=== PATIENT | female | born 1985 | race Two or more races ===

== ENCOUNTER 2022-06-19 20:05 | Inpatient (IN) | payer OTHER, SELFPAY ==
[2022-06-19 20:11] VITALS: BP 118/71; PULSE 71; RESP 18; TEMP 36.6; O2SAT 97; BMI 62.8
--- NOTE | 2022-06-19 22:33 | ED_ITS ---
HPI - Psych General Chief Complaint: Psychiatric Symptoms Stated Complaint: crisis Time Seen by Provider: 06/19/22 21:30 Source: patient Mode of arrival: ambulatory Limitations: no limitations History of Present Illness HPI Narrative: This is a 37-year-old female presenting to the emergency department with complaints of depression, anxiety for the past few days, patient tells me that this all started after she was diagnosed with a facial paralysis ([place] Palsy) on Sunday, 3 days ago at [facility]. She also reports many at home stressors such as her son being autistic, she reports that son is f requently with the grandmother. She reports that she is not eating, or sleeping. She reports that she stays up crying all day and night. She denies visual, auditory and tactile hallucinations. Denies SI and HI. Denies drugs, alcohol and tobacco. Denies any medical complaints at this time MD complaint: feels depressed and anxiety Onset (ago): day(s) (3) Duration: constant History of same: Yes Relieving factors: none Exacerbating factors: none Associated psychiatric symptoms: none Associated symptoms: denies other symptoms Treatments prior to arrival: none Related Data Home Medications Medication Instructions Recorded Confirmed amitriptyline 100 mg tablet 1 tab PO BEDTIME 06/19/22 06/19/22 gabapentin 600 mg tablet 1 tab PO TID 06/19/22 06/19/22 multivitamin 1 tab PO DAILY 06/19/22 06/19/22 oxcarbazepine 300 mg tablet 1 tab PO DAILY@1400 06/19/22 06/19/22 oxcarbazepine 600 mg tablet 1 tab PO BID 06/19/22 06/19/22 pantoprazole 40 mg tablet,delayed 1 tab PO DAILY 06/19/22 06/19/22 release peg [id number] 1 1 drp ophthalmic (eye) BID PRN dry 06/19/22 06/19/22 %-0.2 %-0.2 % eye drops eyes (Artificial Tears ([id number])) prednisone 20 mg tablet 2 tab PO DAILY 06/19/22 06/19/22 sertraline 100 mg tablet 2 tab PO DAILY 06/19/22 06/19/22 Allergies Allergy/AdvReac Type Severity Reaction Status Date / Time morphine Allergy Intermediate Unknown Verified 08/08/22 20:10 Review of Systems Review of Systems: Constitutional : No Weight loss, No Fever, No Chills, No Fatigue, No Malaise ENT/Mouth : No sore throat, No Rhinorrhea Eyes: No Eye Pain, No Swelling, No Redness Cardiovascular : No Chest Pain, No SOB, No Dyspnea on Exertion, No Orthopnea, No Edema, No Palpitations Respiratory : No Cough, No Sputum, No Wheezing Gastrointestinal : No Nausea, No Vomiting, No Diarrhea, No Constipation, No abdominal Pain, No Hematochezia, No Melena Genitourinary : No Dysuria, No Urinary Frequency, No Hematuria, Musculoskeletal : No joint pain, No Myalgias, No Joint Swelling Skin : No Skin Lesions, No rash Neuro : No Weakness, No Numbness, No Dizziness, No Headache Psych : + Anxiety/Panic, + Depression All other systems reviewed and are negative Yes all other systems are reviewed and are negative [facility] Past Medical History Attestation statement: The following information was validated with the patient. Source: old records reviewed and nursing notes reviewed Social History Social History Advance Directives: No Advance Directives Information Provided: No Physical Exam Vital Signs: Vital Signs: Last Vital Signs Temp 98.4 F 06/20/22 00:00 Pulse 57 06/20/22 00:00 Resp 16 06/20/22 00:00 BP 117/58 L 06/20/22 00:00 Pulse Ox 100 06/20/22 00:00 O2 Del Method 06/19/22 22:40 BMI result Body Mass Index 62.8 vss Appearance: Alert.? Oriented X3.? No acute distress.? Head: Normocephalic, atraumatic, no step-offs or deformities + left sided bells palsy Eyes: Pupils equal, round and reactive to light.? ENT: Pharynx normal.? Neck: Normal inspection.? Neck supple.? CVS: Normal heart rate and rhythm.? Pulses normal.? Respiratory: No respiratory distress.? Breath sounds normal.? Abdomen: Soft and nontender.? Skin: Skin warm and dry.? Normal skin color.? Normal skin turgor.? Extremities: No lower extremity edema.? No calf ttp. 5/5 strength to bilateral upper and lower extremities Back: No midline tenderness, no C-spine tenderness, full range of motion, no CVA tenderness bilaterally Neuro: Oriented X 3.? No motor deficit.? No sensory deficit. CN 2-12 intact Course Reevaluation(s) Reevaluation #1: CBC within normal limits. Chemistry with no acute electrolyte abnormalities requiring intervention. Urine clean, no infection. Urine toxicology positive for marijuana. Ethanol negative. COVID negative. At this time patient will be placed into physician observation to allow more time to be evaluated by the behavioral health team. At time observation was started patient common cooperative no acute distress. Will continue to monitor Time: 01:13 MDM - Psych MDM Narrative Medical decision making narrative: 2130 37 year old female presents with anxiety, depression after being diagnosed with a facial paralysis. Physical examination with left-sided Castanon's palsy. I did review [facility] records, patient was seen there for Castanon's palsy, this is not a new finding. She is currently being followed by outpatient providers for this. Plan at this time is medical clearance and evaluation by the behavioral health team. Medical Records Attestation: I reviewed the patient's medical records. Lab Data Attestation: I reviewed the patient's lab results. Result diagrams: 06/19/22 23:51 06/19/22 23:51 Labs: Lab Results 06/19/22 06/19/22 06/19/22 Range/Units 23:11 23:51 23:51 WBC 10.3 (4.8-10.8) X10*3/uL RBC 4.81 (4.20-5.50) X10*6/uL Hgb 13.5 (12.0-16.0) g/dl Hct 42.3 (37.0-47.0) % MCV 87.9 (80.0-98.0) fL MCH 28.1 (27.0-33.0) pg MCHC 31.9 (31.0-35.0) g/dl RDW 13.7 (11.0-16.0) % Plt Count 259 (160-400) X10*3/uL MPV 9.4 (9.4-12.3) fL Immature Gran % (Auto) 0.3 (0.0-0.4) % Neut % (Auto) 82.2 H (45-73) % Lymph % (Auto) 14.5 L (20-40) % Sanders % (Auto) 2.8 (2-11) % Eos % (Auto) 0.0 (0-4) % Baso % (Auto) 0.2 (0-2) % Lymph # (Auto) 1.5 (1.2-4.9) X10*3/uL [place] # (Auto) 0.3 (0.1-1.2) X10*3/uL Eos # (Auto) 0.0 (0.0-0.4) X10*3/uL Baso # (Auto) 0.0 (0.0-0.2) X10*3/uL Abs Immat Gran (auto) 0.03 (0.00-0.03) X10*3/uL Absolute Neuts (auto) 8.4 H (2.0-8.3) x10*3/uL Absolute Nucleated RBC 0.000 (0.0-0.012) X10*3/uL Nucleated RBC % (auto) 0.0 (0.0-0.2) /100WBC Sodium 137 (135-145) mmol/L Potassium 4.6 (3.3-5.1) mmol/L Chloride 100 (96-108) mmol/L Carbon Dioxide 27 (22-29) mmol/L Anion Gap 15 (12-20) BUN 22 H (9-16) mg/dL Creatinine 0.77 (0.5-1.4) mg/dL Estim Creat Clear Calc 172.6 Estimated GFR > 60 Random Glucose 95 (60-115) mg/dL Calcium 9.1 (8.4-10.2) mg/dL Magnesium 2.0 (1.6-2.6) mg/dL Total Bilirubin 0.4 (0.0-1.0) mg/dL AST 16 (5-31) U/L ALT 12 (0-31) U/L Alkaline Phosphatase 53 (39-117) U/L Total Protein 7.7 (6.5-8.0) g/dL Albumin 4.2 (3.5-5.0) g/dL Urine Color Urine Appearance Urine pH (5.0-8.0) Ur Specific [place] (1.005-1.025) Urine Protein (NEG-TRACE) MG/DL Urine Glucose (UA) (NEG) MG/DL Urine Ketones (NEG) MG/DL Urine Blood (NEG) Urine Nitrite (NEG) Ur Leukocyte Esterase (NEG) Urine RBC (0) /HPF Urine WBC (0-4) /HPF Ur Squamous Epith Cells /LPF Urine Bacteria /LPF Urine Mucus /LPF Urine Opiates Screen (Not Detect) Urine Fentanyl Screen (Not Detect) Ur Barbiturates Screen (Not Detect) Ur Phencyclidine Scrn (Not Detect) Ur Amphetamines Screen (Not Detect) U Benzodiazepines Scrn (Not Detect) Urine Cocaine Screen (Not Detect) U Marijuana (THC) Screen (Not Detect) Ethyl Alcohol < 10 mg/dL COVID-19 (ARPIT) Negative (Negative) COVID-19 Clin Com See Note 06/20/22 06/20/22 Range/Units 00:08 00:08 WBC (4.8-10.8) X10*3/uL RBC (4.20-5.50) X10*6/uL Hgb (12.0-16.0) g/dl Hct (37.0-47.0) % MCV (80.0-98.0) fL MCH (27.0-33.0) pg MCHC (31.0-35.0) g/dl RDW (11.0-16.0) % Plt Count (160-400) X10*3/uL MPV (9.4-12.3) fL Immature Gran % (Auto) (0.0-0.4) % Neut % (Auto) (45-73) % Lymph % (Auto) (20-40) % Sanders % (Auto) (2-11) % Eos % (Auto) (0-4) % Baso % (Auto) (0-2) % Lymph # (Auto) (1.2-4.9) X10*3/uL Sanders # (Auto) (0.1-1.2) X10*3/uL Eos # (Auto) (0.0-0.4) X10*3/uL Baso # (Auto) (0.0-0.2) X10*3/uL Abs Immat Gran (auto) (0.00-0.03) X10*3/uL Absolute Neuts (auto) (2.0-8.3) x10*3/uL Absolute Nucleated RBC (0.0-0.012) X10*3/uL Nucleated RBC % (auto) (0.0-0.2) /100WBC Sodium (135-145) mmol/L Potassium (3.3-5.1) mmol/L Chloride (96-108) mmol/L Carbon Dioxide (22-29) mmol/L Anion Gap (12-20) BUN (9-16) mg/dL Creatinine (0.5-1.4) mg/dL Estim Creat Clear Calc Estimated GFR Random Glucose (60-115) mg/dL Calcium (8.4-10.2) mg/dL Magnesium (1.6-2.6) mg/dL Total Bilirubin (0.0-1.0) mg/dL AST (5-31) U/L ALT (0-31) U/L Alkaline Phosphatase (39-117) U/L Total Protein (6.5-8.0) g/dL Albumin (3.5-5.0) g/dL Urine Color YELLOW Urine Appearance CLEAR Urine pH 6.0 (5.0-8.0) Ur Specific [place] 1.020 (1.005-1.025) Urine Protein NEG (NEG-TRACE) MG/DL Urine Glucose (UA) NEG (NEG) MG/DL Urine Ketones NEG (NEG) MG/DL Urine Blood NEG (NEG) Urine Nitrite NEG (NEG) Ur Leukocyte Esterase TRACE H (NEG) Urine RBC 0 (0) /HPF Urine WBC 1-4 (0-4) /HPF Ur Squamous Epith Cells 2+ /LPF Urine Bacteria 2+ /LPF Urine Mucus 2+ /LPF Urine Opiates Screen Not Detected (Not Detect) Urine Fentanyl Screen Not Detected (Not Detect) Ur Barbiturates Screen Not Detected (Not Detect) Ur Phencyclidine Scrn Not Detected (Not Detect) Ur Amphetamines Screen Not Detected (Not Detect) U Benzodiazepines Scrn Not Detected (Not Detect) Urine Cocaine Screen Not Detected (Not Detect) U Marijuana (THC) Screen POSITIVE H (Not Detect) Ethyl Alcohol mg/dL COVID-19 (ARPIT) (Negative) COVID-19 Clin Com Critical Care Time Critical Care Time Critical Care Time: No Discharge Plan Discharge Clinical Impression: Depression, Acute anxiety Patient Disposition: Still a Patient Prescriptions: No Action multivitamin Tablet 1 tab PO DAILY gabapentin 600 mg tablet 1 tab PO TID prednisone 20 mg tablet 2 tab PO DAILY Rx Instructions: X 4 DAYS sertraline 100 mg tablet 2 tab PO DAILY oxcarbazepine 300 mg tablet 1 tab PO DAILY@1400 pantoprazole 40 mg tablet,delayed release (DR/EC) 1 tab PO DAILY oxcarbazepine 600 mg tablet 1 tab PO BID amitriptyline 100 mg tablet 1 tab PO BEDTIME Artificial Tears([id number]) 1-0.2-0.2 % drops 1 drp ophthalmic (eye) BID PRN (Reason: dry eyes)
--- NOTE | 2022-06-19 22:38 | PHA.MEDREC ---
Pharmacy Consult ? Medication Reconciliation Pharmacy has completed the medication reconciliation. PT HAD BOTTLES NEXT TO HER, MATCHED INS CLAIM HX
[2022-06-19 22:40] VITALS: BP 120/62; PULSE 74; RESP 16; TEMP 36.8; O2SAT 98
--- NOTE | 2022-06-19 22:49 | MHC.CARE ---
Pt was evaluated by Amy in the community prior to arrival and is an inpatient psych bedsearch.
[2022-06-19 23:35] LABS: COVID-19 Test Negative (Negative)
[2022-06-19 23:54] LABS: MANUAL DIFF FLAG NO
[2022-06-19 23:56] LABS: Basophils Percent Auto 0.2 % (0-2); Hematocrit 42.3 % (37.0-47.0); Hemoglobin 13.5 g/dl (12.0-16.0); Imm Gran Abs Auto 0.03 X10*3/uL (0.00-0.03); Imm Gran Pct Auto 0.3 % (0.0-0.4); Lymphocytes Absolute Auto 1.5 X10*3/uL (1.2-4.9); Lymphocytes Percent Auto 14.5 % (20-40); Mean Corpuscular HGB Conc 31.9 g/dl (31.0-35.0); Mean Corpuscular Hemoglobin 28.1 pg (27.0-33.0); Mean Corpuscular Volume 87.9 fL (80.0-98.0); Mean Platelet Volume 9.4 fL (9.4-12.3); Monocytes Absolute Auto 0.3 X10*3/uL (0.1-1.2); Monocytes Percent Auto 2.8 % (2-11); Neutrophils Absolute Auto 8.4 x10*3/uL (2.0-8.3); Neutrophils Percent Auto 82.2 % (45-73); Platelet Count 259 X10*3/uL (160-400); Red Blood Count 4.81 X10*6/uL (4.20-5.50); Red Cell Distribution Width 13.7 % (11.0-16.0); White Blood Count 10.3 X10*3/uL (4.8-10.8)
[2022-06-20] VITALS: BP 117/58; PULSE 57; RESP 16; TEMP 36.9; O2SAT 100
--- NOTE | 2022-06-20 | ECG_ITS ---
Test Reason : med clearance Blood Pressure : / mmHG Vent. Rate : 055 BPM Atrial Rate : 055 BPM P-R Int : 136 ms QRS Dur : 084 ms QT Int : 416 ms P-R-T Axes : 035 010 023 degrees QTc Int : 397 ms Sinus bradycardia Otherwise normal ECG No previous ECGs available Referred By: Estrella Ferro Electronically Signed By:YUMI HALL
[2022-06-20 00:19] LABS: Appearance Urine CLEAR; Color Urine YELLOW; Glucose Urine UA NEG (NEG); Leukocyte Esterase Urine TRACE (NEG); Nitrite Urine NEG (NEG); Urine Blood NEG (NEG); Urine Ketones NEG (NEG); Urine Protein NEG (NEG-TRACE)
[2022-06-20 00:22] LABS: Alanine Aminotransferase 12 U/L (0-31); Albumin Level 4.2 g/dL (3.5-5.0); Alkaline Phosphatase 53 U/L (39-117); Anion Gap 15 (12-20); Aspartate Amino Transferase 16 U/L (5-31); Bilirubin Total 0.4 mg/dL (0.0-1.0); Blood Urea Nitrogen 22 mg/dL (9-16); Calcium 9.1 mg/dL (8.4-10.2); Carbon Dioxide 27 mmol/L (22-29); Chloride 100 mmol/L (96-108); Creatinine Clr Calc Pharmacy 172.6; Estimated Glomerular Filt Rate > 60; Ethanol < 10 mg/dL; Glucose Random 95 mg/dL (60-115); Potassium 4.6 mmol/L (3.3-5.1); Sodium 137 mmol/L (135-145); Total Protein 7.7 g/dL (6.5-8.0)
[2022-06-20 00:23] LABS: Bacteria Urine 2+ /LPF; Mucus Urine 2+ /LPF; RBC Urine 0 /HPF (0); Squamous Epithelial Cell Urine 2+ /LPF
[2022-06-20 00:33] LABS: Amphetamine Screen Urine Not Detected (Not Detect); Barbiturates, Urine Not Detected (Not Detect); Benzodiazepines Screen Urine Not Detected (Not Detect); Cannabinoid Screen Urine POSITIVE (Not Detect); Cocaine Screen Urine Not Detected (Not Detect); Fentanyl, urine Not Detected (Not Detect); Opiate Screen Urine Not Detected (Not Detect); Phencyclidine Screen Urine Not Detected (Not Detect)
[2022-06-20 04:00] VITALS: BP 103/54; PULSE 55; RESP 16; TEMP 36.8; O2SAT 100
[2022-06-20 06:00] VITALS: BP 102/49; PULSE 51; RESP 16; TEMP 36.8; O2SAT 100
[2022-06-20] MEDS: Acetaminophen 325 MG TABLET 650 MG PO ×2 (09:14→20:47)
[2022-06-20] MEDS: OXcarbazepine 300 MG TABLET 600 MG PO ×2 (09:14→20:47)
[2022-06-20] MEDS: Omeprazole 20 MG CAPSULE.DR PO (09:15)
[2022-06-20] MEDS: Gabapentin 600 MG TABLET PO ×3 (09:15→20:47)
[2022-06-20] MEDS: Sertraline HCL 100 MG TABLET 200 MG PO (09:15)
[2022-06-20] MEDS: Multivitamin TABLET 1 TAB PO (09:15)
[2022-06-20] MEDS: predniSONE 20 MG TABLET 40 MG PO (09:15)
[2022-06-20] MEDS: OXcarbazepine 300 MG TABLET PO (14:09)
[2022-06-20] MEDS: Acetaminophen 325 MG TABLET 975 MG PO (14:11)
[2022-06-20 14:18] VITALS: BP 115/55; PULSE 68; RESP 14; O2SAT 98
[2022-06-20] MEDS: Amitriptyline HCl 50 MG TABLET 100 MG PO (20:47)
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
[2022-06-21] MEDS: OXcarbazepine 300 MG TABLET 600 MG PO ×2 (08:23→21:16)
[2022-06-21] MEDS: Omeprazole 20 MG CAPSULE.DR PO (08:23)
[2022-06-21] MEDS: Multivitamin TABLET 1 TAB PO (08:23)
[2022-06-21] MEDS: predniSONE 20 MG TABLET 40 MG PO (08:23)
[2022-06-21] MEDS: Gabapentin 600 MG TABLET PO ×3 (08:24→21:16)
[2022-06-21] MEDS: Sertraline HCL 100 MG TABLET 200 MG PO (08:24)
[2022-06-21 08:28] VITALS: BP 116/55; PULSE 61; RESP 20; TEMP 36.7; O2SAT 97
[2022-06-21 09:11] LABS: Estimated Average Glucose 97 mg/dL
[2022-06-21 09:35] LABS: Cholesterol 169 mg/dL; HDL Cholesterol 53 mg/dL; LDL Cholesterol Calculated 107 mg/dl; Magnesium 2.1 mg/dL (1.6-2.6); Triglycerides 48 mg/dL
[2022-06-21 09:46] LABS: Free T4 (Free Thyroxine) 0.94 ng/dL (0.71-1.85); Thyroid Stimulating Hormone 0.65 uIU/mL (0.32-4.0)
[2022-06-21 09:59] LABS: Folate 12.8 ng/mL (> or = 4.0); Vitamin B12 544 pg/mL (200-900)
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
[2022-06-21] MEDS: OXcarbazepine 300 MG TABLET PO (14:31)
[2022-06-21] MEDS: Artificial Tears 15 ML DROPS 2 DROP EYE-BOTH (15:05)
[2022-06-21] MEDS: clonazePAM 0.5 MG TABLET PO (15:05)
[2022-06-21 18:00] VITALS: BP 108/63; PULSE 63; RESP 18; TEMP 36.8; O2SAT 95
[2022-06-21] MEDS: traZODone HCL 50 MG TABLET PO (21:16)
[2022-06-21] MEDS: Amitriptyline HCl 50 MG TABLET 100 MG PO (21:17)
[2022-06-22 06:00] VITALS: BP 102/60; PULSE 71; RESP 15; TEMP 36.6; O2SAT 95
[2022-06-22 07:00] VITALS: BMI 62.1
[2022-06-22] MEDS: Omeprazole 20 MG CAPSULE.DR PO (09:39)
[2022-06-22] MEDS: Multivitamin TABLET 1 TAB PO (09:41)
[2022-06-22] MEDS: Gabapentin 600 MG TABLET PO ×3 (09:41→20:01)
[2022-06-22] MEDS: predniSONE 20 MG TABLET 40 MG PO (09:41)
[2022-06-22] MEDS: Sertraline HCL 100 MG TABLET 200 MG PO (09:41)
[2022-06-22] MEDS: OXcarbazepine 300 MG TABLET 600 MG PO ×2 (09:41→20:01)
[2022-06-22] MEDS: Artificial Tears 15 ML DROPS 2 DROP EYE-BOTH ×2 (09:44→20:39)
--- NOTE | 2022-06-22 10:30 | P.PNPSI_ITS ---
Subjective Subjective Date of Service: 06/22/22 Reason For Visit: Depression Interim History: Patient seen with punch press setter Patient reports she still feeling depressed and anxious; she says it has been difficult to process her feelings with such intense activity on the unit (high acuity by male peers). She is ambivalent about changing/adding medications; she feels that 80% of the time her medications are adequate, however she finds she can still get quite anxious and emotional and so upon further discussion agrees to add BuSpar to her medication regimen to see if it can help lower some of her chronic anxiety. She also was interested in increasing amitriptyline, however agrees to hold off for now and see how she does. Mental Status Exam Mental Status Exam Narrative: Pt is alert and oriented; behavior is cooperative, friendly and calm; patient is not in distress; dressed in casual attire with unkempt hair but adequate hygiene; mood is described as depressed and affect congruent; eye contact appropriate; Speech is normal rate, volume and prosody and not pressured; no psychomotor agitation/retardation present; thought process is organized and goal directed; Thought content is on tx; otherwise pertinent to relevant topics and without any delusional content, paranoid ideations or grandiosity; denies any SI/HI. There is no evidence of perceptual disturbance. Patients insight and judgment appear intact. Diagnostics Vital Signs (24Hr): Vital Signs - 24 hr 06/21/22 18:00 06/22/22 06:00 Temperature 98.3 F 97.8 F Pulse Rate 63 71 Respiratory Rate 18 15 Blood Pressure 108/63 102/60 Pulse Oximetry 95 95 Oxygen Delivery Method Room Air Room Air BMI result Body Mass Index 62.1 Labs Results: 06/19/22 23:51 06/19/22 23:51 Labs: Laboratory Results - last 48 hr 06/21/22 06/21/22 06/21/22 08:05 08:05 08:05 Estimat Average Glucose 97 Hemoglobin A1c % 5.0 Magnesium 2.1 Triglycerides 48 Cholesterol 169 LDL Cholesterol, Calc 107 HDL Cholesterol 53 Vitamin B12 544 Folate 12.8 TSH 0.65 Free T4 0.94 Medications Medications Current Medications Acetaminophen (Acetaminophen 325 Mg Tablet) 650 mg PO Q6H PRN PRN Reason: Headache/Pain Mild Scale (1-3) Last Admin: 06/20/22 20:47 Dose: 650 mg Al Hydroxide/Mg Hydroxide (Magnesium Hydrox/Alum Hydrox 30 Ml Oral.Susp) 30 ml PO Q6H PRN PRN Reason: Heartburn/Nausea Amitriptyline HCl (Amitriptyline Hcl 50 Mg Tablet) 100 mg PO BEDTIME [facility] Last Admin: 06/21/22 21:17 Dose: 100 mg Artificial Tears (Artificial Tears 15 Ml Drops) 2 drop EYE-BOTH BID PRN PRN Reason: dry eyes Last Admin: 06/22/22 09:44 Dose: 2 drop Gabapentin (Gabapentin 600 Mg Tablet) 600 mg PO TID [facility] Last Admin: 06/22/22 09:41 Dose: 600 mg Hydroxyzine HCl (Hydroxyzine Hcl 25 Mg Tablet) 25 mg PO Q6H PRN PRN Reason: Anxiety Magnesium Hydroxide (Milk Of Magnesia 30 Ml Oral.Susp) 30 ml PO DAILY PRN PRN Reason: Constipation Multivitamins/Vitamin C (Multivitamin Tablet) 1 tab PO DAILY [facility] Last Admin: 06/22/22 09:41 Dose: 1 tab Omeprazole (Omeprazole 20 Mg Capsule.Dr) 20 mg PO DAILY@0630 [facility] Last Admin: 06/22/22 09:39 Dose: 20 mg Oxcarbazepine (Oxcarbazepine 300 Mg Tablet) 300 mg PO DAILY@1400 [facility] Last Admin: 06/21/22 14:31 Dose: 300 mg Oxcarbazepine (Oxcarbazepine 300 Mg Tablet) 600 mg PO BID [facility] Last Admin: 06/22/22 09:41 Dose: 600 mg Pharmacy Consult (Consult Rx Perform Med Rec) 1 each MISCELLANE ONCE PRN PRN Reason: Consult order Prednisone (Prednisone 20 Mg Tablet) 40 mg PO DAILY [facility] Last Admin: 06/22/22 09:41 Dose: 40 mg Sertraline HCl (Sertraline Hcl 100 Mg Tablet) 200 mg PO DAILY [facility] Last Admin: 06/22/22 09:41 Dose: 200 mg Trazodone HCl (Trazodone Hcl 50 Mg Tablet) 50 mg PO BEDTIME PRN PRN Reason: Insomnia Last Admin: 06/21/22 21:16 Dose: 50 mg Allergies Allergies Allergy/AdvReac Type Severity Reaction Status Date / Time morphine Allergy Intermediate Unknown Verified 06/19/22 20:10 Assessment & Plan Assessment & Plan (1) Adjustment disorder with mixed anxiety and depressed mood: Status: Acute Code(s): F43.23 - Adjustment disorder with mixed anxiety and depressed mood (2) Castanon's palsy: Status: Acute Code(s): G51.0 - Castanon's palsy (3) MDD (major depressive disorder), recurrent episode, moderate: Status: Acute Code(s): F33.1 - Major depressive disorder, recurrent, moderate (4) Chronic post-traumatic stress disorder (PTSD): Status: Acute Code(s): F43.12 - Post-traumatic stress disorder, chronic Plan Patient seen with punch press setter Patient is a is 37 year old woman with history depression, anxiety, PTSD, currently with bills palsy affecting left side of face who presents for anxiety and depression, feeling overwhelmed by psychosocial stressors and recently acquiring Castanon's palsy. 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 Patient educated on: diagnosis and medication risk/benefits Informed Consent: understands Reason for contiued inpatient stay Substantial Risk for: stable for discharge
[2022-06-22] MEDS: Acetaminophen 325 MG TABLET 650 MG PO ×2 (10:42→19:43)
[2022-06-22] MEDS: OXcarbazepine 300 MG TABLET PO (13:23)
[2022-06-22] MEDS: Lidocaine 4 % Patch ADH..PATCH 1 PATCH TRANSDERMA (14:40)
[2022-06-22] MEDS: busPIRone HCl 5 MG TABLET PO ×2 (15:23→20:02)
[2022-06-22 16:21] VITALS: BP 122/57; PULSE 73; TEMP 36.7; O2SAT 98
[2022-06-22] MEDS: Amitriptyline HCl 50 MG TABLET 100 MG PO (20:01)
[2022-06-23 06:00] VITALS: BP 112/59; PULSE 69; RESP 18; TEMP 36.6; O2SAT 96
[2022-06-23] MEDS: Omeprazole 20 MG CAPSULE.DR PO (06:22)
[2022-06-23] MEDS: Gabapentin 600 MG TABLET PO ×3 (09:09→20:47)
[2022-06-23] MEDS: busPIRone HCl 5 MG TABLET PO (09:09)
[2022-06-23] MEDS: Sertraline HCL 100 MG TABLET 200 MG PO (09:10)
[2022-06-23] MEDS: Multivitamin TABLET 1 TAB PO (09:10)
[2022-06-23] MEDS: OXcarbazepine 300 MG TABLET 600 MG PO ×2 (09:10→20:49)
[2022-06-23] MEDS: Lidocaine 4 % Patch ADH..PATCH 1 PATCH TRANSDERMA (09:10)
[2022-06-23] MEDS: Acetaminophen 325 MG TABLET 650 MG PO ×2 (09:17→18:01)
--- NOTE | 2022-06-23 10:35 | P.PNPSI_ITS ---
Subjective Subjective Date of Service: 06/23/22 Reason For Visit: Depression Interim History: Patient seen with official court interpreter Patient reports she is feeling better. She says she felt calm most of the day yesterday, despite the fact that the acuity on the unit was quite high. She f eels that the addition of buspirone has been helpful and wants to continue it and agrees to increase dose. She still did not sleep well and asks if amitriptyline can be increased to which gag writer agrees. Patient was relieved to find out she had a neuro appointment for July 19 and that cardiology appointment is pending. She said that her daughter call today crying because of some bill at home and still Patient did not get dysregulated which is evidence to her that she is doing better. Mental Status Exam Mental Status Exam Narrative: Pt is alert and oriented; behavior is cooperative, friendly and calm; patient is not in distress; dressed in casual attire with unkempt hair but adequate hygiene; mood is described as better and affect congruent; eye contact appropriate; Speech is normal rate, volume and prosody and not pressured; no psychomotor agitation/retardation present; thought process is organized and goal directed; Thought content is on tx; otherwise pertinent to relevant topics and without any delusional content, paranoid ideations or grandiosity; denies any SI/HI. There is no evidence of perceptual disturbance. Patients insight and judgment appear intact. Diagnostics Vital Signs (24Hr): Vital Signs - 24 hr 06/22/22 16:21 06/23/22 06:00 Temperature 98.1 F 97.9 F Pulse Rate 73 69 Respiratory Rate 18 Blood Pressure 122/57 L 112/59 L Pulse Oximetry 98 96 BMI result Body Mass Index 62.1 Labs Results: 06/19/22 23:51 06/19/22 23:51 Medications Medications Current Medications Acetaminophen (Acetaminophen 325 Mg Tablet) 650 mg PO Q6H PRN PRN Reason: Headache/Pain Mild Scale (1-3) Last Admin: 06/23/22 09:17 Dose: 650 mg Al Hydroxide/Mg Hydroxide (Magnesium Hydrox/Alum Hydrox 30 Ml Oral.Susp) 30 ml PO Q6H PRN PRN Reason: Heartburn/Nausea Amitriptyline HCl (Amitriptyline Hcl 50 Mg Tablet) 100 mg PO BEDTIME [facility] Last Admin: 06/22/22 20:01 Dose: 100 mg Artificial Tears (Artificial Tears 15 Ml Drops) 2 drop EYE-BOTH BID PRN PRN Reason: dry eyes Last Admin: 06/22/22 20:39 Dose: 2 drop Gabapentin (Gabapentin 600 Mg Tablet) 600 mg PO TID [facility] Last Admin: 06/23/22 09:09 Dose: 600 mg Hydroxyzine HCl (Hydroxyzine Hcl 25 Mg Tablet) 25 mg PO Q6H PRN PRN Reason: Anxiety Lidocaine (Lidocaine 4 % Patch Adh..Patch) 1 patch TRANSDERMA DAILY [facility]; Protocol Last Admin: 06/23/22 09:10 Dose: 1 patch Magnesium Hydroxide (Milk Of Magnesia 30 Ml Oral.Susp) 30 ml PO DAILY PRN PRN Reason: Constipation Multivitamins/Vitamin C (Multivitamin Tablet) 1 tab PO DAILY [facility] Last Admin: 06/23/22 09:10 Dose: 1 tab Omeprazole (Omeprazole 20 Mg Capsule.Dr) 20 mg PO DAILY@0630 [facility] Last Admin: 06/23/22 06:22 Dose: 20 mg Oxcarbazepine (Oxcarbazepine 300 Mg Tablet) 300 mg PO DAILY@1400 [facility] Last Admin: 06/22/22 13:23 Dose: 300 mg Oxcarbazepine (Oxcarbazepine 300 Mg Tablet) 600 mg PO BID [facility] Last Admin: 06/23/22 09:10 Dose: 600 mg Pharmacy Consult (Consult Rx Perform Med Rec) 1 each MISCELLANE ONCE PRN PRN Reason: Consult order Sertraline HCl (Sertraline Hcl 100 Mg Tablet) 200 mg PO DAILY [facility] Last Admin: 06/23/22 09:10 Dose: 200 mg Trazodone HCl (Trazodone Hcl 50 Mg Tablet) 50 mg PO BEDTIME PRN PRN Reason: Insomnia Last Admin: 06/21/22 21:16 Dose: 50 mg Allergies Allergies Allergy/AdvReac Type Severity Reaction Status Date / Time morphine Allergy Intermediate Unknown Verified 06/19/22 20:10 Assessment & Plan Assessment & Plan (1) Adjustment disorder with mixed anxiety and depressed mood: Status: Acute Code(s): F43.23 - Adjustment disorder with mixed anxiety and depressed mood (2) Castanon's palsy: Status: Acute Code(s): G51.0 - Castanon's palsy (3) MDD (major depressive disorder), recurrent episode, moderate: Status: Acute Code(s): F33.1 - Major depressive disorder, recurrent, moderate (4) Chronic post-traumatic stress disorder (PTSD): Status: Acute Code(s): F43.12 - Post-traumatic stress disorder, chronic Plan Patient seen with official court interpreter Patient is a is 37 year old woman with history depression, anxiety, PTSD, currently with bills palsy affecting left side of face who presents for anxiety and depression, feeling overwhelmed by psychosocial stressors and recently acquiring Castanon's palsy. -seems possibly adjustment disorder and that medication regimen is currently adequate; gave patient 1 time dose of clonazepam, otherwise will give patient some time to settle down before making medication changes 06/22 still depressed, no SI; agrees to buspirone 06/23 Patient feeling better, more calm, feels medication change helping Plan: CV Q 15 minute checks Increased to Buspirone 10 mg BID;Will also make A 10 mg tab available for p.r.n. anxiety Increased to amitriptyline 125 q.h.s. 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 Patient educated on: diagnosis and medication risk/benefits Informed Consent: understands Reason for contiued inpatient stay Substantial Risk for: stable for discharge
[2022-06-23] MEDS: OXcarbazepine 300 MG TABLET PO (14:28)
[2022-06-23] MEDS: Artificial Tears 15 ML DROPS 2 DROP EYE-BOTH (15:07)
[2022-06-23 16:03] VITALS: BP 118/65; PULSE 96; TEMP 37.2; O2SAT 96
[2022-06-23] MEDS: Magnesium Hydrox/Alum Hydrox 30 ML ORAL.SUSP PO (18:01)
[2022-06-23] MEDS: Amitriptyline HCl 50 MG TABLET 125 MG PO (20:47)
[2022-06-23] MEDS: busPIRone HCl 10 MG TABLET PO (20:49)
[2022-06-24 06:37] VITALS: BP 105/60; PULSE 70; TEMP 37.1; O2SAT 95
[2022-06-24] MEDS: Multivitamin TABLET 1 TAB PO (09:06)
[2022-06-24] MEDS: Sertraline HCL 100 MG TABLET 200 MG PO (09:06)
[2022-06-24] MEDS: Gabapentin 600 MG TABLET PO ×3 (09:06→19:59)
[2022-06-24] MEDS: busPIRone HCl 10 MG TABLET PO ×2 (09:06→19:59)
[2022-06-24] MEDS: OXcarbazepine 300 MG TABLET 600 MG PO ×2 (09:06→19:58)
[2022-06-24] MEDS: Omeprazole 20 MG CAPSULE.DR PO (09:07)
[2022-06-24] MEDS: Lidocaine 4 % Patch ADH..PATCH 1 PATCH TRANSDERMA (10:14)
[2022-06-24] MEDS: Milk of Magnesia 30 ML ORAL.SUSP PO (13:47)
[2022-06-24] MEDS: OXcarbazepine 300 MG TABLET PO (14:50)
--- NOTE | 2022-06-24 16:15 | P.PNPSI_ITS ---
Subjective Subjective Date of Service: 06/24/22 Reason For Visit: Depression Interim History: Remains feeling that anxiety is much less; also reports that she slept well, the 1st time since admission and wants to continue with increased amitriptyline dose. Patient feels mood has improved as well. Complains of constipation agrees to Mag citrate. Patient did complain of some tremors yesterday evening and wondered if it was from the new medication; the resolved on their own Mental Status Exam Mental Status Exam Narrative: Pt is alert and oriented; behavior is cooperative, friendly and calm; patient is not in distress; dressed in casual attire with unkempt hair but adequate hygiene; mood is described as better and affect congruent; eye contact appropriate; Speech is normal rate, volume and prosody and not pressured; no psychomotor agitation/retardation present; thought process is organized and goal directed; Thought content is on tx; otherwise pertinent to relevant topics and without any delusional content, paranoid ideations or grandiosity; denies any SI/HI. There is no evidence of perceptual disturbance. Patients insight and judgment appear intact. Diagnostics Vital Signs (24Hr): Vital Signs - 24 hr 06/24/22 06:37 Temperature 98.8 F Pulse Rate 70 Blood Pressure 105/60 Pulse Oximetry 95 BMI result Body Mass Index 62.1 Labs Results: 06/19/22 23:51 06/19/22 23:51 Medications Medications Current Medications Acetaminophen (Acetaminophen 325 Mg Tablet) 650 mg PO Q6H PRN PRN Reason: Headache/Pain Mild Scale (1-3) Last Admin: 06/23/22 18:01 Dose: 650 mg Al Hydroxide/Mg Hydroxide (Magnesium Hydrox/Alum Hydrox 30 Ml Oral.Susp) 30 ml PO Q6H PRN PRN Reason: Heartburn/Nausea Last Admin: 06/23/22 18:01 Dose: 30 ml Amitriptyline HCl (Amitriptyline Hcl 50 Mg Tablet) 125 mg PO BEDTIME [facility] Last Admin: 06/23/22 20:47 Dose: 125 mg Artificial Tears (Artificial Tears 15 Ml Drops) 2 drop EYE-BOTH BID PRN PRN Reason: dry eyes Last Admin: 06/23/22 15:07 Dose: 2 drop Buspirone HCl (Buspirone Hcl 10 Mg Tablet) 10 mg PO BID [facility] Last Admin: 06/24/22 09:06 Dose: 10 mg Buspirone HCl (Buspirone Hcl 10 Mg Tablet) 10 mg PO DAILY PRN PRN Reason: anxiety Gabapentin (Gabapentin 600 Mg Tablet) 600 mg PO TID [facility] Last Admin: 06/24/22 14:50 Dose: 600 mg Lidocaine (Lidocaine 4 % Patch Adh..Patch) 1 patch TRANSDERMA DAILY [facility]; Protocol Last Admin: 06/24/22 10:14 Dose: 1 patch Magnesium Hydroxide (Milk Of Magnesia 30 Ml Oral.Susp) 30 ml PO DAILY PRN PRN Reason: Constipation Last Admin: 06/24/22 13:47 Dose: 30 ml Multivitamins/Vitamin C (Multivitamin Tablet) 1 tab PO DAILY [facility] Last Admin: 06/24/22 09:06 Dose: 1 tab Omeprazole (Omeprazole 20 Mg Capsule.Dr) 20 mg PO DAILY@0630 [facility] Last Admin: 06/24/22 09:07 Dose: 20 mg Oxcarbazepine (Oxcarbazepine 300 Mg Tablet) 300 mg PO DAILY@1400 [facility] Last Admin: 06/24/22 14:50 Dose: 300 mg Oxcarbazepine (Oxcarbazepine 300 Mg Tablet) 600 mg PO BID [facility] Last Admin: 06/24/22 09:06 Dose: 600 mg Pharmacy Consult (Consult Rx Perform Med Rec) 1 each MISCELLANE ONCE PRN PRN Reason: Consult order Sertraline HCl (Sertraline Hcl 100 Mg Tablet) 200 mg PO DAILY [facility] Last Admin: 06/24/22 09:06 Dose: 200 mg Trazodone HCl (Trazodone Hcl 50 Mg Tablet) 50 mg PO BEDTIME PRN PRN Reason: Insomnia Last Admin: 06/21/22 21:16 Dose: 50 mg Allergies Allergies Allergy/AdvReac Type Severity Reaction Status Date / Time morphine Allergy Intermediate Unknown Verified 06/19/22 20:10 Assessment & Plan Assessment & Plan (1) Adjustment disorder with mixed anxiety and depressed mood: Status: Acute Code(s): F43.23 - Adjustment disorder with mixed anxiety and depressed mood (2) Castanon's palsy: Status: Acute Code(s): G51.0 - Castanon's palsy (3) MDD (major depressive disorder), recurrent episode, moderate: Status: Acute Code(s): F33.1 - Major depressive disorder, recurrent, moderate (4) Chronic post-traumatic stress disorder (PTSD): Status: Acute Code(s): F43.12 - Post-traumatic stress disorder, chronic Plan Patient seen with nuclear waste process operator Patient is a is 37 year old woman with history depression, anxiety, PTSD, currently with bills palsy affecting left side of face who presents for anxiety and depression, feeling overwhelmed by psychosocial stressors and recently acquiring Castanon's palsy. -seems possibly adjustment disorder and that medication regimen is currently adequate; gave patient 1 time dose of clonazepam, otherwise will give patient some time to settle down before making medication changes 06/22 still depressed, no SI; agrees to buspirone 06/23 Patient feeling better, more calm, feels medication change helping 06/24 patient continues to feel better, anxiety well treated feeling ready towards discharge; Patient did complain of some tremors yesterday evening and wondered if it was from the new medication; the resolved on their own. Will keep patient another day or so to make sure no more medication side effects otherwise will proceed with discharge plans Plan: CV Q 15 minute checks Continue Buspirone 10 mg BID;Will also make A 10 mg tab available for p.r.n. anxiety Continue amitriptyline 125 q.h.s. 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 Patient educated on: diagnosis and medication risk/benefits Informed Consent: understands Reason for contiued inpatient stay Substantial Risk for: stable for discharge
[2022-06-24] MEDS: Amitriptyline HCl 50 MG TABLET 125 MG PO (19:59)
[2022-06-24] MEDS: traZODone HCL 50 MG TABLET PO (19:59)
[2022-06-24] MEDS: polyethylene glycoL 3350 17 GM POWD.PACK PO (19:59)
[2022-06-24] MEDS: Sodium Phosphate,Mono-Dibasic 133 ML ENEMA PR (21:37)
--- NOTE | 2022-06-24 21:53 | PC.NURSE ---
pt given fleet enema at approximately 2148. effectiveness pending. aware. will monitor.
[2022-06-25 09:00] VITALS: BP 130/81; PULSE 89; TEMP 36.2
[2022-06-25] MEDS: busPIRone HCl 10 MG TABLET PO ×3 (09:18→20:10)
[2022-06-25] MEDS: Multivitamin TABLET 1 TAB PO (09:18)
[2022-06-25] MEDS: Omeprazole 20 MG CAPSULE.DR PO (09:18)
[2022-06-25] MEDS: Sertraline HCL 100 MG TABLET 200 MG PO (09:18)
[2022-06-25] MEDS: OXcarbazepine 300 MG TABLET 600 MG PO ×2 (09:18→20:10)
[2022-06-25] MEDS: Gabapentin 600 MG TABLET PO ×3 (09:18→20:10)
[2022-06-25] MEDS: polyethylene glycoL 3350 17 GM POWD.PACK PO ×2 (09:19→20:10)
[2022-06-25] MEDS: Lidocaine 4 % Patch ADH..PATCH 1 PATCH TRANSDERMA (09:19)
--- NOTE | 2022-06-25 13:38 | P.PNPSI_ITS ---
Subjective Subjective Date of Service: 06/25/22 Reason For Visit: Depression Interim History: She reports mood can still be up and down but overall better and she feels stable. Anxiety overall better. She still finds herself getting anxious and wanted help with medication and agreed to increase buspirone to 3 times a day. Will also try it as a p.r.n.. Discussed Thorazine but will hold off for now to see if BuSpar works instead. Patient is anxious to return home and deal with the various troubling situations in her life however she feels careful. Mental Status Exam Mental Status Exam Narrative: Pt is alert and oriented; behavior is cooperative, friendly and calm; patient is not in distress; dressed in casual attire with unkempt hair but adequate hygiene; mood is described as up and down and affect calm; eye contact appropriate; Speech is normal rate, volume and prosody and not pressured; no psychomotor agitation/retardation present; thought process is organized and goal directed; Thought content is on tx; otherwise pertinent to relevant topics and without any delusional content, paranoid ideations or grandiosity; denies any SI/HI. There is no evidence of perceptual disturbance. Patients insight and judgment appear intact. Diagnostics Vital Signs (24Hr): Vital Signs - 24 hr 06/25/22 09:00 Temperature 97.2 F Pulse Rate 89 Blood Pressure 130/81 BMI result Body Mass Index 62.1 Labs Results: 06/19/22 23:51 06/19/22 23:51 Medications Medications Current Medications Acetaminophen (Acetaminophen 325 Mg Tablet) 650 mg PO Q6H PRN PRN Reason: Headache/Pain Mild Scale (1-3) Last Admin: 06/23/22 18:01 Dose: 650 mg Al Hydroxide/Mg Hydroxide (Magnesium Hydrox/Alum Hydrox 30 Ml Oral.Susp) 30 ml PO Q6H PRN PRN Reason: Heartburn/Nausea Last Admin: 06/23/22 18:01 Dose: 30 ml Amitriptyline HCl (Amitriptyline Hcl 50 Mg Tablet) 125 mg PO BEDTIME [facility] Last Admin: 06/24/22 19:59 Dose: 125 mg Artificial Tears (Artificial Tears 15 Ml Drops) 2 drop EYE-BOTH BID PRN PRN Reason: dry eyes Last Admin: 06/23/22 15:07 Dose: 2 drop Buspirone HCl (Buspirone Hcl 10 Mg Tablet) 10 mg PO BID [facility] Last Admin: 06/25/22 09:18 Dose: 10 mg Buspirone HCl (Buspirone Hcl 10 Mg Tablet) 10 mg PO DAILY PRN PRN Reason: anxiety Gabapentin (Gabapentin 600 Mg Tablet) 600 mg PO TID [facility] Last Admin: 06/25/22 09:18 Dose: 600 mg Lidocaine (Lidocaine 4 % Patch Adh..Patch) 1 patch TRANSDERMA DAILY [facility]; Protocol Last Admin: 06/25/22 09:19 Dose: 1 patch Magnesium Hydroxide (Milk Of Magnesia 30 Ml Oral.Susp) 30 ml PO DAILY PRN PRN Reason: Constipation Last Admin: 06/24/22 13:47 Dose: 30 ml Multivitamins/Vitamin C (Multivitamin Tablet) 1 tab PO DAILY [facility] Last Admin: 06/25/22 09:18 Dose: 1 tab Omeprazole (Omeprazole 20 Mg Capsule.Dr) 20 mg PO DAILY@0630 [facility] Last Admin: 06/25/22 09:18 Dose: 20 mg Oxcarbazepine (Oxcarbazepine 300 Mg Tablet) 300 mg PO DAILY@1400 [facility] Last Admin: 06/24/22 14:50 Dose: 300 mg Oxcarbazepine (Oxcarbazepine 300 Mg Tablet) 600 mg PO BID [facility] Last Admin: 06/25/22 09:18 Dose: 600 mg Pharmacy Consult (Consult Rx Perform Med Rec) 1 each MISCELLANE ONCE PRN PRN Reason: Consult order Polyethylene Glycol (Polyethylene Glycol 3350 17 Gm Powd.Pack) 17 gm PO ONCE PRN PRN Reason: constipation Polyethylene Glycol (Polyethylene Glycol 3350 17 Gm Powd.Pack) 17 gm PO BID [facility] Last Admin: 06/25/22 09:19 Dose: 17 gm Sertraline HCl (Sertraline Hcl 100 Mg Tablet) 200 mg PO DAILY [facility] Last Admin: 06/25/22 09:18 Dose: 200 mg Sodium Biphosphate/Sodium Phosphate (Sodium Phosphate,[place]-Dibasic 133 Ml Enema) 133 ml VT ONCE PRN PRN Reason: Constipation Last Admin: 06/24/22 21:37 Dose: 133 ml Trazodone HCl (Trazodone Hcl 50 Mg Tablet) 50 mg PO BEDTIME PRN PRN Reason: Insomnia Last Admin: 06/24/22 19:59 Dose: 50 mg Allergies Allergies Allergy/AdvReac Type Severity Reaction Status Date / Time morphine Allergy Intermediate Unknown Verified 06/19/22 20:10 Assessment & Plan Assessment & Plan (1) Adjustment disorder with mixed anxiety and depressed mood: Status: Acute Code(s): F43.23 - Adjustment disorder with mixed anxiety and depressed mood (2) Castanon's palsy: Status: Acute Code(s): G51.0 - Castanon's palsy (3) MDD (major depressive disorder), recurrent episode, moderate: Status: Acute Code(s): F33.1 - Major depressive disorder, recurrent, moderate (4) Chronic post-traumatic stress disorder (PTSD): Status: Acute Code(s): F43.12 - Post-traumatic stress disorder, chronic Plan Patient seen with zinc miner Patient is a is 37 year old woman with history depression, anxiety, PTSD, currently with bills palsy affecting left side of face who presents for anxiety and depression, feeling overwhelmed by psychosocial stressors and recently acquiring Castanon's palsy. -seems possibly adjustment disorder and that medication regimen is currently adequate; gave patient 1 time dose of clonazepam, otherwise will give patient some time to settle down before making medication changes 06/22 still depressed, no SI; agrees to buspirone 06/23 Patient feeling better, more calm, feels medication change helping 06/24 patient continues to feel better, anxiety well treated feeling ready towards discharge; Patient did complain of some tremors yesterday evening and wondered if it was from the new medication; the resolved on their own. Will keep patient another day or so to make sure no more medication side effects otherwise will proceed with discharge plans 06/25 patient tolerating medications; mood is still better and anxiety lessened. Plan: CV Q 15 minute checks Increase to Buspirone 10 mg TID;Will also make A 10 mg tab available for p.r.n. anxiety Continue amitriptyline 125 q.h.s. 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 Patient educated on: medication risk/benefits and therapeutic strategies Informed Consent: understands Reason for contiued inpatient stay Substantial Risk for: stable for discharge
[2022-06-25] MEDS: OXcarbazepine 300 MG TABLET PO (16:00)
[2022-06-25 17:11] VITALS: BP 135/85; PULSE 83; RESP 18; O2SAT 96
[2022-06-25] MEDS: Amitriptyline HCl 50 MG TABLET 125 MG PO (20:09)
[2022-06-25] MEDS: traZODone HCL 50 MG TABLET PO (20:10)
[2022-06-25] MEDS: Acetaminophen 325 MG TABLET 650 MG PO (22:19)
[2022-06-26 06:00] VITALS: BP 125/83; PULSE 107; RESP 18; TEMP 36.3; O2SAT 95
[2022-06-26] MEDS: busPIRone HCl 10 MG TABLET PO (08:53)
[2022-06-26] MEDS: Omeprazole 20 MG CAPSULE.DR PO (08:53)
[2022-06-26] MEDS: OXcarbazepine 300 MG TABLET 600 MG PO (08:53)
[2022-06-26] MEDS: Multivitamin TABLET 1 TAB PO (08:53)
[2022-06-26] MEDS: Sertraline HCL 100 MG TABLET 200 MG PO (08:53)
[2022-06-26] MEDS: Gabapentin 600 MG TABLET PO (08:53)
[2022-06-26] MEDS: Lidocaine 4 % Patch ADH..PATCH 1 PATCH TRANSDERMA (08:54)
--- NOTE | 2022-06-26 12:13 | PM.PSYDC ---
DS: Providers Provider Date of Service: 06/26/22 Date of admission: 06/20/22 17:09 Date of discharge: 06/26/22 Primary care physician: Unknown Physician Attending physician on admission: Christian Guerra Discharging clinician: Christian Guerra DS: Diagnosis Discharge Diagnosis (1) Adjustment disorder with mixed anxiety and depressed mood: Status: Acute (2) Castanon's palsy: Status: Acute (3) MDD (major depressive disorder), recurrent episode, moderate: Status: Acute (4) Chronic post-traumatic stress disorder (PTSD): Status: Acute DS: Medications Discharge Medications Home Medications: Home Medications Medication Instructions Recorded Confirmed multivitamin 1 tab PO DAILY 06/19/22 06/19/22 Previous Rx's Medication Instructions Recorded amitriptyline 100 mg tablet 100 mg PO BEDTIME 30 days #30 tabs 06/26/22 amitriptyline 25 mg tablet 25 mg PO BEDTIME 30 days #30 tabs 06/26/22 buspirone 10 mg tablet 10 mg PO TID 30 days #110 tabs 06/26/22 gabapentin 600 mg tablet 600 mg PO TID 30 days #90 tabs 06/26/22 lidocaine 4 % topical patch 1 patch transdermal DAILY #0 ea 06/26/22 (Lidocaine Pain Relief) oxcarbazepine 300 mg tablet 300 mg PO DAILY@1400 30 days #30 06/26/22 tabs oxcarbazepine 600 mg tablet 600 mg PO BID 30 days #60 tabs 06/26/22 pantoprazole 40 mg tablet,delayed 40 mg PO DAILY 30 days #30 tabs 06/26/22 release peg [id number] 1 1 drp ophthalmic (eye) BID PRN dry 06/26/22 %-0.2 %-0.2 % eye drops eyes 30 days #15 mL (Artificial Tears ([id number])) sertraline 100 mg tablet 200 mg PO DAILY 30 days #60 tabs 06/26/22 trazodone 50 mg tablet 50 mg PO BEDTIME PRN Insomnia 30 06/26/22 days #30 tabs Mental Status Exam Mental Status Exam Narrative: Pt is alert and oriented; behavior is cooperative, friendly and calm; patient is not in distress; dressed in casual attire with unkempt hair but adequate hygiene; mood is described as better...anxious though affect remains calm; eye contact appropriate; Speech is normal rate, volume and prosody and not pressured; no psychomotor agitation/retardation present; thought process is organized and goal directed; Thought content is on tx; otherwise pertinent to relevant topics and without any delusional content, paranoid ideations or grandiosity; denies any SI/HI. There is no evidence of perceptual disturbance. Patients insight and judgment appear intact. Data Data Completed and Pending Completed studies during hospitalization [Text1]: 06/19/22 06/19/22 06/19/22 23:11 23:51 23:51 WBC 10.3 RBC 4.81 Hgb 13.5 Hct 42.3 MCV 87.9 MCH 28.1 MCHC 31.9 RDW 13.7 Plt Count 259 MPV 9.4 Immature Gran % (Auto) 0.3 Neut % (Auto) 82.2 H Lymph % (Auto) 14.5 L [place] % (Auto) 2.8 Eos % (Auto) 0.0 Baso % (Auto) 0.2 Lymph # (Auto) 1.5 [place] # (Auto) 0.3 Eos # (Auto) 0.0 Baso # (Auto) 0.0 Abs Immat Gran (auto) 0.03 Absolute Neuts (auto) 8.4 H Absolute Nucleated RBC 0.000 Nucleated RBC % (auto) 0.0 Sodium 137 Potassium 4.6 Chloride 100 Carbon Dioxide 27 Anion Gap 15 BUN 22 H Creatinine 0.77 Estim Creat Clear Calc 172.6 Estimated GFR > 60 Random Glucose 95 Estimat Average Glucose Hemoglobin A1c % Calcium 9.1 Magnesium 2.0 Total Bilirubin 0.4 AST 16 ALT 12 Alkaline Phosphatase 53 Total Protein 7.7 Albumin 4.2 Triglycerides Cholesterol LDL Cholesterol, Calc HDL Cholesterol Vitamin B12 Folate TSH Free T4 Urine Color Urine Appearance Urine pH Ur Specific [place] Urine Protein Urine Glucose (UA) Urine Ketones Urine Blood Urine Nitrite Ur Leukocyte Esterase Urine RBC Urine WBC Ur Squamous Epith Cells Urine Bacteria Urine Mucus Urine Opiates Screen Urine Fentanyl Screen Ur Barbiturates Screen Ur Phencyclidine Scrn Ur Amphetamines Screen U Benzodiazepines Scrn Urine Cocaine Screen U Marijuana (THC) Screen Ethyl Alcohol < 10 COVID-19 (ARPIT) Negative COVID-19 Clin Com See Note 06/20/22 06/20/22 06/21/22 00:08 00:08 08:05 WBC RBC Hgb Hct MCV MCH MCHC RDW Plt Count MPV Immature Gran % (Auto) Neut % (Auto) Lymph % (Auto) [place] % (Auto) Eos % (Auto) Baso % (Auto) Lymph # (Auto) [place] # (Auto) Eos # (Auto) Baso # (Auto) Abs Immat Gran (auto) Absolute Neuts (auto) Absolute Nucleated RBC Nucleated RBC % (auto) Sodium Potassium Chloride Carbon Dioxide Anion Gap BUN Creatinine Estim Creat Clear Calc Estimated GFR Random Glucose Estimat Average Glucose 97 Hemoglobin A1c % 5.0 Calcium Magnesium Total Bilirubin AST ALT Alkaline Phosphatase Total Protein Albumin Triglycerides Cholesterol LDL Cholesterol, Calc HDL Cholesterol Vitamin B12 Folate TSH Free T4 Urine Color YELLOW Urine Appearance CLEAR Urine pH 6.0 Ur Specific [place] 1.020 Urine Protein NEG Urine Glucose (UA) NEG Urine Ketones NEG Urine Blood NEG Urine Nitrite NEG Ur Leukocyte Esterase TRACE H Urine RBC 0 Urine WBC 1-4 Ur Squamous Epith Cells 2+ Urine Bacteria 2+ Urine Mucus 2+ Urine Opiates Screen Not Detected Urine Fentanyl Screen Not Detected Ur Barbiturates Screen Not Detected Ur Phencyclidine Scrn Not Detected Ur Amphetamines Screen Not Detected U Benzodiazepines Scrn Not Detected Urine Cocaine Screen Not Detected U Marijuana (THC) Screen POSITIVE H Ethyl Alcohol COVID-19 (ARPIT) COVID-19 Clin Com 06/21/22 06/21/22 08:05 08:05 WBC RBC Hgb Hct MCV MCH MCHC RDW Plt Count MPV Immature Gran % (Auto) Neut % (Auto) Lymph % (Auto) [place] % (Auto) Eos % (Auto) Baso % (Auto) Lymph # (Auto) [place] # (Auto) Eos # (Auto) Baso # (Auto) Abs Immat Gran (auto) Absolute Neuts (auto) Absolute Nucleated RBC Nucleated RBC % (auto) Sodium Potassium Chloride Carbon Dioxide Anion Gap BUN Creatinine Estim Creat Clear Calc Estimated GFR Random Glucose Estimat Average Glucose Hemoglobin A1c % Calcium Magnesium 2.1 Total Bilirubin AST ALT Alkaline Phosphatase Total Protein Albumin Triglycerides 48 Cholesterol 169 LDL Cholesterol, Calc 107 HDL Cholesterol 53 Vitamin B12 544 Folate 12.8 TSH 0.65 Free T4 0.94 Urine Color Urine Appearance Urine pH Ur Specific [place] Urine Protein Urine Glucose (UA) Urine Ketones Urine Blood Urine Nitrite Ur Leukocyte Esterase Urine RBC Urine WBC Ur Squamous Epith Cells Urine Bacteria Urine Mucus Urine Opiates Screen Urine Fentanyl Screen Ur Barbiturates Screen Ur Phencyclidine Scrn Ur Amphetamines Screen U Benzodiazepines Scrn Urine Cocaine Screen U Marijuana (THC) Screen Ethyl Alcohol COVID-19 (ARPIT) COVID-19 Clin Com DS: Summary Hospital Course Hospital Course: Patient is a is 37 yo Czech speaking woman with history depression, anxiety, PTSD, currently with bills palsy affecting left side of face who presents for anxiety and depression, feeling overwhelmed by psychosocial stressors and recently acquiring Castanon's palsy and assisting her autistic son. Dx with adjustment disorder. On admission, patient was pleasant and cooperative but depressed. No SI. She reported that for the most part her medications have been helpful. She agrees however that some augmentation is needed and agrees to BuSpar her own which was titrated to good effect. Over subsequent days Patient reported feeling better, mood better and much less anxious; she even said that despite the loud while this on the unit, she was able to remain calm and and good emotional control. Patient was invested in treatment, going to groups, forthcoming in 1 on 1 sessions; she was appropriate with peers and staff. Patient had trouble sleeping and her amitriptyline was increased since this can also help with anxiety and mood. Patient was ready for discharge. She had some anxiety returning home as psychosocial problems remain, however she felt capable and confident she could continue treatment as an outpatient. Patient has good support from her mother with whom she lives and helps take care of the kids. 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 Patient was not in imminent risk for harm to self or others and appropriate to continue treatment in the community. Status at Discharge Functional status at discharge: independent ambulation Overall status at discharge: patient is back to baseline Time Spent with Patient Time attestation: Total time spent providing and/or coordinating discharge services: Time spent: Less than 30 minutes Discharge Plan Discharge Patient Disposition: Home, Self-Care Discharge Diagnosis: MDD, recurrent, moderate in full remission; adjustment disorder with disturbance of emotions, in full remission Referrals: Psiquiatr?a: Sara Isidro [Other] - 07/12/22 9:00 am (Esta es hima rossy de telesalud) CHAY GALLOWAY [Other] - 07/05/22 3:00 pm Scot Watkins MD [Physician] - 07/19/22 11:30 am Ryley Jensen MD [Physician] - 08/09/22 12:45 pm Physician,Unknown J [Primary Care Provider] - 1 Week Discharge Medications: New amitriptyline 25 mg tablet 25 mg PO BEDTIME 30 Days Qty: 30 0RF Rx Instructions: take with 100mg tab buspirone 10 mg Tablet 10 mg PO TID 30 Days Qty: 110 0RF Rx Instructions: may take 1 tab daily prn for anxiety trazodone 50 mg Tablet 50 mg PO BEDTIME PRN (Reason: Insomnia) 30 Days Qty: 30 0RF lidocaine [Lidocaine Pain Relief] 4 % Adhesive Patch,Medicated 1 patch transdermal DAILY Qty: 0 0RF Protocol: Apply to: Apply to: back Continued multivitamin Tablet 1 tab PO DAILY Artificial Tears([id number]) 1-0.2-0.2 % drops 1 drp ophthalmic (eye) BID PRN (Reason: dry eyes) 30 Days Qty: 15 0RF Changed gabapentin 600 mg tablet 600 mg PO TID 30 Days Qty: 90 0RF sertraline 100 mg tablet 200 mg PO DAILY 30 Days Qty: 60 0RF oxcarbazepine 300 mg tablet 300 mg PO DAILY@1400 30 Days Qty: 30 0RF pantoprazole 40 mg tablet,delayed release (DR/EC) 40 mg PO DAILY 30 Days Qty: 30 0RF oxcarbazepine 600 mg tablet 600 mg PO BID 30 Days Qty: 60 0RF amitriptyline 100 mg tablet 100 mg PO BEDTIME 30 Days Qty: 30 0RF Rx Instructions: take w/ 25mg tab Discontinued prednisone 20 mg tablet 2 tab PO DAILY Rx Instructions: X 4 DAYS Discharge Orders: Discharge Order (Routine); Ordered 06/26/22 Ordered By: Christian Guerra Diet: Regular diet Activity on Discharge: As tolerated Stand Alone Forms: Patient Portal Discharge page, Community Support Care Plan Goals: Maintain mood and safe behaviors Take medications as prescribed Continue to pursue sobriety Practice coping skills Continue with outpatient providers and reach out to them as needed Health Concerns: Mood stability and behaviors Castanon's Palsy Hx of reported hypotension/bradycardia Plan of Treatment: Follow up with your PCP, psychiatric provider and other outpatient providers regarding above concerns Take medications as prescribed Assessment: Risk assessment at time of discharge:? Patient was interviewed prior to discharge and found to be fully oriented and without any SI or HI. Patient has insight and demonstrates good judgment in terms of wanting to pursue treatment. Patient is not in imminent risk of harm to self or others and has a safety plan that includes presenting to the closest ER or calling 911 if feeling unsafe.? Patient has been observed closely by nursing and unit staff throughout admission; patient has not engaged in any behaviors that suggest dangerousness to self or others and has demonstrated appropriate behaviors and impulse control Discharge Date/Time: 06/26/22 14:16
== END 2022-06-26 14:16 | disposition home or self-care (01) | DRG 751 ==
LOC: HO.ED 06-20 16:22 → HO.PM5 06-20 17:21
PROVIDERS: Physician Assistant; Registered Nurse; Admitting Provider Psychiatry & Neurology Psychiatry; Emergency Provider Internal Medicine; Visit Provider Psychiatry & Neurology Psychiatry
DX: F33.1 Major depressive disorder, recurrent, moderate (principal); F43.12 Post-traumatic stress disorder, chronic; F43.23 Adjustment disorder with mixed anxiety and depressed mood; G51.0 Bell's palsy; Z20.822 Contact with and (suspected) exposure to COVID-19; Z88.5 Allergy status to narcotic agent; Z79.899 Other long term (current) drug therapy
CPT/HCPCS: 36415; 80053; 80061; 80307; 81001; 82077; 82607; 82746; 83036; 83735; 84439; 84443; 85025; 87635; 93005; 99285

== ENCOUNTER 2022-07-19 12:21 | Outpatient (REF) | payer OTHER, SELFPAY ==
[2022-07-20 17:21] LABS: Lyme Abs Screen <0.90 index
== END 2022-07-19 12:22 | disposition home or self-care (01) ==
LOC: HO.LAB 12:21
PROVIDERS: Visit Provider Psychiatry & Neurology Neurology
DX: G51.0 Bell's palsy (principal)
CPT/HCPCS: 36415; 86617; 86618

== ENCOUNTER → 2022-08-09 12:38 | Outpatient (BNVA) | payer OTHER, SELFPAY | PROVIDERS: Visit Provider Internal Medicine | DX: I95.9 Hypotension, unspecified (principal); R07.89 Other chest pain; E66.01 Morbid (severe) obesity due to excess calories | CPT/HCPCS: 93005; 99202 ==

== ENCOUNTER → 2022-08-11 13:37 | Outpatient (REF) | payer OTHER, SELFPAY ==
--- NOTE | 2022-08-11 13:42 | CA_ITS ---
Transthoracic Echocardiogram Patient (Last, First, Middle): Alex Shin, Gender: Female Date of : 1985 Age: 37 Procedure Date: 08/11/2022 Procedure Type: Transthoracic Echocardiogram Location: OP Height: 170.18 cm Weight: 180.08 kg BSA: 2.71 m2 Heart Rate: 55 bpm BP: 110 / 64 mmHg It Service Continuity Supervisor: SB Referring MD: Ryley Jensen MD Symptoms: I95.9 - Hypotension, unspecified Study Quality: Adequate w contrast ECG Rhythm: Bradycardia Conclusions: - Normal left ventricular size, thickness, systolic function, and wall motion. The visually estimated ejection fraction is between 55-60%. Diastolic function is normal for age. - Mildly elevated right atrial pressure. - Normal right ventricular cavity size and systolic function. Findings Procedure Information Contrast agent, definity, is being given per protocol without apparent complications. Left Ventricle Normal left ventricular size, thickness, systolic function, and wall motion. The visually estimated ejection fraction is between 55-60%. Diastolic function is normal for age. Right Ventricle Normal right ventricular cavity size and systolic function. Atria Both atria are normal in size. There is no evidence of interatrial shunt by color Doppler. Aortic Valve Normal aortic valve structure and function. There is no aortic valve stenosis. There is no aortic valve regurgitation. Mitral Valve Normal mitral valve structure and function. There is no mitral valve regurgitation. There is no mitral valve stenosis. Pulmonic Valve Normal pulmonic valve structure and function. There is no pulmonic valve regurgitation. Tricuspid Valve Normal tricuspid valve structure and function. There is trace tricuspid valve regurgitation. Tricuspid regurgitation envelope is inadequate for calculation of right ventricular systolic pressure. Mildly elevated right atrial pressure. Great Vessels All visible segments of the aorta are normal in size. The visualized portions of the pulmonary artery and branches are normal. Venous The inferior vena cava is dilated and collapses greater than 50% with inspiration. Pericardium/Pleural There is no evidence of pericardial effusion. Prior Study Comparison No prior study available for comparison. Measurements 2D Linear Measurements IVSd: 0.77 0.6-0.9/0.6-1.0 cm LVIDd: 5.22 3.9-5.3/4.2-5.9 cm LVIDd Index: 1.93 2.4-3.2/2.2-3.1 cm/m2 LVIDs: 3.32 2.0-3.6 cm LVPWd: 0.64 0.7-1.1 cm LA Diam: 3.60 2.7-3.8/3.0-4.0 cm LAIDs Index: 1.33 1.5-2.3 cm/m2 LV Mass: 154.89 67-162/88-224 g LV Mass Index: 57.16 43-95/49-115 g/m2 LVOT Diam: 2.10 3.0+(-)1.3 cm 2D Systolic Function EF 4C: 56.70 >55% EF 2C: 60.30 >55% EF BiP: 60.60 >55% Mitral Valve MV Pk E: 0.96 MV PK A: 0.48 MV Decel Time: 195.00 E/A: 2.00 E'Lateral: 15.00 E'Medial: 9.14 E/E' Med: 10.50 E/E' Lat: 6.40 PHT: 57.00 MVA PHT: 3.86 Decel [place]: 4.93 Aortic Valve AoV Pk Rc: 1.21 AoV Mn Rc: 0.78 AoV VTI: 0.26 AoV Pk Grad: 6.00 Aov Mn Grad: 3.00 PEGGY Cont.VTI: 3.05 LVOT LVOT Pk Rc: 1.04 LVOT Mn Rc: 0.67 LVOT VTI: 0.23 LVOT Pk Grad: 4.00 LVOT Mn Grad: 2.00 LVOT Diam: 2.10 LVOT Area: 3.46 Diastolic Function MV Pk E: 0.96 MV Pk A: 0.48 E/A: 2.00 E'Medial: 9.14 E/E' Med: 10.50 E' Laterial: 15.00 E/E' Lat: 6.40 Right Ventricle TAPSE (mm): 23.80 TVS' Rc: 12.90 Tricuspid Valve RA Press: 3.00 Great Vessels Aorta Sinus of Valsalva: 2.70 2.0-3.5 cm Ao Asc: 2.90 2.1-3.4 cm Pulmonary Veins Pulm Vein S/D 0.90 Pulmonary Valve PV Pk Rc: 0.88 Peak PV Grad: 3.00 Updated in Other Vendor System with Status of Final Jean Marie Do MD electronically signed on 08/13/2022 1:08:27 PM with status of Final
== END ==
LOC: HO.CARD 13:37
PROVIDERS: Visit Provider Internal Medicine
DX: I10 Essential (primary) hypertension (principal)
CPT/HCPCS: 93306; Q9957

== ENCOUNTER 2023-08-03 01:41 | Emergency (ER) | payer OTHER, SELFPAY ==
[2023-08-03 01:44] VITALS: BP 115/57; PULSE 66; RESP 16; TEMP 36.9; O2SAT 98; BMI 50.4
[2023-08-03 02:10] LABS: MANUAL DIFF FLAG NO
[2023-08-03 02:15] LABS: Basophils Percent Auto 0.2 % (0-2); Eosinophils Percent Auto 0.1 % (0-4); Hematocrit 38.2 % (37.0-47.0); Hemoglobin 12.6 g/dl (12.0-16.0); Imm Gran Abs Auto 0.04 X10*3/uL (0.00-0.03); Imm Gran Pct Auto 0.3 % (0.0-0.4); Lymphocytes Absolute Auto 2.3 X10*3/uL (1.2-4.9); Lymphocytes Percent Auto 19.2 % (20-40); Mean Corpuscular Hemoglobin 29.6 pg (27.0-33.0); Mean Corpuscular Volume 89.7 fL (80.0-98.0); Mean Platelet Volume 9.7 fL (9.4-12.3); Monocytes Absolute Auto 0.6 X10*3/uL (0.1-1.2); Monocytes Percent Auto 4.9 % (2-11); Neutrophils Absolute Auto 8.9 x10*3/uL (2.0-8.3); Neutrophils Percent Auto 75.3 % (45-73); Platelet Count 286 X10*3/uL (160-400); Red Blood Count 4.26 X10*6/uL (4.20-5.50); Red Cell Distribution Width 13.9 % (11.0-16.0); White Blood Count 11.8 X10*3/uL (4.8-10.8)
[2023-08-03 02:16] LABS: Appearance Urine Clear; Color Urine Yellow; Glucose Urine UA Negative (Negative); Leukocyte Esterase Urine Negative (Negative); Nitrite Urine Negative (Negative); PH 5.5 (5.0-9.0); Specific Gravity - Urine >= 1.030 (1.005-1.025); Urine Blood Negative (Negative); Urine Ketones Negative (Negative); Urine Protein Negative (Neg-Trace)
[2023-08-03 02:17] LABS: UPreg QC Valid YES; Urine Pregnancy NEGATIVE (NEGATIVE)
[2023-08-03 02:29] LABS: Anion Gap 10 (12-20); Blood Urea Nitrogen 16 mg/dL (9-16); Calcium 9.1 mg/dL (8.4-10.2); Carbon Dioxide 24 mmol/L (22-29); Chloride 111 mmol/L (96-108); Creatinine Clr Calc Pharmacy 163.3; Estimated Glomerular Filt Rate > 60; Glucose Random 119 mg/dL (60-115); Potassium 3.6 mmol/L (3.3-5.1); Sodium 141 mmol/L (135-145)
[2023-08-03 02:52] LABS: Influenza A PCR NEGATIVE (Negative); Influenza B PCR NEGATIVE (Negative); Resp Syncy Virus RNA Qual PCR NEGATIVE (Negative); SARS COV2 PCR INHOUSE NEGATIVE (Negative)
[2023-08-03 06:33] VITALS: BP 112/63; PULSE 55; TEMP 36.9; O2SAT 97
--- NOTE | 2023-08-03 07:13 | ED_ITS ---
HPI - General Adult General Chief complaint: General Medical Stated complaint: Flu Like Symptoms Time Seen by Provider: 08/03/23 07:13 Source: patient and RN notes reviewed Mode of arrival: ambulatory Limitations: no limitations History of Present Illness HPI narrative: This is a 38-year-old female, with a past medical history of depression, anxiety, fibromyalgia, presenting to the emergency department with complaints of nausea, vomiting, diarrhea. Patient states that on Sunday she developed nausea and vomiting. She states that yesterday she developed diarrhea. She states that on Sunday she ever stress and woke up the next day with her symptoms. She states that she has had some chills, and subjective fevers. Denies any chest pain, shortness of breath, nasal congestion, shortness of breath, bloody or black stool. Denies any other sick contacts. She has been taking Imodium for her symptoms which has provided her without any relief.No other complaints or concerns at this time. MD complaint: Diarrhea, nausea, vomiting Onset (ago): day(s) Radiation: non-radiation Severity: moderate Pain Consistency: constant Relieving factors: none Exacerbating factors: none Associated symptoms: denies other symptoms Treatments prior to arrival: none Related Data Home Medications Medication Instructions Recorded Confirmed multivitamin 1 tab PO DAILY 06/19/22 08/09/22 Previous Rx's Medication Instructions Recorded amitriptyline 100 mg tablet 100 mg PO BEDTIME 30 days #30 tabs 06/26/22 amitriptyline 25 mg tablet 25 mg PO BEDTIME 30 days #30 tabs 06/26/22 buspirone 10 mg tablet 10 mg PO TID 30 days #110 tabs 06/26/22 gabapentin 600 mg tablet 600 mg PO TID 30 days #90 tabs 06/26/22 lidocaine 4 % topical patch 1 patch transdermal DAILY #0 ea 06/26/22 (Lidocaine Pain Relief) oxcarbazepine 300 mg tablet 300 mg PO DAILY@1400 30 days #30 06/26/22 tabs oxcarbazepine 600 mg tablet 600 mg PO BID 30 days #60 tabs 06/26/22 pantoprazole 40 mg tablet,delayed 40 mg PO DAILY 30 days #30 tabs 06/26/22 release peg [id number] 1 1 drp ophthalmic (eye) BID PRN dry 06/26/22 %-0.2 %-0.2 % eye drops eyes 30 days #15 mL (Artificial Tears ([id number])) sertraline 100 mg tablet 200 mg (2 x 100 mg) PO DAILY 30 06/26/22 days #60 tabs trazodone 50 mg tablet 50 mg PO BEDTIME PRN Insomnia 30 06/26/22 days #30 tabs ondansetron 4 mg disintegrating 4 mg PO Q6-8H PRN nausea and 08/03/23 tablet vomiting #14 tabs Allergies Allergy/AdvReac Type Severity Reaction Status Date / Time morphine Allergy Intermediate Unknown Verified 08/09/22 12:46 Review of Systems 2 Review of Systems: Yes all other systems are reviewed and are negative Constitutional: Constitutional: Reports as per [facility] Past Medical History Medical History (Updated 08/04/23 @ 00:01 by Sylwia Kitchen) Chronic post-traumatic stress disorder (PTSD) MDD (major depressive disorder), recurrent episode, 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 Mother Pacemaker Hypertension Brother Hypertension Social History Social History Household Members: Children Housing: Apartment Do you presently have visiting nurse or other home services: No Patient Tobacco Use Status: Never used Tobacco e-Cigarette/Vaping Use: Never Used Substance Use Type: Marijuana Advance Directives: No Advance Directives Information Provided: No service: No Sexual orientation: Straight/Heterosexual Physical Exam ED Vital Signs: Vital Signs - 24 hr 08/03/23 01:44 08/03/23 06:33 Temperature 98.4 F 98.4 F Pulse Rate 66 55 Respiratory Rate 16 Blood Pressure 115/57 L 112/63 Pulse Oximetry 98 97 Oxygen Delivery Method Room Air Room Air BMI result Body Mass Index 50.4 Const General: cooperative, comfortable and no acute distress Orientation/consciousness: patient oriented x3 Limitations: no limitations HENMT Head: Yes normal to inspection, Yes normocephalic and Yes atraumatic Ears: hearing grossly normal bilaterally General nose exam: Normal external nose present Face and sinus: Yes normal facial exam Mouth: Normal oral and palatal mucosa present, oropharynx normal and moist mucous membranes Throat: Yes posterior oropharynx normal Eyes General: appearance normal, both eyes and all related structures Eyelids: Yes eyelids normal Conjunctivae: conjunctivae normal Sclerae: sclerae normal Pupils: Equal, round and reactive pupils present EOM: EOMs intact bilaterally Neck Neck: Yes normal visual inspection, Yes full ROM and Yes no lymphadenopathy Lymphatic: no lymphadenopathy noted Chest Chest palpation & inspection: normal inspection of the chest Resp Effort & Inspection: normal respiratory effort and able to speak in complete sentences Auscultation: clear to auscultation bilaterally, no crackles, no rales, no rhonchi and no wheezes Cardio Rate: regular rate Rhythm: regular rhythm Heart sounds: S1 normal heart sound present and S2 normal heart sound present GI Other: abdomen is soft, nontender, nondistended. normoactive bowel sounds present in all 4 quadrants. Inspection: Yes normal to inspection Skin General skin exam: no rashes or lesions noted Trauma: no lacerations or abrasions Wounds: no wounds Neuro General: patient oriented x3 and moves all extremities Cranial nerves: Yes Equal, round and reactive pupils present Extrem General: Yes normal to inspection Right upper extremity: normal to inspection Left upper extremity: normal to inspection Right lower extremity: normal to inspection Left lower extremity: normal to inspection Course Reevaluation(s) Reevaluation #1: patient just given IV fluids and Zofran. will re-evaluate Time: 10:22 Reevaluation #2: Pt feeling much better after IV fluids and zofran. Pt able to tolerate PO. Given return precautions. Pt stable for d/c. Medications Administered Discontinued Medications Generic Name Dose Route Start Last Admin Trade Name Freq PRN Reason Stop Dose Admin Sodium Chloride 1,000 mls @ 999 mls/hr 08/03/23 07:30 08/03/23 10:09 Ns IV 08/03/23 08:30 999 mls/hr .Q1H1M ONE Administration Ondansetron HCl 4 mg 08/03/23 07:30 08/03/23 10:13 Ondansetron Hcl 4 Mg/2 Ml Vial IVPUSH 08/03/23 07:31 4 mg ONCE ONE Administration Medical Decision Making Medical Decision Making MDM Narrative: This is a 38-year-old female presenting to the emergency department with complaints of subjective fevers, chills, nausea, vomiting, diarrhea x 6 days. On arrival, vital signs within normal limits. Labs were previously ordered, mild leukocytosis at 11.8k, chemistry within normal limits, mildly hyperglycemic at 119. Specific gravity greater than 1.030. patient tested negative for flu, RSV, COVID. Given patient's symptoms have been for 6 days, will medicate with 1 L of IV fluids and Zofran. Will p.o. challenge after medication. Differential Diagnosis Differential Diagnoses: The differential diagnosis associated with the presentation includes gastroenteritis, gastritis, infectious diarrhea, C diff-unlikely Admission/Observation Consideration of admission/observation: Escalation of care including admission/observation considered Lab Data [facility] Lab Attestation statement: I reviewed the patient's lab results. See [facility] 08/03/23 02:05 08/03/23 02:05 Labs: Lab Results 08/03/23 Range/Units 02:05 WBC 11.8 H (4.8-10.8) X10*3/uL RBC 4.26 (4.20-5.50) X10*6/uL Hgb 12.6 (12.0-16.0) g/dl Hct 38.2 (37.0-47.0) % MCV 89.7 (80.0-98.0) fL MCH 29.6 (27.0-33.0) pg MCHC 33.0 (31.0-35.0) g/dl RDW 13.9 (11.0-16.0) % Plt Count 286 (160-400) X10*3/uL MPV 9.7 (9.4-12.3) fL Immature Gran % (Auto) 0.3 (0.0-0.4) % Neut % (Auto) 75.3 H (45-73) % Lymph % (Auto) 19.2 L (20-40) % [place] % (Auto) 4.9 (2-11) % Eos % (Auto) 0.1 (0-4) % Baso % (Auto) 0.2 (0-2) % Lymph # (Auto) 2.3 (1.2-4.9) X10*3/uL [place] # (Auto) 0.6 (0.1-1.2) X10*3/uL Eos # (Auto) 0.0 (0.0-0.4) X10*3/uL Baso # (Auto) 0.0 (0.0-0.2) X10*3/uL Abs Immat Gran (auto) 0.04 H (0.00-0.03) X10*3/uL Absolute Neuts (auto) 8.9 H (2.0-8.3) x10*3/uL Absolute Nucleated RBC 0.000 (0.0-0.012) X10*3/uL Nucleated RBC % (auto) 0.0 (0.0-0.2) /100WBC Sodium 141 (135-145) mmol/L Potassium 3.6 D (3.3-5.1) mmol/L Chloride 111 H (96-108) mmol/L Carbon Dioxide 24 (22-29) mmol/L Anion Gap 10 L (12-20) BUN 16 (9-16) mg/dL Creatinine 0.71 (0.5-1.4) mg/dL Estim Creat Clear Calc 163.3 Estimated GFR > 60 Random Glucose 119 H (60-115) mg/dL Calcium 9.1 (8.4-10.2) mg/dL Urine Color Yellow Urine Appearance Clear Urine pH 5.5 (5.0-9.0) Ur Specific [place] >= 1.030 H (1.005-1.025) Urine Protein Negative (Neg-Trace) mg/dL Urine Glucose (UA) Negative (Negative) mg/dL Urine Ketones Negative (Negative) mg/dL Urine Blood Negative (Negative) Urine Nitrite Negative (Negative) Ur Leukocyte Esterase Negative (Negative) Urine Test NEGATIVE (NEGATIVE) Influenza Type A (PCR) NEGATIVE (Negative) Influenza Type B (PCR) NEGATIVE (Negative) RSV RNA Qual (PCR) NEGATIVE (Negative) SARS-CoV-2 RNA (RT-PCR) NEGATIVE (Negative) Discharge Plan Discharge Clinical Impression: Gastroenteritis Patient Disposition: Home, Self-Care Instructions: Gastroenteritis (ED), Acute Nausea and Vomiting (ED), Acute Diarrhea (ED) Additional Instructions: You likely have a virus that is causing you to have nausea and diarrhea. Stick to a bland diet, a diet with rice, bread, toes, bananas, you can help with your symptoms. Avoid dairy and spicy foods. Drink plenty of fluids get plenty of rest. Take prescribed Zofran as needed for nausea. If your symptoms continue, you may follow-up with the GI specialist. Call to make an appointment. If any new or worsening symptoms occur, please return for re-evaluation. Prescriptions: New ondansetron 4 mg tablet,disintegrating 4 mg PO Q6-8H PRN (Reason: nausea and vomiting) Qty: 14 0RF No Action multivitamin Tablet 1 tab PO DAILY amitriptyline 25 mg tablet 25 mg PO BEDTIME 30 Days Qty: 30 0RF Rx Instructions: take with 100mg tab buspirone 10 mg Tablet 10 mg PO TID 30 Days Qty: 110 0RF Rx Instructions: may take 1 tab daily prn for anxiety trazodone 50 mg Tablet 50 mg PO BEDTIME PRN (Reason: Insomnia) 30 Days Qty: 30 0RF lidocaine [Lidocaine Pain Relief] 4 % Adhesive Patch,Medicated 1 patch transdermal DAILY Qty: 0 0RF Protocol: Apply to: Apply to: back gabapentin 600 mg tablet 600 mg PO TID 30 Days Qty: 90 0RF sertraline 100 mg tablet 200 mg PO DAILY 30 Days Qty: 60 0RF oxcarbazepine 300 mg tablet 300 mg PO DAILY@1400 30 Days Qty: 30 0RF pantoprazole 40 mg tablet,delayed release (DR/EC) 40 mg PO DAILY 30 Days Qty: 30 0RF oxcarbazepine 600 mg tablet 600 mg PO BID 30 Days Qty: 60 0RF amitriptyline 100 mg tablet 100 mg PO BEDTIME 30 Days Qty: 30 0RF Rx Instructions: take w/ 25mg tab Artificial Tears([id number]) 1-0.2-0.2 % drops 1 drp ophthalmic (eye) BID PRN (Reason: dry eyes) 30 Days Qty: 15 0RF Referrals: [facility] [place] Gastroenterology Services [Provider Group] Interventions: ED Discharge Assessment Last Done: 08/03/23 12:14 Discharge Date/Time: 08/03/23 12:16
[2023-08-03] MEDS: 0.9 % Sodium Chloride 1,000 ML 999 ML IV (10:09)
[2023-08-03] MEDS: ondansetron HCL 4 MG/2 ML VIAL IVPUSH (10:13)
== END 2023-08-03 12:16 | disposition home or self-care (01) ==
PROVIDERS: Physician Assistant Medical; Emergency Provider Emergency Medicine Emergency Medical Services
DX: K52.9 Noninfective gastroenteritis and colitis, unspecified (principal); R11.2 Nausea with vomiting, unspecified; Z20.822 Contact with and (suspected) exposure to COVID-19; Z20.828 Contact with and (suspected) exposure to other viral communicable diseases; Z79.899 Other long term (current) drug therapy
CPT/HCPCS: 0241U; 36415; 80048; 81003; 81025; 85025; 87177; 87209; 96372; 99283; 99284; J2405

== ENCOUNTER 2024-01-17 16:31 | Emergency (ER) | payer OTHER, SELFPAY ==
--- NOTE | 2024-01-17 16:54 | ED.GENADULT ---
HPI - General Adult General Chief complaint: Nausea/Vomiting/Diarrhea Stated complaint: vomiting,body aches Time Seen by Provider: 01/17/24 21:55 Source: patient Mode of arrival: ambulatory Limitations: no limitations History of Present Illness HPI narrative: 38-year-old female came in for evaluation of nausea, vomiting, and diarrhea with abdominal pain for 4 days, started with severe vomiting and diarrhea patient was not able to keep any food or fluids down, today patient started to feel better able to tolerate fluid intake with just mild nausea but no vomiting today, nonbloody watery diarrhea still persists, with improvement of abdominal pain. Patient had bariatric surgery in 2019. Patient was seen at [facility] last week for insomnia. Related Data Home Medications Medication Instructions Recorded Confirmed multivitamin 1 tab PO DAILY 06/19/22 08/09/22 Previous Rx's Medication Instructions Recorded amitriptyline 100 mg tablet 100 mg PO BEDTIME 30 days #30 tabs 06/26/22 amitriptyline 25 mg tablet 25 mg PO BEDTIME 30 days #30 tabs 06/26/22 buspirone 10 mg tablet 10 mg PO TID 30 days #110 tabs 06/26/22 gabapentin 600 mg tablet 600 mg PO TID 30 days #90 tabs 06/26/22 lidocaine 4 % topical patch 1 patch transdermal DAILY #0 ea 06/26/22 (Lidocaine Pain Relief) oxcarbazepine 300 mg tablet 300 mg PO DAILY@1400 30 days #30 06/26/22 tabs oxcarbazepine 600 mg tablet 600 mg PO BID 30 days #60 tabs 06/26/22 pantoprazole 40 mg tablet,delayed 40 mg PO DAILY 30 days #30 tabs 06/26/22 release peg [id number] 1 1 drp ophthalmic (eye) BID PRN dry 06/26/22 %-0.2 %-0.2 % eye drops eyes 30 days #15 mL (Artificial Tears ([id number])) sertraline 100 mg tablet 200 mg (2 x 100 mg) PO DAILY 30 06/26/22 days #60 tabs trazodone 50 mg tablet 50 mg PO BEDTIME PRN Insomnia 30 06/26/22 days #30 tabs ondansetron 4 mg disintegrating 4 mg PO Q6-8H PRN nausea and 08/03/23 tablet vomiting #14 tabs Allergies Allergy/AdvReac Type Severity Reaction Status Date / Time morphine Allergy Intermediate Unknown Verified 08/09/22 12:46 Review of Systems Review of Systems: All other systems are reviewed and are negative Constitutional: Reports as per HPI and Reports no additional constitutional complaints Eyes: Reports as per HPI and Reports no additional eye complaints Reports system reviewed and no additional complaints, except as documented Cardiovascular: Reports as per HPI and Reports no additional cardiovascular complaints Respiratory: Reports as per HPI and Reports no additional respiratory complaints Gastrointestinal: Reports as per HPI and Reports no additional gastrointestinal complaints Genitourinary: Reports no additional female genitourinary complaints Musculoskeletal: Reports no additional musculoskeletal complaints Skin/Breast: Reports system reviewed and no additional complaints, except as docu Psychiatric: Reports no additional psychiatric complaints Endocrine: Reports no additional endocrine complaints Hematologic/Lymphatic: Reports no additional hematologic/lymphatic complaints Allergic/Immunologic: Reports no additional allergic/immunologic complaints Reports system reviewed and no additional complaints, except as documented and Reports Abnormal speech present [facility] Past Medical History Medical History Chronic post-traumatic stress disorder (PTSD) MDD (major depressive disorder), recurrent episode, moderate Castanon's palsy Adjustment disorder with mixed anxiety and depressed mood Surgical History History of foot surgery History of bariatric surgery Family History Family History Father No problems noted. Mother Pacemaker Hypertension Brother Hypertension Social History Social History Household Members: Children Housing: Apartment Do you presently have visiting nurse or other home services: No Patient Tobacco Use Status: Never used Tobacco Smoked in Last 30 Days: No e-Cigarette/Vaping Use: Never Used Use of substances other than those prescribed or required for medical reasons: No Substance Use Type: Marijuana Advance Directives: No Advance Directives Information Provided: No Patient : No service: No Sexual orientation: Straight/Heterosexual Physical Exam ED Vital Signs: Vital Signs - 24 hr 01/17/24 17:03 01/17/24 21:16 01/17/24 22:10 Temperature 97.5 F 98.5 F Pulse Rate 50 60 50 Respiratory Rate 18 18 14 Blood Pressure 131/66 131/59 L 114/61 Pulse Oximetry 100 100 100 Oxygen Delivery Method Room Air Room Air Room Air BMI result Body Mass Index 44.9 Vital signs have been reviewed and appear to be correct. Blood pressure elevated. Heart rate normal. Respiratory rate normal. Temperature normal. Oxygen saturation normal. Appearance: Alert. Oriented X3. No acute distress. Head: Normal external exam. Normocephalic. Atraumatic. No Mckinnon signs noted. No raccoon eyes noted Eyes: PERRLA. EOMI. Conjunctiva and sclera normal. Eyelids normal. ENT: TM's Normal. Pharynx normal. Uvula midline. Moist mucous membranes. No trismus noted. No drooling noted. No muffled voice noted. Neck: Normal inspection. Neck supple. FROM. No adenopathy. Thyroid Normal. No meningeal signs. No neck mass noted. CVS: Normal heart rate and rhythm. Heart sound normal. No murmurs noted. Pulses normal throughout. Respiratory: No respiratory distress. Painless inspiration. Breath sounds normal. No wheezes/rales/rhonchi noted. Chest nontender. No accessory muscle usage noted or decreased air movement noted. Abdomen: Obese, Soft, nontender, no guarding, no rebound tenderness. Bowel sounds normal in all 4 quadrants. No distention noted. No organomegaly noted. No visible injury noted. Back: No CVA tenderness. Full range of motion noted. Skin: Skin warm and dry. Normal skin color. Normal skin turgor. No rashes/lesions/lacerations noted. Extremities: No lower extremity edema. Extremities exhibit normal range of motion. Extremities nontender. Neuro: Oriented X 3. Cranial nerve exam: II-XII are grossly intact No motor deficit. No sensory deficit. Reflexes normal. Course Course Course Narrative: This is a rapid medical exam: Additional HPI, ROS, PE not included below will be deferred to primary provider. Patient is a 38-year-old female with history of bariatric surgery, PTSD, MDD presenting to the ED with complaint of vomiting, diarrhea body aches since Sunday. States Sunday she felt chills, then symptoms worsened on Sunday. Yesterday had palpitations. Plan: viral swabs, EKG, labs Reevaluation(s) Reevaluation #1: Gastroenteritis, mild dehydration patient received IV hydration in the ED feels better, no nausea, no vomiting. Unremarkable labs, will discharge to follow-up with PCP. Time: 23:10 Medications Administered Discontinued Medications Generic Name Dose Route Start Last Admin Trade Name Fred PRN Reason Stop Dose Admin Famotidine 20 mg 01/17/24 22:02 01/17/24 22:30 Famotidine/Pf 20 Mg/2 Ml Vial IVPUSH 01/17/24 22:03 20 mg ONCE ONE Administration Sodium Chloride 1,000 mls @ 999 mls/hr 01/17/24 22:02 01/17/24 22:30 Ns IV 01/17/24 23:02 999 mls/hr .Q1H1M ONE Administration Ondansetron HCl 4 mg 01/17/24 22:02 01/17/24 22:31 Ondansetron Hcl 4 Mg/2 Ml Vial IVPUSH 01/17/24 22:03 4 mg ONCE ONE Administration Medical Decision Making Differential Diagnosis Differential Diagnoses: The differential diagnosis associated with the presentation includes (Food poisoning, gastroenteritis, dehydration electrolyte derangement anemia, acute cholecystitis transaminitis, pancreatitis, .) Admission/Observation Consideration of admission/observation: Escalation of care including admission/observation considered Lab Data MDM Lab Attestation statement: I reviewed the patient's lab results. 01/17/24 18:02 01/17/24 18:02 Labs: Lab Results 01/17/24 Range/Units 18:02 WBC 9.4 (4.8-10.8) X10*3/uL RBC 4.33 (4.20-5.50) X10*6/uL Hgb 12.8 (12.0-16.0) g/dl Hct 38.4 (37.0-47.0) % MCV 88.7 (80.0-98.0) fL MCH 29.6 (27.0-33.0) pg MCHC 33.3 (31.0-35.0) g/dl RDW 13.1 (11.0-16.0) % Plt Count 265 (160-400) X10*3/uL MPV 9.8 (9.4-12.3) fL Immature Gran % (Auto) 0.1 (0.0-0.4) % Neut % (Auto) 70.0 (45-73) % Lymph % (Auto) 23.8 (20-40) % [place] % (Auto) 5.7 (2-11) % Eos % (Auto) 0.1 (0-4) % Baso % (Auto) 0.3 (0-2) % Lymph # (Auto) 2.2 (1.2-4.9) X10*3/uL [place] # (Auto) 0.5 (0.1-1.2) X10*3/uL Eos # (Auto) 0.0 (0.0-0.4) X10*3/uL Baso # (Auto) 0.0 (0.0-0.2) X10*3/uL Abs Immat Gran (auto) 0.01 (0.00-0.03) X10*3/uL Absolute Neuts (auto) 6.6 (2.0-8.3) x10*3/uL Absolute Nucleated RBC 0.000 (0.0-0.012) X10*3/uL Nucleated RBC % (auto) 0.0 (0.0-0.2) /100WBC Sodium 140 (135-145) mmol/L Potassium 3.8 (3.3-5.1) mmol/L Chloride 107 (96-108) mmol/L Carbon Dioxide 27 (22-29) mmol/L Anion Gap 10 L (12-20) BUN 15 (9-16) mg/dL Creatinine 0.67 (0.5-1.4) mg/dL Estim Creat Clear Calc 161.5 Estimated GFR > 60 Random Glucose 93 (60-115) mg/dL Calcium 9.1 (8.4-10.2) mg/dL Magnesium 2.1 (1.6-2.6) mg/dL Total Bilirubin 0.2 (0.0-1.0) mg/dL AST 15 (5-31) U/L ALT 20 (0-31) U/L Alkaline Phosphatase 74 (39-117) U/L Total Protein 7.1 (6.5-8.0) g/dL Albumin 3.8 (3.5-5.0) g/dL Beta HCG, Quant < 2 mIU/mL Influenza Type A (PCR) NEGATIVE (Negative) Influenza Type B (PCR) NEGATIVE (Negative) RSV RNA Qual (PCR) NEGATIVE (Negative) SARS-CoV-2 RNA (RT-PCR) NEGATIVE (Negative) Discharge Plan Discharge Clinical Impression: Gastroenteritis, Dehydration Patient Disposition: Home, Self-Care Instructions: Dehydration (ED) Prescriptions: No Action multivitamin Tablet 1 tab PO DAILY amitriptyline 25 mg tablet 25 mg PO BEDTIME 30 Days Qty: 30 0RF Rx Instructions: take with 100mg tab buspirone 10 mg Tablet 10 mg PO TID 30 Days Qty: 110 0RF Rx Instructions: may take 1 tab daily prn for anxiety trazodone 50 mg Tablet 50 mg PO BEDTIME PRN (Reason: Insomnia) 30 Days Qty: 30 0RF lidocaine [Lidocaine Pain Relief] 4 % Adhesive Patch,Medicated 1 patch transdermal DAILY Qty: 0 0RF Protocol: Apply to: Apply to: back gabapentin 600 mg tablet 600 mg PO TID 30 Days Qty: 90 0RF sertraline 100 mg tablet 200 mg PO DAILY 30 Days Qty: 60 0RF oxcarbazepine 300 mg tablet 300 mg PO DAILY@1400 30 Days Qty: 30 0RF pantoprazole 40 mg tablet,delayed release (DR/EC) 40 mg PO DAILY 30 Days Qty: 30 0RF oxcarbazepine 600 mg tablet 600 mg PO BID 30 Days Qty: 60 0RF amitriptyline 100 mg tablet 100 mg PO BEDTIME 30 Days Qty: 30 0RF Rx Instructions: take w/ 25mg tab Artificial Tears([id number]) 1-0.2-0.2 % drops 1 drp ophthalmic (eye) BID PRN (Reason: dry eyes) 30 Days Qty: 15 0RF ondansetron 4 mg tablet,disintegrating 4 mg PO Q6-8H PRN (Reason: nausea and vomiting) Qty: 14 0RF
[2024-01-17 17:03] VITALS: BP 131/66; PULSE 50; RESP 18; TEMP 36.4; O2SAT 100; BMI 44.9
--- NOTE | 2024-01-17 17:06 | ECG_ITS ---
Test Reason : N/V Blood Pressure : / mmHG Vent. Rate : 051 BPM Atrial Rate : 051 BPM P-R Int : 136 ms QRS Dur : 084 ms QT Int : 434 ms P-R-T Axes : 025 003 017 degrees QTc Int : 400 ms Sinus bradycardia Otherwise normal ECG When compared with ECG of 20-JUN-2022 16:31, No significant change was found Referred By: Albertina Jackson Electronically Signed By:Jean Marie Do
[2024-01-17 18:09] LABS: MANUAL DIFF FLAG NO
[2024-01-17 18:11] LABS: Basophils Percent Auto 0.3 % (0-2); Eosinophils Percent Auto 0.1 % (0-4); Hematocrit 38.4 % (37.0-47.0); Hemoglobin 12.8 g/dl (12.0-16.0); Imm Gran Abs Auto 0.01 X10*3/uL (0.00-0.03); Imm Gran Pct Auto 0.1 % (0.0-0.4); Lymphocytes Absolute Auto 2.2 X10*3/uL (1.2-4.9); Lymphocytes Percent Auto 23.8 % (20-40); Mean Corpuscular HGB Conc 33.3 g/dl (31.0-35.0); Mean Corpuscular Hemoglobin 29.6 pg (27.0-33.0); Mean Corpuscular Volume 88.7 fL (80.0-98.0); Mean Platelet Volume 9.8 fL (9.4-12.3); Monocytes Absolute Auto 0.5 X10*3/uL (0.1-1.2); Monocytes Percent Auto 5.7 % (2-11); Neutrophils Absolute Auto 6.6 x10*3/uL (2.0-8.3); Platelet Count 265 X10*3/uL (160-400); Red Blood Count 4.33 X10*6/uL (4.20-5.50); Red Cell Distribution Width 13.1 % (11.0-16.0); White Blood Count 9.4 X10*3/uL (4.8-10.8)
[2024-01-17 18:29] LABS: Alanine Aminotransferase 20 U/L (0-31); Albumin Level 3.8 g/dL (3.5-5.0); Alkaline Phosphatase 74 U/L (39-117); Anion Gap 10 (12-20); Aspartate Amino Transferase 15 U/L (5-31); Bilirubin Total 0.2 mg/dL (0.0-1.0); Blood Urea Nitrogen 15 mg/dL (9-16); Calcium 9.1 mg/dL (8.4-10.2); Carbon Dioxide 27 mmol/L (22-29); Chloride 107 mmol/L (96-108); Creatinine Clr Calc Pharmacy 161.5; Estimated Glomerular Filt Rate > 60; Glucose Random 93 mg/dL (60-115); Magnesium 2.1 mg/dL (1.6-2.6); Potassium 3.8 mmol/L (3.3-5.1); Sodium 140 mmol/L (135-145); Total Protein 7.1 g/dL (6.5-8.0)
[2024-01-17 18:45] LABS: HCG Quantitative < 2 mIU/mL
[2024-01-17 18:55] LABS: Influenza A PCR NEGATIVE (Negative); Influenza B PCR NEGATIVE (Negative); Resp Syncy Virus RNA Qual PCR NEGATIVE (Negative); SARS COV2 PCR INHOUSE NEGATIVE (Negative)
[2024-01-17 21:16] VITALS: BP 131/59; PULSE 60; RESP 18; TEMP 36.9; O2SAT 100
--- NOTE | 2024-01-17 21:19 | PC.NURSE ---
pt states she has a headache, and unable to hold food or water down.
--- NOTE | 2024-01-17 21:34 | PC.NURSE ---
pt not in waiting room at this time and is the 2nd call.
[2024-01-17 22:10] VITALS: BP 114/61; PULSE 50; RESP 14; O2SAT 100
[2024-01-17] MEDS: Famotidine/PF 20 MG/2 ML VIAL IVPUSH (22:30)
[2024-01-17] MEDS: 0.9 % Sodium Chloride 1,000 ML 999 ML IV (22:30)
[2024-01-17] MEDS: ondansetron HCL 4 MG/2 ML VIAL IVPUSH (22:31)
[2024-01-18 00:24] VITALS: BP 111/51; PULSE 47; RESP 16; TEMP 36.7; O2SAT 97
--- NOTE | 2024-01-18 00:31 | PC.NURSE ---
Took of care a 23:00, Pt had Po challenge, tolerated well, Iv removed, reviewed discharge instructions with pt. pt verbalized understanding, No sign of distress.
== END 2024-01-18 00:33 | disposition home or self-care (01) ==
PROVIDERS: Registered Nurse Emergency; Emergency Provider Emergency Medicine
DX: K52.9 Noninfective gastroenteritis and colitis, unspecified (principal); E86.0 Dehydration; R00.1 Bradycardia, unspecified; R11.2 Nausea with vomiting, unspecified; R10.9 Unspecified abdominal pain; G47.00 Insomnia, unspecified; Z11.52 Encounter for screening for COVID-19; Z20.822 Contact with and (suspected) exposure to COVID-19; Z79.899 Other long term (current) drug therapy
CPT/HCPCS: 0241U; 36415; 80053; 83735; 84702; 85025; 93005; 96361; 96374; 96375; 99284; 99285; J2405

== ENCOUNTER → 2024-01-17 17:06 | Outpatient (BNV) | payer OTHER, SELFPAY | PROVIDERS: Emergency Provider Emergency Medicine; Visit Provider Internal Medicine Cardiovascular Disease | DX: R11.2 Nausea with vomiting, unspecified (principal) | CPT/HCPCS: 93010 ==

== ENCOUNTER 2024-04-09 15:08 | Emergency (ER) | payer OTHER, SELFPAY ==
--- NOTE | ~2024-04-09 | CT_ITS ---
EXAMINATION: CT HEAD WITHOUT CONTRAST CLINICAL INFORMATION: Weakness. Headache. COMPARISON: None available. TECHNIQUE: Contiguous axial imaging was performed from the skull base to vertex without intravenous administration of contrast. This CT examination was performed using dose optimization techniques as appropriate, variously including the following: *Automated exposure control *Adjustment of mA and/or kV according to patient size (this includes techniques or standardized protocols for targeted exams where dose is matched to indication/reason for exam; i.e. extremities or head) *Use of iterative reconstruction technique DLP: 608 mGy-cm FINDINGS: There is no evidence for an extra-axial collection. There is no evidence for intra-or extra-axial hemorrhage. The ventricles and extra-axial CSF spaces are appropriate. Kendall-white matter differentiation is normal. No mass, mass effect or infarct is seen. Review of bone windows is normal. No skull fracture. Sinuses and mastoid air cells and middle ears are clear. CT/CT head/brain wo IV con IMPRESSION: Normal nonenhanced head CT
[2024-04-09 15:11] VITALS: BP 122/52; PULSE 72; RESP 16; TEMP 37; O2SAT 99; BMI 43.0
--- NOTE | 2024-04-09 15:11 | ED.GENADULT ---
HPI - General Adult General Chief complaint: Headache Stated complaint: headahce, numbness in hands, face weakness Time Seen by Provider: 04/09/24 16:18 Source: patient Mode of arrival: ambulatory Limitations: language barrier (Cuban speaking only, valve setter used) History of Present Illness ED Provider: Dr. Pramod Ahuja HPI narrative: 38-year-old female with a history of PTSD, major depressive disorder, fibromyalgia, recurrent Castanon's palsy, adjustment disorder with anxiety and depression who presents emergency department for evaluation of headache x1 week, intermittent numbness of her right upper and lower extremity and facial droop that started yesterday. Patient states she does have a history of migraine headaches and took her usual migraine medications which did not relieve her headache. She complains of a constant, pressure-like sensation in the back and front of her head which is 10/10 at its worst. She denied nausea or vomiting. She states she gets intermittent numbness of her right hand and right legs. She states she had sweats and felt cold. She denied myalgias, arthralgias or rash. She has not had any recent tick bites . She states that yesterday she developed numbness to the left side of her face with a facial droop. She states this is at least her 3rd episode of Castanon's palsy. In reviewing her ED notes notes she was here on 06/19/2022 for severe anxiety at that time she had Castanon's palsy. She states she has been very anxious and under stress recently and she believes that this is the cause of her Castanon's palsy. Related Data Home Medications ?Medication ?Instructions ?Recorded ?Confirmed multivitamin 1 tab PO DAILY 06/19/22 08/09/22 Previous Rx's ?Medication ?Instructions ?Recorded amitriptyline 100 mg tablet 100 mg PO BEDTIME 30 days #30 tabs 06/26/22 amitriptyline 25 mg tablet 25 mg PO BEDTIME 30 days #30 tabs 06/26/22 buspirone 10 mg tablet 10 mg PO TID 30 days #110 tabs 06/26/22 gabapentin 600 mg tablet 600 mg PO TID 30 days #90 tabs 06/26/22 lidocaine 4 % topical patch 1 patch transdermal DAILY #0 ea 06/26/22 (Lidocaine Pain Relief) oxcarbazepine 300 mg tablet 300 mg PO DAILY@1400 30 days #30 06/26/22 tabs oxcarbazepine 600 mg tablet 600 mg PO BID 30 days #60 tabs 06/26/22 pantoprazole 40 mg tablet,delayed 40 mg PO DAILY 30 days #30 tabs 06/26/22 release peg [id number] 1 1 drp ophthalmic (eye) BID PRN dry 06/26/22 %-0.2 %-0.2 % eye drops eyes 30 days #15 mL (Artificial Tears ([id number])) sertraline 100 mg tablet 200 mg (2 x 100 mg) PO DAILY 30 06/26/22 days #60 tabs trazodone 50 mg tablet 50 mg PO BEDTIME PRN Insomnia 30 06/26/22 days #30 tabs ondansetron 4 mg disintegrating 4 mg PO Q6-8H PRN nausea and 08/03/23 tablet vomiting #14 tabs prednisone 20 mg tablet 60 mg (3 x 20 mg) PO DAILY 7 days 04/09/24 #21 tabs valacyclovir 1 gram tablet 1,000 mg PO Q8H 7 days #21 tabs 04/09/24 Allergies Allergy/AdvReac Type Severity Reaction Status Date / Time morphine Allergy Intermediate Unknown Verified 04/09/24 15:12 Review of Systems Review of Systems: Yes all other systems are reviewed and are negative [facility] Past Medical History [facility] Narrative: Social history: She denies tobacco use. She occasionally drinks alcohol. She denies drug use. 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 Mother Pacemaker Hypertension Brother Hypertension Social History Social History Household Members: Children Housing: Apartment Do you presently have visiting nurse or other home services: No Patient Tobacco Use Status: Never used Tobacco Smoked in Last 30 Days: No e-Cigarette/Vaping Use: Never Used Use of substances other than those prescribed or required for medical reasons: No Substance Use Type: Marijuana Advance Directives: No Advance Directives Information Provided: No Patient : No service: No Sexual orientation: Straight/Heterosexual Physical Exam ED Vital Signs: Vital Signs - 24 hr 04/09/24 15:11 04/09/24 17:32 04/09/24 20:16 Temperature 98.6 F 97.8 F 97.8 F Pulse Rate 72 51 55 Respiratory Rate 16 16 16 Blood Pressure 122/52 L 132/51 L 101/47 L Pulse Oximetry 99 100 97 Oxygen Delivery Method Room Air Room Air BMI result Body Mass Index 43.0 Patient's vital signs were normal Exam: General: Awake, alert in no distress, elevated BMI Head: Normocephalic, atraumatic, no tenderness with palpation over the temporal regions of her scalp EENT: PERRL, Lids normal, sclera normal, conjunctiva normal, nose normal , ears normal, throat without erythema or exudates Neck: Supple, no adenopathy Lung: breath sounds symmetric, no wheezing, rales or rhonchi Chest: symmetric movement, nontender Heart: regular rate and rhythm, normal S1, S2 no murmurs or rubs Abdomen: soft, non-tender, nondistended, normal bowel sounds Back: no vertebral tenderness, no CVAT Extremities: no deformities, moves all extremities symmetrically Neuro: Awake, alert, oriented, normal speech, cranial nerves intact except revealed a left peripheral 7 palsy, moves all extremities symmetrically Psych: Pleasant, cooperative Course Course Course Narrative: This is an RME done by [facility]: Additional HPI, ROS, PE not included below will be deferred to primary provider. 38 year old female with a pmh of PTSD, MDD, Castanon's palsy, morbid obesity presents with a week of constant headache, nausea, vomiting. Has a history of migraines and has been taking her medications, but they have not been helping. The pain is located in the back of her head. She also complains of right hand numbness intermittently. On Sunday, she reports she could not feel her right leg. Patient also reports right sided facial drooping which began yesterday, hover states she could not come in. Appearance: Alert.? Oriented X3.? No acute cardiopulmonary distress distress.?Right sided drooping of the face with speaking. Head: Normocephalic, atraumatic, no step-offs or deformities ENT: Pharynx normal.??External ears normal, TMs normal bilaterally and EAC's normal. No pain with manipulation of external ears bilaterally. No mastoid tenderness. Neck: Normal inspection.? Neck supple.? CVS: Pulses normal.? Respiratory: No respiratory distress.? Abdomen: Soft and nontender.? Skin: ? Normal skin color. Extremities: 5/5 strength to bilateral upper and lower extremities Back: No midline tenderness, no C-spine tenderness, full range of motion, No CVA tenderness bilaterally Neuro: Oriented X 3.? No motor deficit.? No sensory deficit. Medications Administered Discontinued Medications Generic Name Dose Route Start Last Admin Trade Name Freq PRN Reason Stop Dose Admin Diphenhydramine HCl 50 mg 04/09/24 16:58 04/09/24 17:27 Diphenhydramine Hcl 50 Mg/Ml Vial IVPUSH 04/09/24 16:59 50 mg ONCE STA Administration Hydromorphone HCl 0.5 mg 04/09/24 18:25 04/09/24 19:00 Hydromorphone Hcl 0.5 Mg/0.5 Ml Syringe IVPUSH 04/09/24 18:26 0.5 mg ONCE ONE Administration Protocol Sodium Chloride 1,000 mls @ 999 mls/hr 04/09/24 16:58 04/09/24 18:50 Ns IV 04/09/24 17:58 Infused .Q1H1M STA Infusion Ketorolac Tromethamine 15 mg 04/09/24 16:58 04/09/24 17:27 Ketorolac Tromethamine 15 Mg/Ml Vial IVPUSH 04/09/24 16:59 15 mg ONCE STA Administration Metoclopramide HCl 10 mg 04/09/24 16:58 04/09/24 17:26 Metoclopramide Hcl 10 Mg/2 Ml Vial IVPUSH 04/09/24 16:59 10 mg ONCE STA Administration Prednisone 60 mg 04/09/24 16:58 04/09/24 17:21 Prednisone 20 Mg Tablet PO 04/09/24 16:59 60 mg ONCE ONE Administration Valacyclovir HCl 1,000 mg 04/09/24 16:58 04/09/24 17:21 Valacyclovir Hcl 1,000 Mg Tablet PO 04/09/24 16:59 1,000 mg ONCE ONE Administration Medical Decision Making Medical Decision Making [facility] Narrative: 38-year-old female with a history of PTSD, major depressive disorder, fibromyalgia, recurrent Castanon's palsy, adjustment disorder with anxiety and depression who presents emergency department for evaluation of frontal and occipital pressure, constant pressure-like headache x1 week with intermittent numbness of her right upper and lower extremity and left peripheral 7th facial droop that started yesterday. Patient did have sweats with subjective chills but no recent tick bite, rash, myalgias or arthralgias. Vital signs were normal. Exam did reveal left peripheral cranial nerve 7 facial droop. Neurologic exam was otherwise nonfocal. Differential diagnosis: ?Includes but is not limited to migraine headache, nonspecific headache, viral syndrome, Lyme disease, Castanon's palsy Following evaluation was ordered:CBC, CMP, CRP, ESR, tick-borne illness panel, CT scan of the head Patient was initially treated with the following: Reglan 10 mg IV, Benadryl 50 mg IV, Toradol 15 mg IV , normal saline x1 L, prednisone 60 mg orally and valacyclovir 1000 mg orally Course: 18:25 CT scan of the brain revealed no acute findings. Patient's laboratory evaluation also was unremarkable with non elevated ESR or CRP. Patient got some relief with the above treatment but she states that her headache was not resolved completely she requested more pain medications. Patient was given Dilaudid 0.5 mg IV. I did discuss treatment of Castanon's palsy with the patient and the patient will be started on prednisone 60 mg once a day for 7 days and valacyclovir 1000 mg 3 times a day for 7 days 20:40 Patient states her headache is almost completely resolved in she does feel well enough to be discharged She was given printed and verbal instructions and discharged home. Admission/Observation Consideration of admission/observation: Escalation of care including admission/observation considered Lab Data MDM Lab Attestation statement: I reviewed the patient's lab results. 04/09/24 16:42 04/09/24 16:42 Labs: Lab Results 04/09/24 Range/Units 16:42 WBC 7.8 (4.8-10.8) X10*3/uL RBC 4.42 (4.20-5.50) X10*6/uL Hgb 13.5 (12.0-16.0) g/dl Hct 40.2 (37.0-47.0) % MCV 91.0 (80.0-98.0) fL MCH 30.5 (27.0-33.0) pg MCHC 33.6 (31.0-35.0) g/dl RDW 13.2 (11.0-16.0) % Plt Count 252 (160-400) X10*3/uL MPV 10.2 (9.4-12.3) fL Immature Gran % (Auto) 0.3 (0.0-0.4) % Neut % (Auto) 63.8 (45-73) % Lymph % (Auto) 28.5 (20-40) % Dixon % (Auto) 6.5 (2-11) % Eos % (Auto) 0.5 (0-4) % Baso % (Auto) 0.4 (0-2) % Lymph # (Auto) 2.2 (1.2-4.9) X10*3/uL Dixon # (Auto) 0.5 (0.1-1.2) X10*3/uL Eos # (Auto) 0.0 (0.0-0.4) X10*3/uL Baso # (Auto) 0.0 (0.0-0.2) X10*3/uL Abs Immat Gran (auto) 0.02 (0.00-0.03) X10*3/uL Absolute Neuts (auto) 5.0 (2.0-8.3) x10*3/uL Absolute Nucleated RBC 0.000 (0.0-0.012) X10*3/uL Nucleated RBC % (auto) 0.0 (0.0-0.2) /100WBC Smear Tech's Comments VERIFIED ESR 14 (0-20) MM/HR Sodium 140 (135-145) mmol/L Potassium 4.1 (3.3-5.1) mmol/L Chloride 112 H (96-108) mmol/L Carbon Dioxide 24 (22-29) mmol/L Anion Gap 8 L (12-20) BUN 19 H (9-16) mg/dL Creatinine 0.63 (0.5-1.4) mg/dL Estim Creat Clear Calc 167.5 Estimated GFR > 60 Random Glucose 75 (60-115) mg/dL Calcium 8.6 (8.4-10.2) mg/dL Total Bilirubin 0.3 (0.0-1.0) mg/dL AST 16 (5-31) U/L ALT 19 (0-31) U/L Alkaline Phosphatase 81 (39-117) U/L C-Reactive Protein 0.25 (< or = 0.50) mg/dL Total Protein 6.8 (6.5-8.0) g/dL Albumin 3.9 (3.5-5.0) g/dL Radiology Impression Discussion of test interpretation with radiology: I have reviewed the radiologist's reading. Radiologist Impression: CT head/brain wo IV con IMPRESSION: Normal nonenhanced head CT Dictated By: Estrella Whitehead MD Prescription Management I considered prescription management with: Antiviral and Other (Anti-inflammatory steroids) Critical Care Time Critical Care Time Critical Care Time: Yes Total Critical Care Time: 35 Attestation: Critical Care: The patient was critically ill with a high probability of imminent or life threatening deterioration. I spent greater than 30 minutes of discontinuous time evaluating the patient,delivering critical care at the bedside, discussing and evaluating pertinent data with consultants. Critical care time does not include time spent performing separately billable procedures or teaching. Total time spent performing critical care was 35 minutes. Discharge Plan Discharge Clinical Impression: Migraine headache, Left-sided Castanon's palsy Patient Disposition: Home, Self-Care Instructions: Castanon Palsy (ED) Additional Instructions: The CT scan of your brain was unremarkable. Your blood work was normal. Your headache is consistent with an atypical migraine. Continue taking your migraine medications as prescribed by your provider. You do have a left facial droop again which is consistent with Castanon's palsy. I do not know why this continues to recur but we did test you for tick-borne illnesses, these results will not come back today but the ER will contact you if these results are positive in you need treatment. Take prednisone 20 mg pills, 3 pills once a day for 7 days. While you ?are taking prednisone, do not take any NSAIDs (Motrin, Advil, ibuprofen, Aleve, naproxen). Take valacyclovir 1000 mg 3 times a day for 7 days Continue other medications as prescribed by your providers. Follow-up with your doctor in 2 days. Please return to the emergency department if your symptoms get worse or if you develop any symptoms that are concerning to you. Prescriptions: New prednisone 20 mg tablet 60 mg PO DAILY 7 Days Qty: 21 0RF valacyclovir 1 gram tablet 1,000 mg PO Q8H 7 Days Qty: 21 0RF No Action multivitamin Tablet 1 tab PO DAILY amitriptyline 25 mg tablet 25 mg PO BEDTIME 30 Days Qty: 30 0RF Rx Instructions: take with 100mg tab buspirone 10 mg Tablet 10 mg PO TID 30 Days Qty: 110 0RF Rx Instructions: may take 1 tab daily prn for anxiety trazodone 50 mg Tablet 50 mg PO BEDTIME PRN (Reason: Insomnia) 30 Days Qty: 30 0RF lidocaine [Lidocaine Pain Relief] 4 % Adhesive Patch,Medicated 1 patch transdermal DAILY Qty: 0 0RF Protocol: Apply to: Apply to: back gabapentin 600 mg tablet 600 mg PO TID 30 Days Qty: 90 0RF sertraline 100 mg tablet 200 mg PO DAILY 30 Days Qty: 60 0RF oxcarbazepine 300 mg tablet 300 mg PO DAILY@1400 30 Days Qty: 30 0RF pantoprazole 40 mg tablet,delayed release (DR/EC) 40 mg PO DAILY 30 Days Qty: 30 0RF oxcarbazepine 600 mg tablet 600 mg PO BID 30 Days Qty: 60 0RF amitriptyline 100 mg tablet 100 mg PO BEDTIME 30 Days Qty: 30 0RF Rx Instructions: take w/ 25mg tab Artificial Tears([id number]) 1-0.2-0.2 % drops 1 drp ophthalmic (eye) BID PRN (Reason: dry eyes) 30 Days Qty: 15 0RF ondansetron 4 mg tablet,disintegrating 4 mg PO Q6-8H PRN (Reason: nausea and vomiting) Qty: 14 0RF Print Language: Cuban
[2024-04-09 16:49] LABS: Basophils Percent Auto 0.4 % (0-2); Imm Gran Abs Auto 0.02 X10*3/uL (0.00-0.03); Imm Gran Pct Auto 0.3 % (0.0-0.4); MANUAL DIFF FLAG SCAN; Mean Platelet Volume 10.2 fL (9.4-12.3); Neutrophils Percent Auto 63.8 % (45-73); PLT CLUMP 1; SCAN SMEAR FLAG 1
[2024-04-09 16:51] LABS: Eosinophils Percent Auto 0.5 % (0-4); Hematocrit 40.2 % (37.0-47.0); Hemoglobin 13.5 g/dl (12.0-16.0); Lymphocytes Absolute Auto 2.2 X10*3/uL (1.2-4.9); Lymphocytes Percent Auto 28.5 % (20-40); Mean Corpuscular HGB Conc 33.6 g/dl (31.0-35.0); Mean Corpuscular Hemoglobin 30.5 pg (27.0-33.0); Monocytes Absolute Auto 0.5 X10*3/uL (0.1-1.2); Monocytes Percent Auto 6.5 % (2-11); Red Blood Count 4.42 X10*6/uL (4.20-5.50); Red Cell Distribution Width 13.2 % (11.0-16.0)
[2024-04-09 17:00] LABS: White Blood Count 7.8 X10*3/uL (4.8-10.8)
[2024-04-09 17:15] LABS: Alanine Aminotransferase 19 U/L (0-31); Albumin Level 3.9 g/dL (3.5-5.0); Alkaline Phosphatase 81 U/L (39-117); Anion Gap 8 (12-20); Aspartate Amino Transferase 16 U/L (5-31); Bilirubin Total 0.3 mg/dL (0.0-1.0); Blood Urea Nitrogen 19 mg/dL (9-16); C Reactive Protein 0.25 mg/dL (< or = 0.50); Calcium 8.6 mg/dL (8.4-10.2); Carbon Dioxide 24 mmol/L (22-29); Chloride 112 mmol/L (96-108); Creatinine Clr Calc Pharmacy 167.5; Estimated Glomerular Filt Rate > 60; Glucose Random 75 mg/dL (60-115); Potassium 4.1 mmol/L (3.3-5.1); Sodium 140 mmol/L (135-145); Total Protein 6.8 g/dL (6.5-8.0)
[2024-04-09] MEDS: valACYclovir HCL 1,000 MG TABLET 1000 MG PO (17:21)
[2024-04-09] MEDS: predniSONE 20 MG TABLET 60 MG PO (17:21)
[2024-04-09] MEDS: Metoclopramide HCl 10 MG/2 ML VIAL IVPUSH (17:26)
[2024-04-09] MEDS: 0.9 % Sodium Chloride 1,000 ML 999 ML IV (17:26)
[2024-04-09] MEDS: diphenhydrAMINE HCL 50 MG/ML VIAL IVPUSH (17:27)
[2024-04-09] MEDS: Ketorolac Tromethamine 15 MG/ML VIAL IVPUSH (17:27)
[2024-04-09 17:32] VITALS: BP 132/51; PULSE 51; RESP 16; TEMP 36.6; O2SAT 100
[2024-04-09 18:01] LABS: Erythrocyte Sedimentation Rate 14 MM/HR (0-20)
[2024-04-09 18:08] LABS: Platelet Count 252 X10*3/uL (160-400)
[2024-04-09 18:09] LABS: SLIDE REVIEW VERIFIED
[2024-04-09] MEDS: HYDROmorphone HCl 0.5 MG/0.5 ML SYRINGE IVPUSH (19:00)
[2024-04-09 20:16] VITALS: BP 101/47; PULSE 55; RESP 16; TEMP 36.6; O2SAT 97
[2024-04-09 20:52] VITALS: BP 101/47; PULSE 55; RESP 16; TEMP 36.6; O2SAT 97
[2024-04-11 06:19] LABS: Lyme Abs Screen <0.90 index
[2024-04-11 17:53] LABS: A. Phagocytphilium DNA,RT-PCR NOT DETECTED (NOT DETECTED); Babesia Microti DNA, RT-PCR NOT DETECTED (NOT DETECTED); Borrelia Miyamotoi,DNA RT-PCR NOT DETECTED (NOT DETECTED); E.Chaffeensis DNA RT-PCR NOT DETECTED (NOT DETECTED); Lyme(Borrelia ssp)DNA RT-PCR NOT DETECTED (NOT DETECTED)
== END 2024-04-09 20:52 | disposition home or self-care (01) ==
PROVIDERS: Physician Assistant; Emergency Provider Emergency Medicine Emergency Medical Services
DX: G43.909 Migraine, unspecified, not intractable, without status migrainosus (principal); G51.0 Bell's palsy; F41.9 Anxiety disorder, unspecified; I95.9 Hypotension, unspecified; F43.12 Post-traumatic stress disorder, chronic; F33.1 Major depressive disorder, recurrent, moderate; E66.01 Morbid (severe) obesity due to excess calories; Z68.41 Body mass index [BMI] 40.0-44.9, adult; Z79.899 Other long term (current) drug therapy
CPT/HCPCS: 36415; 70450; 80053; 85025; 85652; 86140; 86617; 86618; 87468; 87469; 87478; 87484; 87798; 96361; 96374; 96375; 99284; 99285; J1170; J1200; J1885; J2765

== ENCOUNTER 2024-04-14 14:08 | Emergency (ER) | payer OTHER, SELFPAY ==
--- NOTE | ~2024-04-14 | XR_ITS ---
EXAMINATION: XR CHEST CLINICAL INFORMATION: Chest pain. COMPARISON: None available. TECHNIQUE: 2 views of the chest were obtained. FINDINGS: The lungs are well expanded. Eventration of the right hemidiaphragm. No focal consolidation. No pleural effusion. Cardiac silhouette is within normal limits. XR/XR chest 2V IMPRESSION: No acute abnormality.
[2024-04-14 14:50] VITALS: BP 96/48; PULSE 68; RESP 18; TEMP 36.6; O2SAT 98; BMI 43.1
--- NOTE | 2024-04-14 14:50 | ED_ITS ---
HPI - General Adult General Chief complaint: General Medical Stated complaint: headache dizzy vomiting multiple issues Time Seen by Provider: 04/15/24 06:30 Source: patient, RN notes reviewed and old records reviewed Mode of arrival: ambulatory History of Present Illness ED Provider: Carli Buchanan PA-C HPI narrative: 38-year-old female with a history of PTSD, major depressive disorder, fibromyalgia, recurrent Castanon's palsy, adjustment disorder with anxiety and depression presenting to the ED complaining of headache x2 weeks with associated nausea, fatigue, exertional dyspnea, and bradycardia, states heart rate has been in the 40s. Also reports nausea and vomiting. Patient was evaluated in our ED on 04/09 for similar symptoms, diagnosed with Castanon's palsy at that time, reports compliance with prescribed Valtrex and prednisone. Reports history of migraine headaches, has been taking migraine medication at home with brief relief. Denies vision change/loss, chest pain, SOB at present, pedal edema/calf tenderness, weakness. Related Data Home Medications ?Medication ?Instructions ?Recorded ?Confirmed multivitamin 1 tab PO DAILY 06/19/22 08/09/22 Previous Rx's ?Medication ?Instructions ?Recorded amitriptyline 100 mg tablet 100 mg PO BEDTIME 30 days #30 tabs 06/26/22 amitriptyline 25 mg tablet 25 mg PO BEDTIME 30 days #30 tabs 06/26/22 buspirone 10 mg tablet 10 mg PO TID 30 days #110 tabs 06/26/22 gabapentin 600 mg tablet 600 mg PO TID 30 days #90 tabs 06/26/22 lidocaine 4 % topical patch 1 patch transdermal DAILY #0 ea 06/26/22 (Lidocaine Pain Relief) oxcarbazepine 300 mg tablet 300 mg PO DAILY@1400 30 days #30 06/26/22 tabs oxcarbazepine 600 mg tablet 600 mg PO BID 30 days #60 tabs 06/26/22 pantoprazole 40 mg tablet,delayed 40 mg PO DAILY 30 days #30 tabs 06/26/22 release peg [id number] 1 1 drp ophthalmic (eye) BID PRN dry 06/26/22 %-0.2 %-0.2 % eye drops eyes 30 days #15 mL (Artificial Tears ([id number])) sertraline 100 mg tablet 200 mg (2 x 100 mg) PO DAILY 30 06/26/22 days #60 tabs trazodone 50 mg tablet 50 mg PO BEDTIME PRN Insomnia 30 06/26/22 days #30 tabs ondansetron 4 mg disintegrating 4 mg PO Q6-8H PRN nausea and 08/03/23 tablet vomiting #14 tabs prednisone 20 mg tablet 60 mg (3 x 20 mg) PO DAILY 7 days 04/09/24 #21 tabs valacyclovir 1 gram tablet 1,000 mg PO Q8H 7 days #21 tabs 04/09/24 Allergies Allergy/AdvReac Type Severity Reaction Status Date / Time morphine Allergy Intermediate Unknown Verified 04/14/24 14:54 Review of Systems 2 Review of Systems: Constitutional: No Fever, No Chills, +fatigue ENT/Mouth: No Ear Pain, No Nasal Congestion, No sore throat, No Rhinorrhea, No Swallowing Difficulty Cardiovascular: No Chest Pain, + SOB on exertion Respiratory: No Cough, No Sputum, No Wheezing Gastrointestinal: +Nausea, + Vomiting, No Diarrhea, No Constipation, No Abdominal pain Genitourinary: No Dysuria, No Urinary Frequency, No Hematuria,No Flank Pain Musculoskeletal: No joint pain, No Myalgias, No Joint Swelling Skin: No Skin Lesions, No rash Neuro: No Weakness, No Numbness, No Paresthesias, +TEJADA, + facial paralysis Yes all other systems are reviewed and are negative Constitutional: Constitutional: Reports as per HPI Neurologic: Denies Abnormal speech present [facility] Past Medical History Attestation statement: The following information was validated with the patient. Source: old records reviewed Medical History Chronic post-traumatic stress disorder (PTSD) MDD (major depressive disorder), recurrent episode, moderate Castanon's palsy Adjustment disorder with mixed anxiety and depressed mood Surgical History History of foot surgery History of bariatric surgery Family History Family History Father No problems noted. Mother Pacemaker Hypertension Brother Hypertension Social History Social History Household Members: Children Housing: Apartment Do you presently have visiting nurse or other home services: No Patient Tobacco Use Status: Never used Tobacco e-Cigarette/Vaping Use: Never Used Substance Use Type: Marijuana Advance Directives: No Advance Directives Information Provided: No Do you have a plan to hurt others: No Plan service: No Sexual orientation: Straight/Heterosexual Physical Exam ED Vital Signs: Vital Signs - 24 hr 04/14/24 14:50 04/14/24 19:59 04/15/24 01:33 Temperature 97.9 F 98.2 F 98.3 F Pulse Rate 68 52 76 Respiratory Rate 18 18 17 Blood Pressure 96/48 L 119/77 126/79 Pulse Oximetry 98 98 96 Oxygen Delivery Method Room Air Room Air Room Air 04/15/24 06:50 04/15/24 08:49 Temperature 97.3 F Pulse Rate 56 47 L Respiratory Rate 18 18 Blood Pressure 98/52 L 101/44 L Pulse Oximetry 100 100 Oxygen Delivery Method Room Air Room Air BMI result Body Mass Index 43.1 Const General: cooperative, healthy appearing and no acute distress Orientation/consciousness: patient oriented x3 Limitations: no limitations HENMT Other: +left sided facial paralysis Head: Yes normal to inspection and Yes atraumatic Ears: hearing grossly normal bilaterally General nose exam: Normal external nose present Throat: Yes posterior oropharynx normal Eyes General: appearance normal, both eyes and all related structures EOM: EOMs intact bilaterally Neck Neck: Yes normal visual inspection and Yes no meningeal signs Resp Effort & Inspection: normal respiratory effort and no respiratory distress Auscultation: clear to auscultation bilaterally, no crackles and no wheezes Cardio Rate: regular rate Heart sounds: S1 normal heart sound present and S2 normal heart sound present GI Inspection: Yes normal to inspection Palpation (GI): Soft to palpation, nontender, no guarding and not rigid Skin Rashes: no rashes Wounds: no wounds Neuro General: patient oriented x3, tone normal, moves all extremities, no meningeal signs and no focal motor deficits Cognition (Neuro): normal cognition Speech: No Abnormal speech present Gait exam (Neuro): Normal gait present Motor exam (neuro): 5/5 motor strength present throughout, Pronator motor function not present and no tremor noted Coordination: [id number] test normal Extrem General: Yes normal to inspection and Yes no pedal edema Course Course Course Narrative: RME- 38 year old female presents for evaluation of multiple complaints including nausea, vomiting, headache. She reports shortness of breath with exertion. She also states that her heart rate has been low in the 40's. Plan for EKG, labs. The patient was seen here last week for Castanon's palsy and is currently taking prednisone and valacyclovir. -0819--labs reassuring/unremarkable. Viral studies negative -CXR unremarkable -1004--troponin and BNP WNL. On re-evaluation patient is sleeping comfortably, awoken reports symptomatic improvement. Feels safe for discharge home at this time. Results discussed with patient including worrisome signs and symptoms and strict return precautions, and when to return to the emergency department. They verbalized understanding and feel safe for discharge at this time. Medications Administered Discontinued Medications Generic Name Dose Route Start Last Admin Trade Name Fred PRN Reason Stop Dose Admin Acetaminophen 975 mg 04/14/24 19:58 04/14/24 20:01 Acetaminophen 325 Mg Tablet PO 04/14/24 19:59 975 mg ONCE ONE Administration Diphenhydramine HCl 25 mg 04/15/24 07:05 04/15/24 07:51 Diphenhydramine Hcl 50 Mg/Ml Vial IVPUSH 04/15/24 07:06 25 mg ONCE ONE Administration Ketorolac Tromethamine 15 mg 04/15/24 07:05 04/15/24 07:51 Ketorolac Tromethamine 15 Mg/Ml Vial IVPUSH 04/15/24 07:06 15 mg ONCE ONE Administration Metoclopramide HCl 10 mg 04/15/24 07:05 04/15/24 07:51 Metoclopramide Hcl 10 Mg/2 Ml Vial IVPUSH 04/15/24 07:06 10 mg ONCE ONE Administration Medical Decision Making Medical Decision Making [facility] Narrative: 38-year-old female with a history of PTSD, major depressive disorder, fibromyalgia, recurrent Castanon's palsy, adjustment disorder with anxiety and depression presenting to the ED complaining of headache x2 weeks with associated nausea, fatigue, exertional dyspnea, and bradycardia, states heart rate has been in the 40s. On exam BP soft, patient was sleeping comfortably, in no apparent distress, left-sided Castanon's palsy appreciated, no other focal neuro deficits. Lungs CTA. Concern for migraine headache vs anxiety vs continued Castanon's palsy vs viral syndrome. Low suspicion for CVA/TIA, tick-borne illness or SAH. Unlikely ACS/CHF Labs and imaging reviewed from 04/09 Plan: EKG, labs, symptomatic treatment, re-evaluate Patient admits she has appointment with neurology and cardiology scheduled Please refer to course for remaining clinical decision making, interpretation of labs/imaging results, and discussions with consultants and/or family members. Differential Diagnosis Differential Diagnoses: The differential diagnosis associated with the presentation includes As above Admission/Observation Consideration of admission/observation: Escalation of care including admission/observation considered Lab Data MDM Lab Attestation statement: I reviewed the patient's lab results. 04/14/24 15:24 04/14/24 15:24 Labs: Lab Results 04/14/24 04/14/24 04/15/24 Range/Units 15:24 20:03 07:03 WBC 9.2 (4.8-10.8) X10*3/uL RBC 4.50 (4.20-5.50) X10*6/uL Hgb 13.7 (12.0-16.0) g/dl Hct 40.4 (37.0-47.0) % MCV 89.8 (80.0-98.0) fL MCH 30.4 (27.0-33.0) pg MCHC 33.9 (31.0-35.0) g/dl RDW 13.2 (11.0-16.0) % Plt Count 245 (160-400) X10*3/uL MPV 9.9 (9.4-12.3) fL Immature Gran % (Auto) 0.2 (0.0-0.4) % Neut % (Auto) 88.3 H (45-73) % Lymph % (Auto) 9.5 L (20-40) % [place] % (Auto) 1.9 L (2-11) % Eos % (Auto) 0.0 (0-4) % Baso % (Auto) 0.1 (0-2) % Lymph # (Auto) 0.9 L (1.2-4.9) X10*3/uL [place] # (Auto) 0.2 (0.1-1.2) X10*3/uL Eos # (Auto) 0.0 (0.0-0.4) X10*3/uL Baso # (Auto) 0.0 (0.0-0.2) X10*3/uL Abs Immat Gran (auto) 0.02 (0.00-0.03) X10*3/uL Absolute Neuts (auto) 8.1 (2.0-8.3) x10*3/uL Absolute Nucleated RBC 0.000 (0.0-0.012) X10*3/uL Nucleated RBC % (auto) 0.0 (0.0-0.2) /100WBC PT 11.2 (11.1-13.3) SEC INR 0.9 (0.9-1.1) Sodium 141 (135-145) mmol/L Potassium 4.0 (3.3-5.1) mmol/L Chloride 108 (96-108) mmol/L Carbon Dioxide 27 (22-29) mmol/L Anion Gap 10 L (12-20) BUN 20 H (9-16) mg/dL Creatinine 0.68 (0.5-1.4) mg/dL Estim Creat Clear Calc 155.3 Estimated GFR > 60 Random Glucose 101 (60-115) mg/dL Calcium 8.9 (8.4-10.2) mg/dL Magnesium 2.2 (1.6-2.6) mg/dL Total Bilirubin 0.4 (0.0-1.0) mg/dL AST 17 (5-31) U/L ALT 34 H (0-31) U/L Alkaline Phosphatase 74 (39-117) U/L Troponin I High Sens < 2.7 (<3.5-17.0) ng/L B-Natriuretic Peptide 32 (<100) pg/mL Total Protein 7.0 (6.5-8.0) g/dL Albumin 4.0 (3.5-5.0) g/dL Lipase 22 (8-78) U/L TSH 0.42 (0.32-4.0) uIU/mL Beta HCG, Quant < 2 mIU/mL Influenza Type A (PCR) NEGATIVE (Negative) Influenza Type B (PCR) NEGATIVE (Negative) RSV RNA Qual (PCR) NEGATIVE (Negative) SARS-CoV-2 RNA (RT-PCR) NEGATIVE (Negative) Independent Interpretation I performed an independent interpretation of an: EKG (My interpretation EKG normal sinus rhythm rate of 66. IN interval 130. QTC 415. No significant change when compared to prior. No STEMI) Radiology Impression Discussion of test interpretation with radiology: I have reviewed the radiologist's reading. External Record Review External record reviewed: Inpatient record, Office record, Outpatient record, Prior outpatient labs, Prior outpatient radiology, Primary care record and Outside ED record Tests considered The following testing was considered but not selected: As above Prescription Management I considered prescription management with: Pain Medication, Antiviral and Antibiotic Chronic Conditions Patient?s care impacted by: Other Discharge Plan Discharge Clinical Impression: Headache, Exertional dyspnea Patient Disposition: Home, Self-Care Instructions: Acute Headache (DC), Dyspnea (ED) Additional Instructions: Please continue taking previously prescribed medications until completion Please follow-up with cardiology and neurology as previously discussed Continue home medications including her migraine medications If symptoms persist or worsen you constant worsening headache, nausea/vomiting, weakness return to the ED Prescriptions: No Action multivitamin Tablet 1 tab PO DAILY amitriptyline 25 mg tablet 25 mg PO BEDTIME 30 Days Qty: 30 0RF Rx Instructions: take with 100mg tab buspirone 10 mg Tablet 10 mg PO TID 30 Days Qty: 110 0RF Rx Instructions: may take 1 tab daily prn for anxiety trazodone 50 mg Tablet 50 mg PO BEDTIME PRN (Reason: Insomnia) 30 Days Qty: 30 0RF lidocaine [Lidocaine Pain Relief] 4 % Adhesive Patch,Medicated 1 patch transdermal DAILY Qty: 0 0RF Protocol: Apply to: Apply to: back gabapentin 600 mg tablet 600 mg PO TID 30 Days Qty: 90 0RF sertraline 100 mg tablet 200 mg PO DAILY 30 Days Qty: 60 0RF oxcarbazepine 300 mg tablet 300 mg PO DAILY@1400 30 Days Qty: 30 0RF pantoprazole 40 mg tablet,delayed release (DR/EC) 40 mg PO DAILY 30 Days Qty: 30 0RF oxcarbazepine 600 mg tablet 600 mg PO BID 30 Days Qty: 60 0RF amitriptyline 100 mg tablet 100 mg PO BEDTIME 30 Days Qty: 30 0RF Rx Instructions: take w/ 25mg tab Artificial Tears([id number]) 1-0.2-0.2 % drops 1 drp ophthalmic (eye) BID PRN (Reason: dry eyes) 30 Days Qty: 15 0RF ondansetron 4 mg tablet,disintegrating 4 mg PO Q6-8H PRN (Reason: nausea and vomiting) Qty: 14 0RF prednisone 20 mg tablet 60 mg PO DAILY 7 Days Qty: 21 0RF valacyclovir 1 gram tablet 1,000 mg PO Q8H 7 Days Qty: 21 0RF Referrals: [facility] [Provider Group] [facility] [place] [facility] [Provider Group] Print Language: Vincentian
--- NOTE | 2024-04-14 14:52 | ECG_ITS ---
Test Reason : DIZZINESS Blood Pressure : / mmHG Vent. Rate : 066 BPM Atrial Rate : 066 BPM P-R Int : 130 ms QRS Dur : 092 ms QT Int : 396 ms P-R-T Axes : 016 -05 017 degrees QTc Int : 415 ms Normal sinus rhythm Minimal voltage criteria for LVH, may be normal variant ( R in aVL ) Borderline ECG When compared with ECG of 17-JAN-2024 17:28, No significant change was found Referred By: Sha Poole Electronically Signed By:PATRIZIA HERNANDEZ MD
[2024-04-14 15:29] LABS: MANUAL DIFF FLAG NO
[2024-04-14 15:30] LABS: Basophils Percent Auto 0.1 % (0-2); Hematocrit 40.4 % (37.0-47.0); Hemoglobin 13.7 g/dl (12.0-16.0); Imm Gran Abs Auto 0.02 X10*3/uL (0.00-0.03); Imm Gran Pct Auto 0.2 % (0.0-0.4); Lymphocytes Absolute Auto 0.9 X10*3/uL (1.2-4.9); Lymphocytes Percent Auto 9.5 % (20-40); Mean Corpuscular HGB Conc 33.9 g/dl (31.0-35.0); Mean Corpuscular Hemoglobin 30.4 pg (27.0-33.0); Mean Corpuscular Volume 89.8 fL (80.0-98.0); Mean Platelet Volume 9.9 fL (9.4-12.3); Monocytes Absolute Auto 0.2 X10*3/uL (0.1-1.2); Monocytes Percent Auto 1.9 % (2-11); Neutrophils Absolute Auto 8.1 x10*3/uL (2.0-8.3); Neutrophils Percent Auto 88.3 % (45-73); Platelet Count 245 X10*3/uL (160-400); Red Cell Distribution Width 13.2 % (11.0-16.0); White Blood Count 9.2 X10*3/uL (4.8-10.8)
[2024-04-14 15:39] LABS: INTERNATIONAL NORM RATIO 0.9 (0.9-1.1); Prothrombin Time 11.2 SEC (11.1-13.3)
[2024-04-14 15:52] LABS: Alanine Aminotransferase 34 U/L (0-31); Alkaline Phosphatase 74 U/L (39-117); Anion Gap 10 (12-20); Aspartate Amino Transferase 17 U/L (5-31); Bilirubin Total 0.4 mg/dL (0.0-1.0); Blood Urea Nitrogen 20 mg/dL (9-16); Calcium 8.9 mg/dL (8.4-10.2); Carbon Dioxide 27 mmol/L (22-29); Chloride 108 mmol/L (96-108); Creatinine Clr Calc Pharmacy 155.3; Estimated Glomerular Filt Rate > 60; Glucose Random 101 mg/dL (60-115); Lipase 22 U/L (8-78); Magnesium 2.2 mg/dL (1.6-2.6); Sodium 141 mmol/L (135-145)
[2024-04-14 16:01] LABS: HCG Quantitative < 2 mIU/mL
[2024-04-14 16:13] LABS: TSH reflex Free T4 0.42 uIU/mL (0.32-4.0)
[2024-04-14 19:59] VITALS: BP 119/77; PULSE 52; RESP 18; TEMP 36.8; O2SAT 98
[2024-04-14] MEDS: Acetaminophen 325 MG TABLET 975 MG PO (20:01)
[2024-04-14 20:48] LABS: Influenza A PCR NEGATIVE (Negative); Influenza B PCR NEGATIVE (Negative); Resp Syncy Virus RNA Qual PCR NEGATIVE (Negative); SARS COV2 PCR INHOUSE NEGATIVE (Negative)
[2024-04-15 01:33] VITALS: BP 126/79; PULSE 76; RESP 17; TEMP 36.8; O2SAT 96
--- NOTE | 2024-04-15 04:04 | PC.NURSE ---
pt resting with eyes closed, breathing even and unlabored, no apparent distress noted
[2024-04-15 06:50] VITALS: BP 98/52; PULSE 56; RESP 18; O2SAT 100
[2024-04-15 07:35] LABS: B Type Natriuretic Peptide 32 pg/mL (<100)
[2024-04-15 07:39] LABS: Troponin-I High Sensitivity < 2.7 ng/L (<3.5-17.0)
[2024-04-15] MEDS: Metoclopramide HCl 10 MG/2 ML VIAL IVPUSH (07:51)
[2024-04-15] MEDS: Ketorolac Tromethamine 15 MG/ML VIAL IVPUSH (07:51)
[2024-04-15] MEDS: diphenhydrAMINE HCL 50 MG/ML VIAL 25 MG IVPUSH (07:51)
[2024-04-15 08:49] VITALS: BP 101/44; PULSE 47; RESP 18; TEMP 36.3; O2SAT 100
[2024-04-15 11:11] VITALS: BP 103/44; PULSE 54; RESP 18; TEMP 36.7; O2SAT 100
== END 2024-04-15 11:28 | disposition home or self-care (01) ==
PROVIDERS: Physician Assistant; Emergency Provider Emergency Medicine
DX: R51.9 Headache, unspecified (principal); R06.02 Shortness of breath; R11.2 Nausea with vomiting, unspecified; F12.90 Cannabis use, unspecified, uncomplicated; Z03.818 Encounter for observation for suspected exposure to other biological agents ruled out
CPT/HCPCS: 0241U; 36415; 71046; 80053; 83690; 83735; 83880; 84443; 84484; 84702; 85025; 85610; 93005; 96374; 96375; 99284; J1200; J1885; J2765

== ENCOUNTER → 2024-04-14 14:52 | Outpatient (BNV) | payer OTHER, SELFPAY | PROVIDERS: Visit Provider Internal Medicine Cardiovascular Disease | DX: R42 Dizziness and giddiness (principal) | CPT/HCPCS: 93010 ==

== ENCOUNTER 2024-05-22 16:55 | Emergency (ER) | payer OTHER, SELFPAY ==
[2024-05-22 17:20] VITALS: BP 108/77; PULSE 67; RESP 18; TEMP 36.9; O2SAT 97; BMI 42.1
--- NOTE | 2024-05-22 17:21 | ED.ABDPAIN ---
HPI - Abdominal Pain General Chief Complaint: Abdominal Pain Stated Complaint: fever coughing headache abd pain Time Seen by Provider: 05/22/24 18:26 Source: patient Mode of arrival: ambulatory Limitations: no limitations History of Present Illness ED Provider: El Gifford PA-C HPI narrative: 39 yo female presenting to the ER for evaluation of 4 days of not feeling well. She reports subjective fevers at home, fever, left sided abdominal pains and diarrhea. She reports weakness, decreased appetite and generally not feeling well. No SOB or chest pain. Symptoms started after she spent the [facility]. No one else she was with is sick. she has not vomited and does not have blood in her stools. MD elicited complaint: abdominal pain and other (fever, cough, malaise) Onset (ago): day(s) Pain Consistency: constant Quality: aching Radiation: LUQ Migration to: no migration Exacerbating factors: nothing Relieving factors: nothing Associated symptoms: diarrhea, fever and chills Related Data Home Medications ?Medication ?Instructions ?Recorded ?Confirmed multivitamin 1 tab PO DAILY 06/19/22 08/09/22 Previous Rx's ?Medication ?Instructions ?Recorded amitriptyline 100 mg tablet 100 mg PO BEDTIME 30 days #30 tabs 06/26/22 amitriptyline 25 mg tablet 25 mg PO BEDTIME 30 days #30 tabs 06/26/22 buspirone 10 mg tablet 10 mg PO TID 30 days #110 tabs 06/26/22 gabapentin 600 mg tablet 600 mg PO TID 30 days #90 tabs 06/26/22 lidocaine 4 % topical patch 1 patch transdermal DAILY #0 ea 06/26/22 (Lidocaine Pain Relief) oxcarbazepine 300 mg tablet 300 mg PO DAILY@1400 30 days #30 06/26/22 tabs oxcarbazepine 600 mg tablet 600 mg PO BID 30 days #60 tabs 06/26/22 pantoprazole 40 mg tablet,delayed 40 mg PO DAILY 30 days #30 tabs 06/26/22 release peg [id number] 1 1 drp ophthalmic (eye) BID PRN dry 06/26/22 %-0.2 %-0.2 % eye drops eyes 30 days #15 mL (Artificial Tears ([id number])) sertraline 100 mg tablet 200 mg (2 x 100 mg) PO DAILY 30 06/26/22 days #60 tabs trazodone 50 mg tablet 50 mg PO BEDTIME PRN Insomnia 30 06/26/22 days #30 tabs ondansetron 4 mg disintegrating 4 mg PO Q6-8H PRN nausea and 08/03/23 tablet vomiting #14 tabs prednisone 20 mg tablet 60 mg (3 x 20 mg) PO DAILY 7 days 04/09/24 #21 tabs valacyclovir 1 gram tablet 1,000 mg PO Q8H 7 days #21 tabs 04/09/24 Allergies Allergy/AdvReac Type Severity Reaction Status Date / Time morphine Allergy Intermediate Unknown Verified 05/22/24 17:21 Review of Systems Review of Systems Yes all other systems are reviewed and are negative [facility] Past Medical History Medical History Chronic post-traumatic stress disorder (PTSD) MDD (major depressive disorder), recurrent episode, moderate Castanon's palsy Adjustment disorder with mixed anxiety and depressed mood Surgical History History of foot surgery History of bariatric surgery Family History Family History Father No problems noted. Mother Pacemaker Hypertension Brother Hypertension Social History Social History Household Members: Children Housing: Apartment Do you presently have visiting nurse or other home services: No Patient Tobacco Use Status: Never used Tobacco e-Cigarette/Vaping Use: Never Used Substance Use Type: Marijuana service: No Sexual orientation: Straight/Heterosexual Physical Exam ED Vital Signs: Vital Signs - 24 hr 05/22/24 17:20 Temperature 98.4 F Pulse Rate 67 Respiratory Rate 18 Blood Pressure 108/77 Pulse Oximetry 97 Oxygen Delivery Method Room Air BMI result Body Mass Index 42.1 Appearance: Alert. Oriented X3. No acute distress. Head: normocephalic, atraumatic. Eyes: Pupils equal, round and reactive to light. ENT: Pharynx normal. No tonsillar swelling or exudate. Neck: Normal inspection. Neck supple. CVS: Normal heart rate and rhythm. Pulses normal. Respiratory: No respiratory distress. Breath sounds normal. Abdomen: Obese, soft and nontender. +BS x4 Skin: Skin warm and dry. Normal skin color. Normal skin turgor. No rashes. Extremities: No lower extremity edema. No joint swelling. Neuro/psych: Oriented X 3. grossly normal nonfocal Course Course Course Narrative: This is a Rapid Medical Examination (RME) performed by El Gifford PA-C in triage. Full HPI, ROS, assessment and treatment plan per primary provider in the Main ED. 39 yo female with history of morbid obesity s/p gastric bypass in 2019 at [facility] who presents to the ER for evaluation of fever, cough, N/V/D, and abdominal pain for the last 4 days. Reports burning abdominal pain mostly on the left side. No known sick contacts. Low grade fevers at home. VSS in triage. Abd soft in triage, mild tenderness throughout the left side. Plan: lab workup, UA, covid swab Medical Decision Making Medical Decision Making MDM Narrative: 39 yo female presenting with 4 days of fever, chills, diarrhea, cough, abd pain. exam is benign. vs are stable. lab workup done and shows no leukocytosis. electrolytes are within normal limits. she tested positive for COVID which explains her symptoms. no signs of dehydration. patient is stable for discharge with supportive care. bellstaff used to discuss dx, tx, return precauations Differential Diagnosis Differential Diagnoses: The differential diagnosis associated with the presentation includes strep, covid, flu, rsv, other viral syndrome, bronchitis, pneumonia, gastroenteritis Admission/Observation Consideration of admission/observation: Escalation of care including admission/observation considered Lab Data [facility] Lab Attestation statement: I reviewed the patient's lab results. no leukocytosis 05/22/24 17:52 05/22/24 17:52 Labs: Lab Results 05/22/24 05/22/24 Range/Units 17:51 17:52 WBC 6.1 (4.8-10.8) X10*3/uL RBC 4.08 L (4.20-5.50) X10*6/uL Hgb 12.7 (12.0-16.0) g/dl Hct 37.4 (37.0-47.0) % MCV 91.7 (80.0-98.0) fL MCH 31.1 (27.0-33.0) pg MCHC 34.0 (31.0-35.0) g/dl RDW 13.4 (11.0-16.0) % Plt Count 189 (160-400) X10*3/uL MPV 9.9 (9.4-12.3) fL Immature Gran % (Auto) 0.2 (0.0-0.4) % Neut % (Auto) 68.4 (45-73) % Lymph % (Auto) 18.5 L (20-40) % Hardy % (Auto) 12.7 H (2-11) % Eos % (Auto) 0.0 (0-4) % Baso % (Auto) 0.2 (0-2) % Lymph # (Auto) 1.1 L (1.2-4.9) X10*3/uL Hardy # (Auto) 0.8 (0.1-1.2) X10*3/uL Eos # (Auto) 0.0 (0.0-0.4) X10*3/uL Baso # (Auto) 0.0 (0.0-0.2) X10*3/uL Abs Immat Gran (auto) 0.01 (0.00-0.03) X10*3/uL Absolute Neuts (auto) 4.2 (2.0-8.3) x10*3/uL Absolute Nucleated RBC 0.000 (0.0-0.012) X10*3/uL Nucleated RBC % (auto) 0.0 (0.0-0.2) /100WBC Sodium 139 (135-145) mmol/L Potassium 3.4 (3.3-5.1) mmol/L Chloride 107 (96-108) mmol/L Carbon Dioxide 24 (22-29) mmol/L Anion Gap 11 L (12-20) BUN 11 (9-16) mg/dL Creatinine 0.67 (0.5-1.4) mg/dL Estim Creat Clear Calc 154.0 Estimated GFR > 60 Random Glucose 88 (60-115) mg/dL Calcium 8.6 (8.4-10.2) mg/dL Magnesium 2.1 (1.6-2.6) mg/dL Total Bilirubin 0.4 (0.0-1.0) mg/dL Direct Bilirubin 0.2 (0.0-0.5) mg/dL AST 11 (5-31) U/L ALT 14 (0-31) U/L Alkaline Phosphatase 65 (39-117) U/L Total Protein 6.3 L (6.5-8.0) g/dL Albumin 3.5 (3.5-5.0) g/dL Lipase 15 (8-78) U/L COVID-19 (ARPIT) Positive A (Negative) COVID-19 Clin Com See Note S. pyogenes GrpA JD Negative (Negative) External Record Review External record reviewed: Outpatient record, Prior outpatient labs and Prior outpatient radiology Tests considered The following testing was considered but not selected: cxr considered - lungs clear, oxygenating well Prescription Management I considered prescription management with: Antiviral Chronic Conditions Patient?s care impacted by: Other (obesity) Critical Care Time Critical Care Time Critical Care Time: No Discharge Plan Discharge Clinical Impression: COVID-19 Patient Disposition: Home, Self-Care Instructions: COVID-19 (Coronavirus Disease 2019) (ED) Additional Instructions: You were found to be COVID-19 POSITIVE today. Your workup and oxygen levels were normal. Rest. Drink plenty of fluids. Do not go out in public while you are not feeling well Take over the counter cold/flu medications as needed for your symptoms. Take Tylenol and/or Motrin as needed for fevers and body aches. Follow up with your doctor this week. If you develop new or worsening symptoms call 911 or come back to the ER for further evaluation. Prescriptions: No Action multivitamin Tablet 1 tab PO DAILY amitriptyline 25 mg tablet 25 mg PO BEDTIME 30 Days Qty: 30 0RF Rx Instructions: take with 100mg tab buspirone 10 mg Tablet 10 mg PO TID 30 Days Qty: 110 0RF Rx Instructions: may take 1 tab daily prn for anxiety trazodone 50 mg Tablet 50 mg PO BEDTIME PRN (Reason: Insomnia) 30 Days Qty: 30 0RF lidocaine [Lidocaine Pain Relief] 4 % Adhesive Patch,Medicated 1 patch transdermal DAILY Qty: 0 0RF Protocol: Apply to: Apply to: back gabapentin 600 mg tablet 600 mg PO TID 30 Days Qty: 90 0RF sertraline 100 mg tablet 200 mg PO DAILY 30 Days Qty: 60 0RF oxcarbazepine 300 mg tablet 300 mg PO DAILY@1400 30 Days Qty: 30 0RF pantoprazole 40 mg tablet,delayed release (DR/EC) 40 mg PO DAILY 30 Days Qty: 30 0RF oxcarbazepine 600 mg tablet 600 mg PO BID 30 Days Qty: 60 0RF amitriptyline 100 mg tablet 100 mg PO BEDTIME 30 Days Qty: 30 0RF Rx Instructions: take w/ 25mg tab Artificial Tears(ev-ikto-ugbo) 1-0.2-0.2 % drops 1 drp ophthalmic (eye) BID PRN (Reason: dry eyes) 30 Days Qty: 15 0RF ondansetron 4 mg tablet,disintegrating 4 mg PO Q6-8H PRN (Reason: nausea and vomiting) Qty: 14 0RF prednisone 20 mg tablet 60 mg PO DAILY 7 Days Qty: 21 0RF valacyclovir 1 gram tablet 1,000 mg PO Q8H 7 Days Qty: 21 0RF Print Language: Burkinan
[2024-05-22 17:57] LABS: MANUAL DIFF FLAG NO
[2024-05-22 18:01] LABS: Basophils Percent Auto 0.2 % (0-2); Hematocrit 37.4 % (37.0-47.0); Hemoglobin 12.7 g/dl (12.0-16.0); Imm Gran Abs Auto 0.01 X10*3/uL (0.00-0.03); Imm Gran Pct Auto 0.2 % (0.0-0.4); Lymphocytes Absolute Auto 1.1 X10*3/uL (1.2-4.9); Lymphocytes Percent Auto 18.5 % (20-40); Mean Corpuscular Hemoglobin 31.1 pg (27.0-33.0); Mean Corpuscular Volume 91.7 fL (80.0-98.0); Mean Platelet Volume 9.9 fL (9.4-12.3); Monocytes Absolute Auto 0.8 X10*3/uL (0.1-1.2); Monocytes Percent Auto 12.7 % (2-11); Neutrophils Absolute Auto 4.2 x10*3/uL (2.0-8.3); Neutrophils Percent Auto 68.4 % (45-73); Platelet Count 189 X10*3/uL (160-400); Red Blood Count 4.08 X10*6/uL (4.20-5.50); Red Cell Distribution Width 13.4 % (11.0-16.0); White Blood Count 6.1 X10*3/uL (4.8-10.8)
[2024-05-22 18:10] LABS: IDNOW Serial# 08D9AD1C; Strep A Nucleic Acid Negative (Negative)
[2024-05-22 18:13] LABS: Alanine Aminotransferase 14 U/L (0-31); Albumin Level 3.5 g/dL (3.5-5.0); Alkaline Phosphatase 65 U/L (39-117); Anion Gap 11 (12-20); Aspartate Amino Transferase 11 U/L (5-31); Bilirubin Direct 0.2 mg/dL (0.0-0.5); Bilirubin Total 0.4 mg/dL (0.0-1.0); Blood Urea Nitrogen 11 mg/dL (9-16); Calcium 8.6 mg/dL (8.4-10.2); Carbon Dioxide 24 mmol/L (22-29); Chloride 107 mmol/L (96-108); Estimated Glomerular Filt Rate > 60; Glucose Random 88 mg/dL (60-115); Lipase 15 U/L (8-78); Magnesium 2.1 mg/dL (1.6-2.6); Potassium 3.4 mmol/L (3.3-5.1); Sodium 139 mmol/L (135-145); Total Protein 6.3 g/dL (6.5-8.0)
[2024-05-22 18:15] LABS: COVID-19 Test Positive (Negative); IDNOW Serial# 152EDE1D
--- NOTE | 2024-05-22 18:24 | PC.NURSE ---
PT WAS SEEN AND RESULTS REVIEWED BY TRIAGE PROVIDER FOR DISCHARGE
[2024-05-22 18:33] VITALS: BP 110/74; PULSE 71; RESP 18; TEMP 36.6; O2SAT 98
== END 2024-05-22 18:33 | disposition home or self-care (01) ==
PROVIDERS: Physician Assistant; Emergency Provider Emergency Medicine Emergency Medical Services
DX: U07.1 COVID-19 (principal); R50.9 Fever, unspecified
CPT/HCPCS: 80048; 80076; 83690; 83735; 85025; 87635; 87651; 99282; 99283

== ENCOUNTER → 2024-11-17 15:36 | Outpatient (BNV) | payer OTHER, SELFPAY | PROVIDERS: Visit Provider Radiology Diagnostic Radiology | DX: R05.9 Cough, unspecified (principal) | CPT/HCPCS: 71045 ==

== ENCOUNTER 2025-07-03 15:16 | Outpatient (AMB) | payer OTHER, SELFPAY ==
[2025-07-03 15:21] VITALS: BP 118/60; PULSE 60; BMI 41.8
--- NOTE | 2025-07-03 15:21 | MHC.OFFVIS ---
Vital Signs 07/03/25 15:21 Height 5 ft 7 in Weight 266 lb 12.149 oz BMI 41.8 BP 118/60 Blood Pressure Location Lt brachial Position Sitting Pulse 60 Pulse Source Monitor Intake Visit Reasons: low bp concerns dr richard pt Veneer Department Manager Required: Yes Veneer Department Manager Name: ANKUSH [phone] Allergies morphine Allergy (Intermediate, Verified 11/17/24 15:34) Unknown Medication List - Last Reconciled 07/03/25 by Ti Mcgowan NP buspirone 10 mg PO TID 30 days gabapentin 600 mg PO TID 30 days lidocaine 4% (Lidocaine Pain Relief) 1 patch See Protocol transdermal DAILY multivitamin 1 tab PO DAILY oxcarbazepine 600 mg PO BID 30 days pantoprazole 40 mg PO DAILY 30 days peg [id number] 1-0.2-0.2 % (Artificial Tears ([id number])) 1 drp ophthalmic (eye) BID PRN 30 days sertraline 200 mg (2 x 100 mg) PO DAILY 30 days trazodone 50 mg PO BEDTIME PRN 30 days HPI Comments Details: This is a 40-year-old female patient coming in for complaints of shortness of breath, palpitations, and low blood pressures. Patient was seen in the office about 3 years ago for similar concerns of low blood pressures and chest discomfort for which patient underwent an echocardiogram that was normal. 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 Patient also notes that she has been getting shortness of breath with exertion, palpitations and dizziness. Patient is denying any exertional chest pain, orthopnea, PND, leg edema, presyncope, or syncope. Patient states that she noted her blood pressures were lower after taking medications previously but now it does not seem to matter whether she takes her medications are not and there randomly low. [facility] Medical History Chronic post-traumatic stress disorder (PTSD) MDD (major depressive disorder), recurrent episode, moderate Castanon's palsy Adjustment disorder with mixed anxiety and depressed mood Surgical History History of foot surgery History of bariatric surgery Family History Father No problems noted. Mother Pacemaker Hypertension Brother Hypertension Social History Household Members: Children Housing: Apartment Do you presently have visiting nurse or other home services: No Patient Tobacco Use Status: Never used Tobacco e-Cigarette/Vaping Use: Never Used Substance Use Type: Marijuana service: No Sexual orientation: Straight/Heterosexual Review of Systems Const Reports fatigue and Denies weakness ENT Denies dizziness Card Denies chest pain, Denies chest pain with activity, Denies syncope, Denies rapid heart rate, Denies pedal edema, Denies edema, Denies leg edema, Denies lightheadedness, Denies palpitations, Denies dyspnea, Denies dyspnea on exertion and Denies orthopnea Resp Denies cough, Denies dyspnea and Denies dyspnea on exertion GI Denies hematochezia and Denies change in stool character Musc Denies abnormal gait, Denies muscle cramps, Denies muscle weakness, Denies numbness, Denies radiating pain into limb and Denies tingling Neuro Denies abnormal gait, Denies dizziness, Denies syncope, Denies numbness, Denies tingling and Denies weakness Endo Reports fatigue and Denies palpitations Physical Exam Vital Signs: Last Vital Signs Pulse 60 07/03/25 15:21 BP 118/60 07/03/25 15:21 BMI result Body Mass Index 41.8 Const General: cooperative, healthy appearing, comfortable and no acute distress Orientation/consciousness: patient oriented x3 HEENT Head: Yes normal to inspection Neck Neck: Yes normal visual inspection, Yes trachea midline and Yes supple Chest Chest palpation & inspection: normal inspection of the chest Resp Effort & Inspection: normal respiratory effort Auscultation: clear to auscultation bilaterally, no crackles, no rales, no rhonchi and no wheezes Cardio Jugular venous distension: no JVD Palpation: normal PMI Rate: regular rate Rhythm: regular rhythm Heart sounds: S1 normal heart sound present, S2 normal heart sound present, no click, no gallops, no murmurs and no rubs Peripheral pulses: Peripheral pulses 2+ throughout GI Inspection: Yes normal to inspection Palpation (GI): Soft to palpation Auscultation: normal bowel sounds Skin General skin exam: no rashes or lesions noted Neuro General: patient oriented x3 Extrem General: Yes normal to inspection, No no pedal edema and No calf tenderness Psych Appearance: grossly normal Mental Status: mental status grossly normal Speech and movement: Normal speech and movement present Office Procedures EKG Details: EKG today showed normal sinus rhythm, rate 60 beats per minute, [place], [place]. [id number], Complete Assessment & Plan Assessment & Plan (1) Arterial hypotension: Code(s): I95.9 - Hypotension, unspecified Category: Medical Plan: 08/11/2022-echo study showed a normal LV systolic function with an ejection fraction between 55-60% with mildly elevated right atrial pressure. Even though we have no records of low blood pressures, patient states that her blood pressures can be as low as 60/40. Blood pressure today is within normal limits. We will prescribe her a blood pressure machine to take home and monitor her blood pressures. Advised to maintain a log of it to bring to her next visit. Advised adequate hydration. We will proceed with an echo and a stress echo to look for ischemic changes as well structural abnormalities. And given her reports of palpitations, we will get a Holter study to look for potential arrhythmias. (2) SOB (shortness of breath) on exertion: Code(s): R06.02 - Shortness of breath Category: Medical Plan: As above. (3) Palpitations: Code(s): R00.2 - Palpitations Category: Medical Plan: As above. (4) Morbid obesity: Code(s): E66.01 - Morbid (severe) obesity due to excess calories Category: Medical Plan: As above. Advised heart healthy diet, regular exercise, losing weight, adequate hydration, and monitoring of her blood pressures. Follow up after completion of testings. In the interim, patient will call the office with any concerns or change in symptoms. This note was generated using voice recognition software. While every effort has been made to ensure accuracy and proper radio electronics officer, there may be occasional errors that could affect the content or meaning of the described symptoms. Orders: Orders ECG 3 day holter monitor Today R00.2 - Palpitations CA echo stress exercise Today R06.02 - Shortness of breath CA echo transthoracic complete Today R06.02 - Shortness of breath, R42 - Dizziness and giddiness AMB EKG-In Office Today R00.2 - Palpitations Medications: New blood pressure kit-extra large As directed 1 ea 0RF I95.9 - Hypotension, unspecified Coding Level of Care Code Est Pt Level 4 (47849) Complex EM visit Add On G2211 Diagnoses Arterial hypotension I95.9 SOB (shortness of breath) on exertion R06.02 Palpitations R00.2 Morbid obesity E66.01 CPT Codes EKG - CPT: [id number], Complete ([id number]) Time Spent (min) 34 Comment Time spent in reviewing the chart, test results, assessment, counseling and documentation.
== END 2025-07-03 16:04 | disposition home or self-care (01) ==
DX: I95.9 Hypotension, unspecified (principal); R06.02 Shortness of breath; R00.2 Palpitations; E66.01 Morbid (severe) obesity due to excess calories
CPT/HCPCS: 93010; 99214; G2211

== ENCOUNTER → 2025-07-03 15:16 | Outpatient (BNVA) | payer OTHER, SELFPAY | DX: R00.2 Palpitations (principal); R06.02 Shortness of breath; I95.9 Hypotension, unspecified; E66.01 Morbid (severe) obesity due to excess calories; R42 Dizziness and giddiness | CPT/HCPCS: 93005; 99212 ==

== ENCOUNTER 2025-07-21 22:54 | Emergency (ER) | payer OTHER, SELFPAY ==
--- NOTE | ~2025-07-21 | XR_ITS ---
CLINICAL HISTORY: cp 1 view chest x-ray Comparison: CR/SR - XR CHEST 1 VIEW - 11/17/24 16:28 EST Findings: Low lung volumes. No focal infiltrate. No effusion or pneumothorax. Heart size is normal. No acute fracture. IMPRESSION: 1. No acute findings. This document has been electronically signed by: Percy Murray MD on 07/22/2025 02:38:05
--- NOTE | 2025-07-21 22:58 | ECG_ITS ---
Test Reason : CHEST PAIN Blood Pressure : */* mmHG Vent. Rate : 53 BPM Atrial Rate : 53 BPM P-R Int : 144 ms QRS Dur : 74 ms QT Int : 432 ms P-R-T Axes : 30 5 19 degrees QTcB Int : 405 ms Sinus bradycardia Otherwise normal ECG When compared with ECG of 14-Apr-2024 15:14, No significant change was found Referred By: Generic ED Physician Electronically Signed By: PATRIZIA HERNANDEZ MD
[2025-07-21 23:22] LABS: MANUAL DIFF FLAG NO
[2025-07-21 23:23] VITALS: BP 105/52; PULSE 59; RESP 18; TEMP 36.5; O2SAT 100; BMI 41.7
[2025-07-21 23:23] LABS: Hematocrit 37.1 % (37.0-47.0); Hemoglobin 12.9 g/dl (12.0-16.0); Imm Gran Abs Auto 0.01 X10*3/uL (0.00-0.03); Imm Gran Pct Auto 0.1 % (0.0-0.4); Lymphocytes Absolute Auto 2.6 X10*3/uL (1.2-4.9); Mean Corpuscular HGB Conc 34.8 g/dl (31.0-35.0); Mean Corpuscular Hemoglobin 32.0 pg (27.0-33.0); Mean Corpuscular Volume 92.1 fL (80.0-98.0); NRBC Abs Auto 0.000 X10*3/uL (0.0-0.012); NRBC Pct Auto 0.0 /100WBC (0.0-0.2); Platelet Count 208 X10*3/uL (160-400); Red Blood Count 4.03 X10*6/uL (4.20-5.50); White Blood Count 6.9 X10*3/uL (4.8-10.8)
[2025-07-21 23:34] LABS: Anion Gap 11 (12-20); Blood Urea Nitrogen 21 mg/dL (9-16); Calcium 8.7 mg/dL (8.4-10.2); Carbon Dioxide 27 mmol/L (22-29); Chloride 109 mmol/L (96-108); Creatinine Clr Calc Pharmacy 161.4; Estimated Glomerular Filt Rate > 60; Potassium 4.6 mmol/L (3.3-5.1); Sodium 142 mmol/L (135-145)
[2025-07-21 23:42] LABS: Troponin-I High Sensitivity < 2.7 ng/L (<3.5-17.0)
[2025-07-22 00:04] VITALS: BP 108/49; PULSE 53; RESP 13; TEMP 36.6; O2SAT 98
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
--- OUTSIDE RECORDS SUMMARY | 2025-07-22 01:32 | XMS_ITS | Clinical Summary ---
Author Organization Patient Business Ser [facility] Address [address] [place] [address] Care Team Providers Care C++ Professor Name Role Phone Christian Villaseñor MD Primary Care Provider [phone] Allergies Active Allergy Reactions Criticality Noted Date Comments Morphine 07/01/2019 Medications ALBUTEROL SULFATE ORAL Take by mouth. Ac tive UNABLE TO FIND Inhale into the lungs. Active ETONOGESTREL SDRM Inject into the skin. Active GABAPENTIN, BULK, MISC Take by mouth. Acti ve fluticasone propionate (FLONASE) 50 mcg/actuation nasal spray Administer 1 spray into each nostril 2 (two) times a day. 06/18/20 22 Active ONDANSETRON ORAL Take 4 mg by mouth every 8 hours as needed (nausea). 09/01/20 22 Active OXCARBAZEPINE ORAL Take by mouth. Activ e WHEAT DEXTRIN ORAL Take 4 g by mouth daily. 09/01/20 22 Active acetaminophen (TYLENOL) 500 mg tablet Take 2 Tablets by mouth every 8 hours for 30 days. 09/01/20 22 Active amitriptyline (ELAVIL) 100 mg tablet TAKE 1 TABLET BY MOUTH EVERY NIGHT AT BEDTIME WITH 25 MG TABLET 07/12/20 22 Active amitriptyline (ELAVIL) 25 mg tablet TAKE 1 TABLET BY MOUTH EVERY DAY ALONG WITH 100MG 07/31/20 22 Active busPIRone (BUSPAR) 10 mg tablet TAKE 1 TABLET BY MOUTH THREE TIMES DAILY 07/19/20 22 Active cetirizine (ZyrTEC) 10 mg tablet Take 10 mg by mouth. 09/26/20 21 Active cholecalciferol (VITAMIN D-3) 1,250 mcg (50,000 unit) capsule TAKE 1 CAPSULE BY MOUTH 1 TIME A WEEK 01/02/20 Active ferrous sulfate 325 mg (65 mg iron) EC tablet Take 1 tablet (325 mg total) by mouth 1 (one) time each day. 01/02/20 Active HYDROmorphone (DILAUDID) 2 mg tablet Take 1 tablet every 4 hours as needed moderate pain. 09/05/20 Active lidocaine (LIDODERM) 5 % patch APPLY 1 PATCH TOPICALLY TO THE SKIN DAILY NEEDED FOR MILD PAIN REMOVE AFTER 12 HOURS 07/31/20 Active medroxyPROGESTE Cr (PROVERA) 10 mg tablet TAKE 1 TABLET BY MOUTH DAILY FOR FIRST 10 DAYS EACH MONTH 07/21/20 Active ondansetron (ZOFRAN) 4 mg tablet Take 1 tablet (4 mg total) by mouth every 8 (eight) hours if needed. 12/19/19 Active peg 400-hypromellos e-glycerin 1-0.2-0.2 % drops USE 1 DROP IN BOTH EYES TWICE DAILY NEEDED FOR DRY EYES 06/18/20 Active polyethylene glycol (MIRALAX) 17 gram packet Take 1 Packet by mouth daily as needed for Constipation for up to 14 days. 09/01/20 Active rivaroxaban (Xarelto) 10 mg tablet Take 10 mg by mouth daily. Take with food. 09/04/20 Active sertraline (ZOLOFT) 100 mg tablet Take 100 mg by mouth daily. Active simethicone (MYLICON) 80 mg chewable tablet Take 1 Tablet by mouth every 6 hours as needed for Flatulence for up to 30 days. 01/02/20 Active traZODone (DESYREL) 50 mg tablet Take 1 tablet (50 mg total) by mouth at bedtime as needed. 07/19/20 Active ursodioL (ACTIGALL) 300 mg capsule Take 2 Capsules by mouth daily for 180 days. 09/01/20 Active topiramate (Topamax) 50 mg tablet Take 1 tablet (50 mg total) by mouth at bedtime. 30 each 2 06/11/20 25 025 Active pantoprazole (PROTONIX) 40 mg EC tabletIndicatio ns:Gastroesopha geal reflux disease, unspecified whether esophagitis present Take 1 tablet (40 mg total) by mouth 1 (one) time each day. 30 each 2 06/11/20 25 025 Active tirzepatide, weight loss, (Zepbound) 2.5 mg/0.5 mL injectionIndica tions:Class 3 severe obesity due to excess calories with body mass index (BMI) of 40.0 to 44.9 in adult, unspecified whether serious comorbidity present ([facility] V24, [facility] V28) Inject 0.5 mL (2.5 mg total) under the skin every 7 (seven) days for 4 doses. 2 mL 07/04/20 25 025 Active phentermine 15 mg capsule Take 1 capsule (15 mg total) by mouth 1 (one) time each day before breakfast. Max Daily Amount: 15 mg 30 each 06/11/20 25 025 Discontin ued(Side effects) Active Problems Problem Noted Date Diagnosed Date Arthritis 09/30/2024 SARITA (obstructive sleep apnea) 09/30/2024 Class 3 severe obesity due t o excess calories with body mass index (BMI) of 50.0 to 59.9 in adult ([facility] V24, [facility] V28) 09/30/2024 Fibromyalgia 08/06/2020 Iron deficiency 07/12/2019 Vitamin D deficiency 07/12/2019 Encounters Date Type Department Care Team Description 07/14/2025 Telephone Bariatric Surgery [address] [phone] Alpa Curiel MD 07/01/2025 Telephone Bariatric Surgery [address] [phone] Alpa Curiel MD 06/12/2025 Telephone Bariatric Surgery [address] [phone] Corry Casas MA 06/11/2025 9:45 AM EDT Office Visit Bariatric Surgery [address] [address] Alpa Curiel MD Class 3 severe obesity due to excess calories with body mass index (BMI) of 40.0 to 44.9 in adult, unspecified whether serious comorbidity present ([facility] V24, [facility] V28) (Primary Dx); Nausea and vomiting, unspecified vomiting type; Postoperative intestinal malabsorption; Gastroesophageal reflux disease, unspecified whether esophagitis present from Last 3 Months Immunizations Name Administration Dates Next Due H1N1 Inj Preservative Free 08/21/2019 Tdap Tetanus diptheria acell ular pertussis (Boostrix; Adacel) 7yo and older 02/20/2018 Surgical History Surgery Date Site/Laterality Comments OTHER SURGICAL HISTORY PROCEDURE: DENIES PREVIOUS SURGERY Medical History Medical History Date Comments Anxiety DX:Anxiety Depression DX:Depression Insomnia DX:Insomnia Diabetes ([facility] V24, [facility] V28) DX:Diabetes ([facility]) Constipation DX:Constipation Asthma DX:Asthma SARITA (obstructive sleep apnea) DX :SARITA (obstructive sleep apnea) Arthritis DX:Arthritis Fibromyalgia 08/06/2020 DX:Fibromyalgia History of ankle fracture 08/06/2020 DX:His tory of ankle fracture; COMMENT: 04/30 left medial malleolus Family History Medical History Relation Name Comments Hypertension Father Hypertension Mother Relation Name Status Comments Father Mother Social History Tobacco Use Types Packs/Day Years Used Date Smoking Tobacco: Never Smokeless Tobacco: Never Alcohol Use Standard Drinks/Week Comments No 0 (1 standard drink = 0.6 oz pur e alcohol) Comments Unknown Sex and Gender Information Value Date Recorded Sex Assigned at Not on file Legal Sex Female 11:57 PM EDT Gender Identity Not on file Sexual Orientation Not on file Obstetrics History Last Filed Vital Signs Vital Sign Reading Time Taken Comments Blood Pressure 99/64 06/11/2025 9:47 AM EDT Pulse 71 06/11/2025 9:47 AM EDT Temperature 36.4 C (97.6 F) 06/11/2025 9:47 AM EDT Respiratory Rate - - Oxygen Saturation - - Inhaled Oxygen Concentration - - Weight 119 kg (262 lb) 06/11/2025 9:47 AM EDT Height 170.2 cm (5' 7 ) 06/11/2025 9:47 AM EDT Body Mass Index 41.04 06/11/2025 9:47 AM EDT Plan of Treatment Upcoming Encounters Date Type Department Care Team (Late st Contact Info) Description 09/29/2025 9:15 AM EST Office Visit Bariatric Surgery - [address] [place] [address] Alpa Curiel MD [address] [place] [address] Health Maintenance Due Date Last Done Comments Pneumococcal Vaccine: Pediatrics (0 to 5 Years) and At-Risk Patients (6 to 49 Years) (1 of 2 - PCV) 2005 Cervical Cancer Screening: Pap Smear 2007 HIV Screening 07/16/2020 Hepatitis C Screening 07/16/2020 Social Influencers of Health Screening 07/16/2020 Cholesterol Screening (Lipid Panel) 07/09/2024 07/09/2019 Depression Screening 11/12/2024 Hepatitis B Vaccines (2 of 2 - CpG 2-dose series) 06/08/2025 05/11/2025 COVID-19 Vaccine ( - season) 2025 09/06/2022, 09/26/2021, 03/01/2021, Additional history exists Influenza Vaccine (#1) 2025 2, 09/26/2021, 08/03/2020, Additional history exists DTaP,Tdap,and Td Vaccines (2 - Td or Tdap) 02/21/2028 02/20/2018 HIB Vaccines Aged Out No longer eligi ble based on patient's age to complete this topic HPV Vaccines Aged Out No longer eligi ble based on patient's age to complete this topic Hepatitis A Vaccines Aged Out No long er eligible based on patient's age to complete this topic IPV Vaccines Aged Out No longer eligi ble based on patient's age to complete this topic MMR Vaccines Aged Out No longer eligi ble based on patient's age to complete this topic Meningococcal ACWY Vaccine Aged Out N o longer eligible based on patient's age to complete this topic Meningococcal B Vaccine Aged Out No l onger eligible based on patient's age to complete this topic RSV Immunization Patients Under 20 months Aged Out No longer eligible based on patient's age to complete this topic Varicella Vaccines Aged Out No longer eligible based on patient's age to complete this topic Procedures Procedure Name Priority Date/Time Associated Diagnosis Comments LIPID PANEL Routine 07/09/2019 from Last 3 Months or Most Recently Relevant to Health Maintenance Results * Lipid panel (07/09/2019) LDL/HDL Ratio 3 0 - 4 Triglycerides 45 0 - 150 mg/dL Cholesterol 143 0 - 200 mg/dL HDL 43 >=40 mg/dL LDL Cholesterol 91 0 - 100 mg/dL Blood Venous blood specimen / Unknown Historical Provider LAB BLOOD ORDERABLES Claire l Result from Last 3 Months or Most Recently Relevant to Health Maintenance Insurance [employer] Care Teams C++ Professor Relationship Specialty Start Date End Date Christian Villaseñor MD [address] [place] [phone] PCP - General 01/26/18
[2025-07-22 01:33] LABS: Troponin-I High Sensitivity < 2.7 ng/L (<3.5-17.0)
[2025-07-22 02:06] VITALS: BP 139/66; PULSE 52; RESP 19; TEMP 36.7; O2SAT 99
[2025-07-22 02:20] VITALS: BP 139/66; PULSE 52; RESP 19; TEMP 36.7; O2SAT 99
== END 2025-07-22 02:21 | disposition home or self-care (01) ==
PROVIDERS: Emergency Provider Emergency Medicine Emergency Medical Services
DX: R07.89 Other chest pain (principal); R51.9 Headache, unspecified
CPT/HCPCS: 36415; 71045; 80048; 84484; 85025; 93005; 96361; 96374; 96375; 99284; 99285; J1200; J1885; J2765

== ENCOUNTER → 2025-07-21 22:58 | Outpatient (BNV) | payer OTHER, SELFPAY | PROVIDERS: Emergency Provider Emergency Medicine Emergency Medical Services; Visit Provider Internal Medicine Cardiovascular Disease | DX: R00.1 Bradycardia, unspecified (principal) | CPT/HCPCS: 93010 ==

== ENCOUNTER → 2025-07-22 01:01 | Outpatient (BNV) | payer OTHER, SELFPAY | PROVIDERS: Emergency Provider Emergency Medicine Emergency Medical Services; Visit Provider Radiology Diagnostic Radiology | DX: R07.89 Other chest pain (principal) | CPT/HCPCS: 71045 ==

== ENCOUNTER → 2025-08-07 10:10 | Outpatient (REF) | payer OTHER, SELFPAY ==
--- NOTE | 2025-08-07 10:13 | CA_ITS ---
Transthoracic Echocardiogram Patient (Last, First, Middle): Alex Shin, Gender: Female Date of : 1985 Age: 40 Procedure Date: 08/07/2025 Procedure Type: Transthoracic Echocardiogram Location: OP Height: 170.18 cm Weight: 117.94 kg BSA: 2.26 m2 Heart Rate: bpm BP: 100 / 60 mmHg Residential Air Sealing Technician: TO Referring MD: Ti Mcgowan CASHIER SUPERVISOR Symptoms: R06.02 - Shortness of breath Study Quality: Adequate with contrast Conclusions: - Normal left ventricular size, thickness, systolic function, and wall motion. The visually estimated ejection fraction is between 55-60%. Diastolic function is normal for age. - Normal right ventricular cavity size and systolic function. Findings Procedure Information Contrast agent, definity, is being given per protocol without apparent complications. Left Ventricle Normal left ventricular size, thickness, systolic function, and wall motion. The visually estimated ejection fraction is between 55-60%. Diastolic function is normal for age. Right Ventricle Normal right ventricular cavity size and systolic function. Atria Both atria are normal in size. Aortic Valve Normal aortic valve structure and function. There is no aortic valve stenosis. There is no aortic valve regurgitation. Mitral Valve Normal mitral valve structure and function. There is no mitral valve regurgitation. There is no mitral valve stenosis. Pulmonic Valve The pulmonic valve is likely normal. Tricuspid Valve Normal tricuspid valve structure. There is no tricuspid valve regurgitation. Normal right atrial pressure. There is no evidence of pulmonary hypertension. Great Vessels All visible segments of the aorta are normal in size. The visualized portions of the pulmonary artery and branches are normal. Venous The inferior vena cava is normal in size and collapses greater than 50% with inspiration. Pericardium/Pleural There is no evidence of pericardial effusion. Prior Study Comparison No significant change compared to prior study dated: 08/11/2022. Measurements 2D Linear Measurements IVSd: 0.76 0.6-0.9/0.6-1.0 cm LVIDd: 5.55 3.9-5.3/4.2-5.9 cm LVIDd Index: 2.46 2.4-3.2/2.2-3.1 cm/m2 LVIDs: 3.61 2.0-3.6 cm LVPWd: 0.83 0.7-1.1 cm LV Mass: 201.56 67-162/88-224 g LV Mass Index: 89.18 43-95/49-115 g/m2 LVOT Diam: 2.20 3.0+(-)1.3 cm 2D Systolic Function EF 4C: 54.80 >55% EF 2C: 53.40 >55% EF BiP: 53.80 >55% Mitral Valve MV Pk E: 0.71 MV PK A: 0.27 MV Decel Time: 321.00 E/A: 2.60 E'Lateral: 14.80 E'Medial: 8.38 E/E' Med: 8.50 E/E' Lat: 4.80 PHT: 94.00 MVA PHT: 2.34 Decel [place]: 2.21 Aortic Valve AoV Pk Rc: 1.36 AoV Mn Rc: 0.94 AoV VTI: 0.33 AoV Pk Grad: 7.00 Aov Mn Grad: 4.00 PEGGY Cont.VTI: 2.48 LVOT LVOT Pk Rc: 1.03 LVOT Mn Rc: 0.67 LVOT VTI: 0.21 LVOT Pk Grad: 4.00 LVOT Mn Grad: 2.00 LVOT Diam: 2.20 LVOT Area: 3.80 Diastolic Function MV Pk E: 0.71 MV Pk A: 0.27 E/A: 2.60 E'Medial: 8.38 E/E' Med: 8.50 E' Laterial: 14.80 E/E' Lat: 4.80 Right Ventricle TAPSE (mm): 21.90 TVS' Rc: 10.40 Tricuspid Valve RA Press: 3.00 Great Vessels Aorta Sinus of Valsalva: 3.17 2.0-3.5 cm Ao Asc: 2.90 2.1-3.4 cm Pulmonary Veins Pulm Vein S/D 0.80 Updated in Other Vendor System with Status of Final Jean Marie Do MD electronically signed on 08/09/2025 11:08:27 PM with status of Final
--- NOTE | 2025-08-07 10:13 | HM_ITS ---
Conclusion: 1. Patient was monitored for total period of 5 days and 9 hours 2. Baseline was normal sinus rhythm with average heart of 68 beats per minute 3. No significant arrhythmias or pauses noted 4. No patient reported events MTDD
--- OUTSIDE RECORDS SUMMARY | 2025-08-07 11:26 | XMS_ITS | Clinical Summary ---
Author Organization [facility] Address [address] [place] [address] Care Team Providers Care Supply Service Worker Name Role Phone Unavailable Primary Care Provider Unavailabl e Source Comments PLEASE NOTE, if this patient is a minor, it may be UNLAWFUL to discuss sensitive information that is contained in these records (such as FAMILY PLANNING, MENTAL HEALTH or SUBSTANCE ABUSE) with the minor patient's parent or other person without the patient's specific authorization.[facility] Allergies Active Allergy Reactions Criticality Noted Date Comments Morphine Rash 04/07/2022 Medications poly vi juan (MULTIVITAMINS WITH FLUORIDE) 0.5 mg per chewable tablet Place 1 Tablet into mouth, chew and swallow once daily Active sertraline HCl (ZOLOFT ORAL) Take by mouth Ac tive fluticasone propion-salmete roL (ADVAIR) 100-50 mcg/dose diskus inhaler Inhale 1 Puff into the lungs 2 (two) times daily Active albuterol sulfate (PROAIR DIGIHALER INHL) Inhale into the lungs Active amitriptyline (ELAVIL) 10 mg tablet Take 10 mg by mouth nightly at bedtime Active medroxyPROGESTE Cr (PROVERA) 10 mg tablet Take 10 mg by mouth once daily Active lidocaine 1.8 % ptmd Apply topically Active OXcarbazepine (TRILEPTAL) 300 mg tablet Take 300 mg by mouth 2 (two) times daily Active sertraline 200 mg cap Take by mouth Active amoxicillin (AMOXIL) 250 mg capsule Take 250 mg by mouth 1 to 2 (one to two) times daily Active Active Problems Problem Noted Date Diagnosed Date Fatigue 04/21/2022 Immunizations Immunization Administration Dates Next Due Moderna COVID-19 Vaccine, re d cap blue label, 12+ Primary Series 03/01/2021,01/31/2021 Social History Tobacco Use Types Packs/Day Years Used Date Smoking Tobacco: Never Passive Smoke Exposure: Never Smokeless Tobacco: Never Tobacco Cessation:Counseling Given: Not Answered Social Connections Answer Date Recorded Connectedness 0 07/25/2024 Financial Resource Strain Answer Date R ecorded Financial Resource Strain 0 2021 Stress Answer Date Recorded Stress 0 03/28/2022 Physical Activity Answer Date Recorded Physical Activity 0 03/28/2022 Food Insecurity Answer Date Recorded Food 0 08/07/2024 Transportation Needs Answer Date Record ed Transportation 0 03/28/2022 Housing Stability Answer Date Recorded Housing 0 03/28/2022 Safety and Environment Answer Date Mike rded Safety 0 03/28/2022 Utilities Answer Date Recorded Utilities 0 03/28/2022 Employment Answer Date Recorded Stress 0 07/25/2024 Comments Unknown Sex and Gender Information Value Date Recorded Sex Assigned at Not on file Legal Sex Female 12:46 PM PDT Gender Identity Not on file Sexual Orientation Not on file Last Filed Vital Signs Vital Sign Reading Time Taken Comments Blood Pressure 116/70 07/25/2024 10:25 AM EDT Pulse 72 07/25/2024 10:25 AM EDT Temperature - - Respiratory Rate - - Oxygen Saturation - - Inhaled Oxygen Concentration - - Weight - - Height - - Body Mass Index - - Plan of Treatment Health Maintenance Due Date Last Done Comments Anxiety Screening 1986 Diabetes Screening 1986 HPV Screening 1986 Hepatitis C Screening 1986 Pap + HPV 1986 Tobacco Screening 1986 HIV Screening 2001 Relationship Safety Screening/Counseling 2001 Imm-Hepatitis B (1 of 3 - 19 + 3-dose series) 2005 Cervical Cancer Screening 2007 Pap Smear 2007 Imm-HPV (1 - 3-dose SCDM series) 2013 Alcohol and Drug Screen 11/12/2024 Depression Annual Screen 11/12/2024 [id number] ( season) 2025 09/06/2022, 09/26/2021, 03/01/2021, Additional history exists Imm-Influenza (#1) 2025 10/16/2022, 1 11/26/2020, 08/03/2020, Additional history exists Dental BW 07/27/2025 07/25/2024, 04/19/2022 Dental Examination 07/27/2025 07/25/2024 Dental Perio Charting 07/27/2025 07/25/2024 Dental Prophy 07/27/2025 07/25/2024, 07/19/2022 Dental FMX/Pano 04/21/2027 04/19/2022 Hypertension Screening (#1) 07/25/2027 Imm-DTaP/Tdap/Td (2 - Td or Tdap) 02/21/2028 018 Cervical Ablation/Cold-Knife Conization Discontinued Cervical Cryotherapy Discontinued Colposcopy Discontinued Endometrial Biopsy Discontinued Excision/Leep Discontinued HPV Genotyping Discontinued Vaginal Pap Discontinued Vulvoscopy Discontinued Procedures Procedure Name Priority Date/Time Associated Diagnosis Comments COMP PERIODONTAL EVALUATION - NEW/EST PATIENT Routine 07/25/2024 10:20 AM EDT Caries of enamel (incipient) Caries BITEWINGS - FOUR RADIOGRAPHIC IMAGES Routine 07/25/2024 10:20 AM EDT Caries of enamel (incipient) Caries PROPHYLAXIS - ADULT Routine 07/25/2024 1 0:20 AM EDT Caries of enamel (incipient) Caries PERIODIC ORAL EVALUATION ESTABLISHED PATIENT Routine 07/25/2024 10:20 AM EDT Caries of enamel (incipient) Caries INTRAORAL - COMP SERIES OF RADIOGRAPHIC IMAGES Routine 04/19/2022 9:40 AM EDT Caries from Last 3 Months or Most Recently Relevant to Health Maintenance Insurance [facility] [place]ICA[place] DENTAL [facility] [place] [id number]
--- OUTSIDE RECORDS SUMMARY | 2025-08-07 11:26 | XMS_ITS | Data Portability ---
Author Organization [facility], [facility] Address [address] [place] [address] Care Team Providers Care Networking Administrator Name Role Phone [facility] Primary Care Provider Assessment Encounter Date Assessment Date Assessment LastModified by Organization Details LastModified Time 02/27/2024 02/27/2024 I am seeing the patient today under the supervision of Dr. Trinidad who was available but who did not see the patient. HPI: Patient presents today follow-up regarding their Bi-lateral knee. They have had difficulty up and down stairs sitting standing. Previous injection gave good relief until recent. Problems ambulating. Gcdq-qgk-rtnlbdg medications are helping somewhat but not significantly. Pain is constant aching sometimes sharp pain with giving out sensations. Past family, medical, social history and review of systems has been reviewed, updated and is located in the patient s chart. Examination: The patient is well appearing and in no apparent distress. Alert and oriented x3. Gait is symmetric. Examination of the Bi-lateral knee reveals no evidence of any edema, erythema, or warmth. No Deformity. Range of motion of the knee limited with mild discomfort at the end ranges. Mild effusion. Does have some tenderness to palpation about the medial hemijoint line. No tenderness to palpation about the lateral hemijoint line. Patellofemoral crepitus is noted. mild lateral ligamentous laxity. Negative Meron s . Calf is supple and nontender. Neurovascularly intact distally. Impression: Bi-lateral Knee osteoarthritis Plan: We discussed the role of conservative management including medications, physical therapy, injection and bracing. At this point the patient was to proceed with injection. Please see procedure note. They will follow up with us as scheduled. jada Not available 02/27/2024 13:34:21 11/21/2024 11/21/2024 I am seeing the patient today under the supervision of Dr Trinidad who was available but who did not see the patient. Not available 11/21/2024 13:06:53 03/27/2025 03/27/2025 I am seeing the patient today under the supervision of Dr Trinidad who was available but who did not see the patient. Not available 03/27/2025 09:32:55 Plan of Treatment Reminders Order Date Submit Date Provider Last Modified By Organization Details Last Modified Time Details Appointments None record ed. Lab None record ed. Referral None record ed. Procedures None record ed. Surgeries None record ed. Imaging None record ed. Medication Orders None record ed. Patient TargetsNo targets recorded. Patient InstructionsNo instructions recorded. Reason for Referral None Reported. Results Created Date Observation Date Name Description Value Unit Range Abnormal Flag Note LastModifiedBy Organization Detail LastModifiedTime 07/11/2003/07/2023 imagi ng/di agnos tic resul t No observ ation record ed. [email or web address] Not Available 06/14 04:01:12 07/11/20 24 02/15/2023 imagi ng/di agnos tic resul t No observ ation record ed. [email or web address] Not Available 06/14 04:01:17 07/11/20 24 05/16/2019 imagi ng/di agnos tic resul t No observ ation record ed. [email or web address] Not Available 06/14 04:02:44 07/11/20 24 05/10/2019 imagi ng/di agnos tic resul t No observ ation record ed. [email or web address] Not Available 06/14 04:02:45 07/11/2008/28/2019 imagi ng/di agnos tic resul t No observ ation record ed. [email or web address] Not Available 06/14 04:02:47 07/11/20 24 08/28/2019 imagi ng/di agnos tic resul t No observ ation record ed. [email or web address] Not Available 06/14 04:02:48 07/11/20 24 08/05/2021 imagi ng/di agnos tic resul t No observ ation record ed. [email or web address] Not Available 06/14 04:02:58 Result Notes None recorded. Problems Name Problem SNOMED Code Status Onset Date Resolution Date Notes Provider Name and Address Organization Details Recorded Time No complaint s [id number] Active Status: 'I'; Not Available [facility] 4 09:24:28 Idiopathi c osteoarth ritis 768322404 Active 2017 Problem Code: M17.12; Problem Code Type: ICD-10; Status: 'A'; Not Available [facility] 4 11:57:23 Sprain of left ankle [id number] 78318 Active 2018 Problem Code: S93.492D ; Problem Code Type: ICD-10; Status: 'A'; Not Available [facility] 4 11:57:22 Bilateral osteoarth ritis of knees [id number] 107 Active 2023 SIOMARA MEDELLIN [facility] 4 07:42:29 Problem Notes None recorded. Procedures Surgical History Date Name Laterality Status Provider Name and Address Organization Details Recorded Time 5 JZKNEE INJ Sergio completed Lloyd Suarez PA-C [address], [place], [address], [facility] 03/27/2025 09:32:47 5 JZKNEE INJ Sergio completed Lloyd Suarez PA-C [address], [place], [address], [facility] 11/21/2024 13:06:32 4 JZKNEE INJ Sergio completed SIOMARA MEDELLIN [facility] 02/21/2024 07:42:28 2 Bariatric Surgery completed Sergey Mast [facility] 03/27/2025 09:22:04 Knee Surgery completed Sergey Mast [facility] 03/27/2025 09:22:04 Ankle/Foot Surgery completed Sergey Mast [place] - [facility] 03/27/2025 09:22:04 Imaging Results None recorded. Procedure Notes None recorded. Medical Equipment None Reported. Allergies Allergen ID Allergen Name Allergen Category Reaction Reaction Severity Criticality Documentation Date Start Date Code Code System Note Provider Name and Address Organization Details Recorded Time 92353 morphine sulfate medicatio n Not available Not available Not available 01/14/20242017 32863 RxNorm Aller gyNam e: 'Morp norm Deriv ative s'; Aller gyRea ction : 'Skin React ion'; Not Available [facility] 12:19:13 Medications Name Sig Start Date Stop Date Status Note LastModified by Organization Details LastModified Time melatonin / lemon balm tablets TAKE 1 TABLET BY MOUTH EVERY NIGHT AT BEDTIME active Not Available Not Available No t Available chewable vitamin c 500 mg chew active Not Available Not Available Not Available daily-willie multivitami n tabs active Not Available Not Available Not Available medroxyprog esterone 10 mg tablet TAKE 1 TABLET BY MOUTH DAILY FOR 10 DAYS TAKE FOR FIRST 10 DAYS OF EACH MONTH active Not Available Not Available No t Available acetaminoph en 325 mg tablet TAKE 2 TABLETS OI EVERY 4 HOURS NEEDED FOR PAIN 03/23 completed Not Available Not Available Not Available gabapentin 600 mg tablet TAKE 1 TABLET BY MOUTH THREE TIMES DAILY active Not Available Not Available No t Available trazodone 50 mg tablet TAKE 1 TABLET BY MOUTH AT BEDTIME active Not Available Not Available No t Available cetirizine 10 mg tablet TAKE 1 TABLET BY MOUTH DAILY active Not Available Not Available No t Available ibuprofen 800 mg tablet TAKE 1 TABLET BY MOUTH EVERY 8 HOURS active Not Available Not Available No t Available valacyclovi r 1 gram tablet TAKE 1 TABLET BY MOUTH EVERY 8 HOURS FOR 7 DAYS active Not Available Not Available No t Available prazosin 1 mg capsule TAKE 1 CAPSULE BY MOUTH EVERY MORNING active Not Available Not Available No t Available meloxicam 15 mg tablet TAKE 1 TABLET BY MOUTH EVERY DAY ONCE DAILY NEEDED FOR PAIN active Not Available Not Available No t Available phenazopyri dine 200 mg tablet TAKE 1 TABLET BY MOUTH THREE TIMES DAILY FOR 3 DAYS active Not Available Not Available No t Available metronidazo le 0.75 % (37.5 mg/5 gram) vaginal gel INSERT 1 APPLICATO RFUL VAGINALLY DAILY AT BEDTIME FOR 5 DAYS 03/27 completed Not Available Not Available Not Available prednisone 20 mg tablet TAKE 3 TABLETS BY MOUTH DAILY FOR 7 DAYS active Not Available Not Available No t Available clonazepam 0.5 mg tablet TAKE 1 TABLET BY MOUTH TWICE DAILY NEEDED active Not Available Not Available No t Available sertraline 100 mg tablet TAKE 2 TABLETS BY MOUTH DAILY active Not Available Not Available No t Available sumatriptan 50 mg tablet TAKE 1 TABLET BY MOUTH AT LEAST 2 HOURS BETWEEN DOSES NEEDED ONCE active Not Available Not Available No t Available topiramate 25 mg tablet TAKE 1 TABLET BY MOUTH TWICE DAILY active Not Available Not Available No t Available metronidazo le 500 mg tablet TAKE 1 TABLET BY MOUTH EVERY 12 HOURS FOR 7 DAYS 03/27 completed Not Available Not Available Not Available oxcarbazepi ne 300 mg tablet TAKE 1 TABLET BY MOUTH TWICE DAILY active Not Available Not Available No t Available Vitamin C 500 mg chewable tablet CHEW 1 TABLET DAILY active Not Available Not Available No t Available folic acid 400 mcg tablet TAKE 1 TABLET BY MOUTH EVERY DAY active Not Available Not Available No t Available acetaminoph en 500 mg tablet TAKE 1 TABLET BY MOUTH EVERY 6 HOURS NEEDED FOR FEVER OR PAIN 03/23 completed Not Available Not Available Not Available amitriptyli ne 25 mg tablet TAKE 3 TABLETS BY MOUTH AT BEDTIME 03/23 completed Not Available Not Available Not Available pantoprazol e 40 mg tablet,franny yed release TAKE 1 TABLET BY MOUTH DAILY active Not Available Not Available No t Available buspirone 10 mg tablet TAKE 1 TABLET BY MOUTH THREE TIMES DAILY 03/23 completed Not Available Not Available Not Available lidocaine 5 % topical patch APPLY 1 PATCH TOPICALLY TO THE SKIN DAILY REMOVE PATCHES AFTER 12 HOURS active Not Available Not Available No t Available gabapentin 300 mg capsule TAKE 2 CAPSULES BY MOUTH THREE TIMES DAILY active Not Available Not Available No t Available oxcarbazepi ne 600 mg tablet TAKE 1 TABLET BY MOUTH TWICE DAILY active Not Available Not Available No t Available folic acid 1 mg tablet active Not Available Not Available Not Available zaleplon 10 mg capsule TAKE 1 CAPSULE BY MOUTH EVERY NIGHT AT BEDTIME active Not Available Not Available No t Available zaleplon 5 mg capsule TAKE 1 CAPSULE BY MOUTH EVERY NIGHT AT BEDTIME active Not Available Not Available No t Available ibuprofen 600 mg tablet TAKE 1 TABLET BY MOUTH EVERY 8 HOURS NEEDED FOR FEVER OR PAIN active Not Available Not Available No t Available ondansetron 4 mg disintegrat ing tablet DISSOLVE 1 TABLET ON THE TONGUE EVERY 6 TO 8 HOURS NEEDED FOR NAUSEA OR VOMITING 02/26 completed Not Available Not Available Not Available fluticasone propionate 50 mcg/actuati on nasal spray,suspe nsion SHAKE LIQUID AND USE 1 SPRAY IN EACH NOSTRIL TWICE DAILY active Not Available Not Available No t Available amitriptyli ne 100 mg tablet TAKE 1 TABLET BY MOUTH EVERY DAY 03/23 completed Not Available Not Available Not Available naproxen 500 mg tablet TAKE 1 TABLET BY MOUTH EVERY 12 HOURS FOR MODERATE PAIN active Not Available Not Available No t Available Ventolin HFA 90 mcg/actuati on aerosol inhaler INHALE 2 PUFFS BY MOUTH EVERY 4 HOURS NEEDED FOR WHEEZING OR COUGH OR SHORTNESS OF BREATH active Not Available Not Available No t Available simethicone 80 mg chewable tablet CHEW AND SWALLOW 1 TABLET BY MOUTH THREE TIMES DAILY AFTER MEALS AND AT BEDTIME active Not Available Not Available No t Available buspirone 15 mg tablet TAKE 1 TABLET BY MOUTH THREE TIMES DAILY active Not Available Not Available No t Available oxycodone 5 mg tablet 02/26 completed Not Available Not Available Not Available cyclobenzap rine 5 mg tablet active Not Available Not Available Not Available bupropion HCl XL 150 mg 24 hr tablet, extended release TAKE 1 TABLET BY MOUTH EVERY MORNING active Not Available Not Available No t Available topiramate 50 mg tablet TAKE 1 TABLET BY MOUTH TWICE DAILY active Not Available Not Available No t Available nitrofurant oin monohydrate /macrocryst als 100 mg capsule TAKE 1 CAPSULE BY MOUTH TWICE DAILY FOR 5 DAYS 02/26 completed Not Available Not Available Not Available duloxetine 20 mg capsule,del ayed release TAKE 1 CAPSULE BY MOUTH TWICE DAILY active Not Available Not Available No t Available melatonin 5 mg tablet active Not Available Not Available No t Available oxycodone HCl-oxycodo ne-ASA as directed 1-2 TABLETS EVERY 4-[address] WHILE TAKING THIS MEDICATIO N 02/26 completed Statu s: 'Curr ent'; Not Available Not Available Not Available tranexamic acid 650 mg tablet TAKE 2 TABLETS BY MOUTH THREE TIMES DAILY FOR A. MAXIMUM OF 5 DAYS DURING MONTHLY MENSTRUAT ION active Not Available Not Available No t Available melatonin 10 mg-lemon balm leaf extract 1 mg tablet TAKE 1 TABLET BY MOUTH EVERY NIGHT AT BEDTIME active Not Available Not Available No t Available Daily-Willie (with folic acid) 400 mcg tablet TAKE 1 TABLET BY MOUTH DAILY active Not Available Not Available No t Available Paxlovid 300 mg (150 mg x 2)-100 mg tablets in a dose pack TK 2 NIRMATREL VIR TS AND 1 RITONAVIR T TOGETHER PO TWICE DAILY FOR 5 DAYS 03/27 completed Not Available Not Available Not Available Vitals Date Recorded Body height Body mass index (BMI) Body weight Provider Name and Address Organization Details Last Updated DateTime 11/21/2024 172.72 cm 48.7 kg/m2 714657.56 g Sergey Mast [facility] 11/21/2024 12:59:51 Date Recorded Body height Body mass index (BMI) Body weight Provider Name and Address Organization Details Last Updated DateTime 02/27/2024 172.72 cm 48.7 kg/m2 214778.56 g SIOMARA MEDELLIN [facility] 02/27/2024 13:20:34 Date Recorded Body height Body mass index (BMI) Body weight Provider Name and Address Organization Details Last Updated DateTime 03/27/2025 172.72 cm 48.7 kg/m2 963260.56 g Sergey Mast [facility] 03/27/2025 09:22:11 Social History Question Answer Notes LastModified by Organizat ion Details LastModified Time Tobacco Smoking Status Never Smoker Sergey Mast [facility] 03/27/2025 09:22:04 What Is Your Relationship Status? Single [email or web address] Information not available 03/27/2025 How Many Years Have You Smoked Tobacco? 0 [email or web address] Information not available 03/27/2025 Sex: Unknown Functional Status Question Answer Note LastModified by Organizat ion Details LastModified Time How many times per week do you consume alcohol? Less than 1 time per week [email or web address] Information not available 03/27/2025 Do you use any illicit or recreational drugs? No Information not available 03/27/2025 Do you or have you ever used any other forms of tobacco or nicotine? No [email or web address] Information not available 03/27/2025 Do you or have you ever used e-cigarettes or vape? Never used electronic cigarettes [email or web address] Information not available 03/27/2025 Mental Status None recorded. Family History Nothing Reported. Medical History Condition Response Anxiety/Depression Y Arthritis Y Sleep Apnea Y Asthma Y Gynecological HistoryNo gynecological history recorded. Obstetrics History GPAL:G 0 P 0 0 0 0 Past Encounters Encounter ID Performer Location Encounter Start Date Encounter Closed Date Diagnosis/Indication Diagnosis SNOMED-CT Code Diagnosis ICD10 Code Diagnosis IMO Codes Diagnosis Note [id number] Lloyd Suarez PA-C [facility] [address] [place] [address] 02/27/2024 13:12:49 03/19/2024 11:05:58 Bilateral osteoarthritis of knees [id number] 66335 M17.0 [id number] Lloyd Suarez PA-C [facility] [address] [place] [address] 11/21/2024 12:53:09 12/03/2024 14:47:58 Bilateral osteoarthritis of knees [id number] 12813 M17.0 [id number] Lloyd Suarez PA-C [facility] [address] [place] [address] 03/27/2025 09:18:09 04/14/2025 10:47:22 Bilateral osteoarthritis of knees 9169773410 79055 M17.0 Health Concerns Section Related Observation LastModified by Organization Detai ls LastModified Time None Recorded Concern Status LastModified by Organization Details LastModified Time None Recorded Advance Directives Directive None Recorded Payers Insurance Date Sequence Insurance Name Policy Number Policy Pandya Covered Member ID Pandya Member ID Guarantor Name 04/14/2025 1 [facility] [employer] [facility] (MEDICAID HMO) [id number] Alex Powell [id number] Alex Powell [facility] Episode No OBEpisode recorded.
--- OUTSIDE RECORDS SUMMARY | 2025-08-07 11:26 | XMS_ITS | Clinical Summary ---
Author Organization Patient Business Ser [facility] Address [address] [place] [address] Care Team Providers Care Motorized Squad Commanding Officer Name Role Phone Christian Villaseñor MD Primary Care Provider [phone] Allergies Active Allergy Reactions Criticality Noted Date [...] mouth daily for 180 days. 09/01/20 Active pantoprazole (PROTONIX) 40 mg EC tabletIndicatio ns:Gastroesopha geal reflux disease, unspecified whether esophagitis present Take 1 tablet (40 mg total) by mouth 1 (one) time each day. 30 each 2 06/11/20 25 025 Active topiramate (Topamax) 50 mg tabletIndicatio ns:Class 3 severe obesity due to excess calories with body mass index (BMI) of 40.0 to 44.9 in adult, unspecified whether serious comorbidity present ([facility] V24, [facility] V28) Take 1 tablet (50 mg total) by mouth at bedtime. 30 each 2 07/29/20 25 025 Active phentermine 15 mg capsuleIndicati ons:Class 3 severe obesity due to excess calories with body mass index (BMI) of 40.0 to 44.9 in adult, unspecified whether serious comorbidity present ([facility] V24, [facility] V28) Take 1 capsule (15 mg total) by mouth 1 (one) time each day before breakfast. Max Daily Amount: 15 mg 30 each 07/29/20 25 025 Active topiramate (Topamax) 50 mg tablet Take 1 tablet (50 mg total) by mouth at bedtime. 30 each 2 06/11/20 25 025 Discontinu ed(Reorder ) tirzepatide, weight loss, (Zepbound) 2.5 mg/0.5 mL injectionIndica tions:Class 3 severe obesity due to excess calories with body mass index (BMI) of 40.0 to 44.9 in adult, unspecified whether serious comorbidity present ([facility] V24, [facility] V28) Inject 0.5 mL (2.5 mg total) under the skin every 7 (seven) days for 4 doses. 2 mL 07/04/20 25 025 Active Problems Problem Noted Date Diagnosed Date Arthritis 09/30/2024 SARITA (obstructive sleep apnea) 09/30/2024 Class 3 severe obesity due t o excess calories with body mass index (BMI) of 50.0 to 59.9 in adult ([facility] V24, [facility] V28) 09/30/2024 Fibromyalgia 08/06/2020 Iron deficiency 07/12/2019 Vitamin D deficiency 07/12/2019 Encounters Date Type Department Care Team Description 07/14/2025 Telephone Bariatric Surgery [address] [phone] Alpa Curiel MD 07/01/2025 Telephone Bariatric Surgery - [address] [phone] Alpa Curiel MD 06/12/2025 Telephone Bariatric Surgery - [address] [phone] [place] 06/11/2025 9:45 AM EDT Office Visit Bariatric Surgery - [address] [phone] Alpa Curiel MD Class 3 severe obesity due to excess calories with body mass index (BMI) of 40.0 to 44.9 in adult, unspecified whether serious comorbidity present ([facility] V24, [facility] V28) (Primary Dx); Nausea and vomiting, unspecified [...] Anxiety DX:Anxiety Depression DX:Depression Insomnia DX:Insomnia Diabetes ([facility] V24, [facility] V28) DX:Diabetes ([facility]) Constipation DX:Constipation Asthma DX:Asthma SARITA (obstructive sleep [...] AM EST Office Visit Bariatric Surgery - [address] [place] [address] Alpa Curiel MD [address] [place] [phone] Health Maintenance Due Date Last Done [...] 2-dose series) 06/08/2025 05/11/2025 COVID-19 Vaccine ( season) 2025 09/06/2022, 09/26/2021, 03/01/2021, Additional history exists Influenza Vaccine (#1) 2025 , 09/26/2021, 08/03/2020, Additional history exists DTaP,Tdap,and Td Vaccines (2 - Td or Tdap) 02/21/2028 02/20/2018 RSV Immunization Adult Patients (1 - 1-dose 75+ series) 2061 HIB Vaccines Aged Out No longer eligi [...] Most Recently Relevant to Health Maintenance Insurance [facility] [employer]ICA[facility] ADVANTAGE [address] [place] [address] Care Teams Motorized Squad Commanding Officer Relationship Specialty Start Date End Date Christian Villaseñor MD [address] [place] [phone] [facility] - General 01/26/18
== END ==
LOC: HO.CARD 10:10
DX: R00.2 Palpitations (principal); R06.02 Shortness of breath; R42 Dizziness and giddiness
CPT/HCPCS: 93242; 93306; Q9957

== ENCOUNTER → 2025-08-07 10:13 | Outpatient (BNV) | payer OTHER, SELFPAY | PROVIDERS: Visit Provider Internal Medicine Cardiovascular Disease | DX: R06.02 Shortness of breath (principal) | CPT/HCPCS: 93306 ==

== ENCOUNTER → 2025-08-10 11:12 | Outpatient (REF) | payer OTHER, SELFPAY ==
--- NOTE | 2025-08-10 11:13 | CA_ITS ---
Acquisition Time: 2025-08-10 11:28:07 Total Exercise Time: 00:02:07 Test Indications: Dyspnea,Palpitations Medications: SEE H&P Protocol: NIXON Max HR: 121 BPM 66% of Pred: 181 BPM Max BP: 120/80 mmHG Max Work Load: 4.6 METS Exercise stress test with exercise 2 min 7 sec of Nixon protocol, achieving 65% MPHR, with fatigue and moderate shortness of breath, unable to keep walking on treadmill, no chest discomfort, without arrythmia during exercise, with ventricular bigeminy for first 3 minutes of recovery, with normotensive response to exercise, with nondiagnostic EKG for ischemia. Echo images obtained at rest and immediately post peak exercise. Definity contrast used. Test reviewed with Dr Jensen. Referred By: Ti Mcgowan Electronically Signed By: TIKA MENEZES
--- OUTSIDE RECORDS SUMMARY | 2025-08-10 12:43 | XMS_ITS | Clinical Summary ---
Author Organization Patient Business Ser [facility] Address [address] [place] [address] Care Team Providers Care Physician Practice Coordinator Name Role Phone Christian Villaseñor MD Primary Care Provider [phone] Allergies Active Allergy Reactions Criticality Noted Date [...] in adult, unspecified whether serious comorbidity present ([facility] V24, [facility] V28) Take 1 tablet (50 mg total) by mouth at bedtime. 30 each 2 07/29/20 25 025 Active phentermine 15 mg capsuleIndicati ons:Class 3 severe obesity due to excess calories with body mass index (BMI) of 40.0 to 44.9 in adult, unspecified whether serious comorbidity present ([facility] V24, [facility] V28) Take 1 capsule (15 mg [...] in adult, unspecified whether serious comorbidity present ([facility] V24, [facility] V28) Inject 0.5 mL (2.5 mg total) under the skin every 7 (seven) days for 4 doses. 2 mL 07/04/20 25 025 Active Problems Problem Noted Date Diagnosed Date Arthritis 09/30/2024 SARTIA (obstructive sleep apnea) 09/30/2024 Class 3 severe obesity due t o excess calories with body mass index (BMI) of 50.0 to 59.9 in adult ([facility] V24[facility] V28) 09/30/2024 Fibromyalgia 08/06/2020 Iron deficiency 07/12/2019 Vitamin D deficiency 07/12/2019 Encounters Date Type Department Care Team Description 07/14/2025 Telephone Bariatric Surgery [address] [phone] Alpa Curiel MD 07/01/2025 Telephone Bariatric Surgery - [address] [phone] Alpa Curiel MD 06/12/2025 Telephone Bariatric Surgery - [address] [phone] [place] 06/11/2025 9:45 AM EDT Office Visit Bariatric Surgery - [address] [phone] Alpa Curiel MD Class 3 severe obesity due to excess calories with body mass index (BMI) of 40.0 to 44.9 in adult, unspecified whether serious comorbidity present ([facility] V24, [facility] V28) (Primary Dx); Nausea and vomiting, unspecified vomiting type; Postoperative intestinal malabsorption; Gastroesophageal reflux disease, unspecified whether esophagitis present from Last 3 Months Immunizations Immunization Administration Dates Next Due H1N1 Inj Preservative Free 08/21/2019 Tdap Tetanus diptheria acell ular pertussis (Boostrix; Adacel) 7yo and older 02/20/2018 Surgical History Surgery Date Site/Laterality Comments OTHER SURGICAL HISTORY PROCEDURE: DENIES PREVIOUS SURGERY Medical History Medical History Date Comments Anxiety DX:Anxiety Depression DX:Depression Insomnia DX:Insomnia Diabetes ([facility] V24, [facility] V28) DX:Diabetes ([facility]) Constipation DX:Constipation Asthma DX:Asthma SARITA (obstructive [...] AM EST Office Visit Bariatric Surgery - [address] [place] [address] Alpa Curiel MD [address] [place] [phone] Health Maintenance Due Date Last Done [...] Relevant to Health Maintenance Insurance [facility] MEDICAID ADVANTAGE [address] [place] [address] Care Teams Physician Practice Coordinator Relationship Specialty Start Date End Date Christian Villaseñor MD [address] [place] [phone] [facility] - General 01/26/18
== END ==
LOC: HO.CARD 11:12
DX: R06.02 Shortness of breath (principal)
CPT/HCPCS: 93350; Q9957

== ENCOUNTER → 2025-08-10 11:13 | Outpatient (BNV) | payer OTHER, SELFPAY | PROVIDERS: Visit Provider Nurse Practitioner Family | DX: R06.02 Shortness of breath (principal); R53.83 Other fatigue | CPT/HCPCS: 93016; 93018; 93350; 93352 ==

== ENCOUNTER 2025-08-13 08:36 | Outpatient (AMB) | payer OTHER, SELFPAY ==
[2025-08-13 08:39] VITALS: BP 110/60; PULSE 51; O2SAT 99; BMI 42.0
--- NOTE | 2025-08-13 08:39 | A.OFFVIS_ITS ---
Vital Signs 08/13/25 08:39 Height 5 ft 7 in Weight 268 lb BMI 42.0 BP 110/60 Blood Pressure Location Rt brachial Position Sitting Pulse 51 Pulse Source Pulse Oximeter Pulse Oximetry (%) 99 Oxygen Delivery Method Room Air Intake Visit Reasons: [id number] Email Production Specialist Required: No Accompanied by: Self / Same As Patient Allergies morphine Allergy (Intermediate, Verified 08/13/25 08:45) Unknown Medication List - Last Reconciled 08/13/25 by CHUYITA Lee acetaminophen PO blood pressure kit-extra large As directed buspirone 10 mg PO TID 30 days gabapentin 600 mg PO TID 30 days lidocaine 4% (Lidocaine Pain Relief) 1 patch See Protocol transdermal DAILY multivitamin 1 tab PO DAILY oxcarbazepine 600 mg PO BID 30 days oxcarbazepine (Trileptal) PO pantoprazole 40 mg PO DAILY 30 days peg [id number] 1-0.2-0.2 % (Artificial Tears ([id number])) 1 drp ophthalmic (eye) BID PRN 30 days sertraline 200 mg (2 x 100 mg) PO DAILY 30 days topiramate PO trazodone 50 mg PO BEDTIME PRN 30 days HPI Comments Details: Right-handed 40-yr-old female presents for a follow-up appointment to discuss her sleep apnea and headaches. Patient reports she was previously seen at Dr. Watkins's office approximately a year ago, but would like to transition to the [facility]. PMH: Abnormal Pap smear of cervix Abnormal uterine bleeding (AUB) Castanon's palsy Facet arthropathy, lumbosacral Fibromyalgia Gastric bypass status for obesity Hypotension Migraine Mild intermittent asthma Morbid obesity status post gastric sleeve Obstructive sleep apnea (SARITA) Osteoarthritis of both knees Osteoarthritis of left knee Recurrent major depression-severe Sacroiliac joint dysfunction of both sides Severe obesity Varicose veins of legs Pertinent denials include: Kidney stones, seizures, family history of headache disorder Lifestyle considerations * Typical nutrition intake: tries to eat a healthy diet * Typical fluid intake per day: not much fluid d/t h/o bariatric surgery * Caffeine use: 3 cups of coffee per day, morning and afternoon * Sleep routine: Usual bedtime: 9-10 pm and wake-up time: varies, sometimes 6am, but if not sleeping well may sleep until 12pm * Sleep difficulties: as below * Substance use: Vape- socially rarely * Exercise:?not at this time * Employment:?disability * Reproductive health status: Menses is regular. Sleep questionnaire * Pt reports she has a h/o sleep apnea, being diagnosed in 2018 at [facility]. She has a Resmed CPAP machine, but has not received CPAP in over an year. She does not recall who her respiratory supply company use, but states they are in [place]. * She reports she has lost 80 lbs since her last sleep study. * She reports she sleeps better with CPAP, however has not been able to use it due to not having supplies. * Without the CPAP, she has snoring and daytime sleepiness. * She endorses leg cramps at rest, bruxism. * Denies restless legs Headache questionnaire * Types of headache disorders: 1 * Age/time of onset: 21 was with left facial paralysis * Preceding causes: denies * Previous work-up: Head CT in 2023, was unremarkable. No evidence of MRI in the last 5 years. Typical headache characteristics * Prodrome symptoms: denies * Aura: denies * Pain intensity: severe * Location, quality, characteristics: bifroantal and bioccipital-neck, pressure and pain * Associated symptoms: photophobia, less phonophobia, osmophobia, allodynia, nausea, vomiting, sometimes tongue feels numb, fatigue, cognitive difficulties, activity intolerance, * Atypical associated symptoms: left facial paralysis a/w migraine, watery eyes, left eyelid droop/blinking, swelling, sleeping, activity intolerance, lasting up to 1 month, 1st episode was in 2007. 2nd episode was left sided but milder in 2013. The 3rd episode was milder right-sided. The last episode was last year. * Postdrome: maybe tired. * Aggravating factors during this headache: light * Triggers that provoke this headache: stress. The facial paralysis comes when she has had the migarine attack repeatedly for days. 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 Mother Pacemaker Hypertension Brother Hypertension Social History Household Members: Children Housing: Apartment Do you presently have visiting nurse or other home services: No Patient Tobacco Use Status: Never used Tobacco e-Cigarette/Vaping Use: Never Used Substance Use Type: Marijuana service: No Sexual orientation: Straight/Heterosexual Physical Exam Vital Signs: Last Vital Signs Pulse 51 08/13/25 08:39 BP 110/60 08/13/25 08:39 Pulse Ox 99 08/13/25 08:39 Oxygen Delivery Method Room Air 08/13/25 08:39 BMI result Body Mass Index 42.0 Const Orientation/consciousness: patient oriented x3 Resp Effort & Inspection: normal respiratory effort and able to speak in complete sentences Neuro Other: Right upper and lower facial weakness General: patient oriented x3 Cranial nerves: Yes Individual cranial nerve findings present II: normal, III: normal, IV: normal, V: normal, : normal, VII: abnormal, VIII: normal, IX: normal, X: normal, XI: normal and XII: normal Cognition (Neuro): normal cognition Gait exam (Neuro): Normal gait present Motor exam (neuro): 5/5 motor strength present throughout Deep tendon reflexes (DTR's): Right triceps reflex intensity grade: 2+, Left triceps reflex intensity grade: 2+, Rt Biceps (C5, C6): 2+, Left biceps reflex intensity grade: 2+, Right brachioradialis reflex intensity grade: 2+, Left brachioradialis reflex intensity grade: 2+, Right patellar reflex intensity grade: 2+ and Left patellar reflex intensity grade: 2+ Pupils: Normal pupillary reactivity/response: bilateral Psych Appearance: grossly normal Mental Status: mental status grossly normal Speech and movement: Normal speech and movement present Affect: normal affect Attitude: cooperative Thought process: Normal thought process present Assessment & Plan Assessment & Plan (1) Worsening headaches: Code(s): R51.9 - Headache, unspecified Category: Medical (2) Weakness on right side of face: Code(s): R29.810 - Facial weakness Category: Medical (3) Migraine without aura and without status migrainosus, not intractable: Comment: Question if episodes of increased facial weakness, steatosis, watery eye, and numb tongue sensation are a migraine aura, versus sequelae of a history of Castanon's palsy, or other process. Code(s): G43.009 - Migraine without aura, not intractable, without status migrainosus Category: Medical Plan You are advised to undergo the following: In-lab sleep study to assess status of sleep apnea Brain MRI with and without contrast L Headache Management Tips Combining good self-care with some helpful tools can make managing headaches much easier. Healthy Habits * Eat a balanced diet * Drink enough water throughout the day, typically at least 64 oz of fluid per day * Get regular, adequate sleep consisting of 7-9 hours of sleep per night * Stay active with routine physical activity, typically at least 30 minutes 5 days per week * Stay connected with friends and family, enjoy meaningful activities, and take care of your mood Tracking Your Headaches * Write down when headaches happen, what helps, and any side effects of new treatments * Tracking is most important after changes in your treatment plan * Options: - Apps such as [employer] - A simple paper calendar Non-Medication Strategies * Light sensitivity: special glasses may help (blue-light or FL-41 filters, green lenses) or green-light therapy * Avoid wearing dark sunglasses indoors * Sound sensitivity: noise-canceling earplugs can reduce bothersome noise * Neuromodulation devices: certain medical devices can be used alone or with medications to lower headache frequency and severity These strategies may not stop every attack, but over time, they can reduce headache frequency, intensity, and impact. For acute (as needed) headache treatment: It is important to take acute medications at the first sign of headache. However, please be aware that frequently using most acute medications may increase the frequency of your headache attacks, as well as make your other treatments less effective. * Discontinue sumatriptan 50 mg tab * Trial Sumatriptan 100mg tab, 1/2 - 1 tab (50-100mg) at onset of headache, may repeat in 2 hours. Max of 2 tabs (200mg) per 24 hours. * May take sumatriptan with OTC Tylenol 650-1,000mg every 4-6 hours, Ibuprofen (liquid gels) 600mg every 6 hours, or Naproxen (liquid gels) 440mg q 12 hrs prn. * Potential adverse effects of triptans, include but are not limited to nausea, fatigue, chest tightness/tingling (usually passes within a few minutes), medication overuse headaches. Previous acute migraine medication trials: None other Acute migraine medication contraindications: None at this time Future considerations: Sumatriptan nasal spray or injection, if patient tolerates increased oral sumatriptan dose For headache prevention medication: Preventative medications should be taken routinely as prescribed for best effect, it may take several weeks for full effect to take effect. * Start Riboflavin 400mg daily in the morning * This is generally well tolerated, however some people may experience mild abdominal discomfort from use. * This will cause your urine to become bright yellow or orange, which is expected and not of any concern. * Start Magnesium 400mg daily at bedtime * Magnesium comes in many subtypes, such as magnesium oxide, glycinate, citrate, and even try magnesium combinations. Additionally magnesium comes in many forms, including tablets, capsules, powders or even liquid formulations. There is not a specific magnesium subtype or form known to be significantly more effective than another. Rather, the magnesium subtype inform that you best tolerate, is the best version for you. * Possible side effects of magnesium include, but are not limited to, GI upset, abdominal cramping, loose stools, and diarrhea * Discontinue topiramate 50 mg daily at bedtime order * Start topiramate 50 mg twice a day Previous migraine prevention medication trials: Amitriptyline 125 mg nightly- ineffective for headache. Migraine prevention medication contraindications: Would avoid beta-blockers or antihypertensive treatments due to recurrent hypotension. If you have not yet, we encourage you to enroll in the [facility] patient portal. We will follow-up upon review of above and with a follow-up clinic visit in 3-6 months or sooner as needed. Orders: Orders RT PSG in-lab sleep study 08/13/25 E66.01 - Morbid (severe) obesity due to excess calories, G47.19 - Other hypersomnia, G47.33 - Obstructive sleep apnea (adult) (pediatric) MR head/brain wo/w con Today G51.0 - Castanon's palsy, R29.810 - Facial weakness, R51.9 - Headache, unspecified Medications: New topiramate (Topamax) 50 mg PO BID 60 tabs 6RF 30 days sumatriptan succinate 50 - 100 mg orally at onset of headache, may repeat in 2 hrs PRN; max 2 tabs per day or 4 tabs/week (may take with Tylenol) 12 tabs 6RF migraine headache 30 days riboflavin (vitamin B2) 400 mg PO DAILY 90 tabs 3RF 90 days magnesium oxide may hold for loose stools 400 mg PO BEDTIME 90 tabs 3RF 90 days Coding Level of Care Code Est Pt Level 4 (65900) Complex EM visit Add On G2211 Diagnoses Worsening headaches R51.9 Weakness on right side of face R29.810 Migraine without aura and without status migrainosus, not intractable G43.009 [place] Sleepiness Scale Questions Sitting and reading: high chance of dozing Watching TV: high chance of dozing Sitting inactive in a theater, movie etc.: slight chance of dozing As a passenger in a car for an hour without break: would never doze Lying down in the afternoon when circumstances permit: high chance of dozing Sitting and talking to someone: would never doze Sitting quietly after lunch without alcohol: high chance of dozing In a car, while stopped for a few minutes in the traffic: would never doze ESS < 10: normal, ESS > 12: pathologic: 13
--- OUTSIDE RECORDS SUMMARY | 2025-08-13 08:56 | XMS_ITS | Clinical Summary ---
Author Organization Patient Business Ser [facility] Address [address] [place] [address] Care Team Providers Care Medical Professionals Name Role Phone Christian Villaseñor MD Primary Care Provider [phone] Allergies Active Allergy Reactions Criticality Noted Date [...] in adult, unspecified whether serious comorbidity present ([facility] V24, [facility] V28) Take 1 tablet (50 mg total) by mouth at bedtime. 30 each 2 07/29/20 25 025 Active phentermine 15 mg capsuleIndicati ons:Class 3 severe obesity due to excess calories with body mass index (BMI) of 40.0 to 44.9 in adult, unspecified whether serious comorbidity present ([facility] V24, [facility] V28) Take 1 capsule (15 mg total) [...] in adult, unspecified whether serious comorbidity present ([facility] V24, [facility] V28) Inject 0.5 mL (2.5 mg total) under the skin every 7 (seven) days for 4 doses. 2 mL 07/04/20 25 025 Active Problems Problem Noted Date Diagnosed Date Arthritis 09/30/2024 SARITA (obstructive sleep apnea) 09/30/2024 Class 3 severe obesity due t o excess calories with body mass index (BMI) of 50.0 to 59.9 in adult ([facility] V24, [facility] V28) 09/30/2024 Fibromyalgia 08/06/2020 Iron deficiency 07/12/2019 Vitamin D deficiency 07/12/2019 Encounters Date Type Department Care Team Description 07/14/2025 Telephone Bariatric Surgery [address] [phone] Alpa Curiel MD 07/01/2025 Telephone Bariatric Surgery - [address] [address] Alpa Curiel MD 06/12/2025 Telephone Bariatric Surgery - [address] [address] Corry CasasCRESSKILL, [place] 06/11/2025 9:45 AM EDT Office Visit Bariatric Surgery - [address] [address] Alpa Curiel MD Class 3 severe obesity due to excess calories with body mass index (BMI) of 40.0 to 44.9 in adult, unspecified whether serious comorbidity present ([facility] V24, [facility] V28) (Primary Dx); Nausea and vomiting, unspecified [...] Anxiety DX:Anxiety Depression DX:Depression Insomnia DX:Insomnia Diabetes ([facility] V24, [facility] V28) DX:Diabetes ([facility]) Constipation DX:Constipation Asthma DX:Asthma SARITA (obstructive sleep [...] AM EST Office Visit Bariatric Surgery - [address] [place] [address] Alpa Curiel MD [address] [place] [phone] Health Maintenance Due Date Last Done Comments Pneumococcal Vaccine: Pediatrics (0 to 5 Years) and At-Risk Patients (6 to 49 Years) (1 of 2 - PCV) 2005 Cervical Cancer Screening: Pap Smear 2007 HPV Vaccines (1 - 3-dose SCDM series) 2013 HIV Screening 07/16/2020 Hepatitis C Screening 07/16/2020 [...] Relevant to Health Maintenance Insurance [facility] MEDICAID ADVANTAGE Care Teams Medical Professionals Relationship Specialty Start Date End Date Christian Villaseñor MD [address] [place] [phone] [facility] - General 01/26/18
--- OUTSIDE RECORDS SUMMARY | 2025-08-13 08:56 | XMS_ITS | Data Portability ---
Author Organization [facility], [facility] Address [address] [place] [address] Care Team Providers Care Tapering Machine Operator Name Role Phone [facility] Primary Care Provider Assessment Encounter Date Assessment [...] gave good relief until recent. Problems ambulating. Gaan-weu-isjxaqa medications are helping somewhat but not significantly. [...] Organization Details Recorded Time No complaint s [id number] Active Status: 'I'; Not Available [facility] 4 09:24:28 Idiopathi c osteoarth ritis [id number] Active 2017 Problem Code: M17.12; Problem Code Type: ICD-10; Status: 'A'; Not Available [facility] 4 11:57:23 Sprain of left ankle [id number] 90450 Active 2018 Problem Code: S93.492D ; Problem Code Type: ICD-10; Status: 'A'; Not Available [facility] 4 11:57:22 Bilateral osteoarth ritis of knees 206368830094 107 Active 2023 SIOMARA MEDELLIN [facility] 4 07:42:29 Problem Notes None recorded. Procedures Surgical History Date Name Laterality Status Provider Name and Address Organization Details Recorded Time 5 JZKNEE INJ Sergio completed Lloyd Suarez PA-C [address], [place], [address], [facility] 03/27/2025 09:32:47 5 JZKNEE INJ Sergio completed Lloyd Suarez PA-C [address], [place], [address], [facility] 11/21/2024 13:06:32 4 JZKNEE INJ Sergio completed SIOMARA MEDELLIN [facility] 02/21/2024 07:42:28 2 Bariatric Surgery completed Sergey Mast [facility] 03/27/2025 09:22:04 Knee Surgery completed Sergey Mast [facility] 03/27/2025 09:22:04 Ankle/Foot Surgery completed Sergey Mast [place] [facility] 03/27/2025 09:22:04 Imaging Results None recorded. Procedure Notes None recorded. Medical Equipment None Reported. Allergies Allergen ID Allergen Name Allergen Category Reaction Reaction Severity Criticality Documentation Date Start Date Code Code System Note Provider Name and Address Organization Details Recorded Time 07207 morphine sulfate medicatio n Not available Not available Not available 01/14/20242017 31264 RxNorm Aller gyNam e: 'Morp norm Deriv ative s'; Aller gyRea ction : 'Skin React ion'; Not Available [facility] 12:19:13 Medications Name Sig Start Date Stop [...] Updated DateTime 11/21/2024 172.72 cm 48.7 kg/m2 779603.56 g Sergey Mast [facility] 11/21/2024 12:59:51 Date Recorded Body height Body mass index (BMI) Body weight Provider Name and Address Organization Details Last Updated DateTime 02/27/2024 172.72 cm 48.7 kg/m2 581619.56 g SIOMARA MEDELLIN [facility] 02/27/2024 13:20:34 Date Recorded Body height Body mass index (BMI) Body weight Provider Name and Address Organization Details Last Updated DateTime 03/27/2025 172.72 cm 48.7 kg/m2 419735.56 g Sergey Mast [facility] 03/27/2025 09:22:11 Social History Question Answer Notes LastModified by Organizat ion Details LastModified Time Tobacco Smoking Status Never Smoker Sergey Mast [facility] 03/27/2025 09:22:04 What Is Your Relationship Status? Single [email or web address] Information not available 03/27/2025 How Many Years Have You Smoked Tobacco? 0 [email or web address] Information not available 03/27/2025 Sex: Unknown Functional Status Question Answer Note LastModified by Organizat ion Details LastModified Time How many times per week do you consume alcohol? Less than 1 time per week [email or web address] Information not available 03/27/2025 Do you use any illicit or recreational drugs? No Information not available 03/27/2025 Do you or have you ever used any other forms of tobacco or nicotine? No [email or web address] Information not available 03/27/2025 Do you or have you ever used e-cigarettes or vape? Never used electronic cigarettes [email or web address] Information not available 03/27/2025 Mental Status None recorded. Family History Nothing Reported. Medical History Condition Response Anxiety/Depression Y Arthritis Y Asthma Y Sleep Apnea Y Gynecological HistoryNo gynecological history recorded. Obstetrics History GPAL:G 0 P 0 0 0 0 Past Encounters Encounter ID Performer Location Encounter Start Date Encounter Closed Date Diagnosis/Indication Diagnosis SNOMED-CT Code Diagnosis ICD10 Code Diagnosis IMO Codes Diagnosis Note [id number] Lloyd Suarez PA-C [facility] [address] [place] [address] 02/27/2024 13:12:49 03/19/2024 11:05:58 Bilateral osteoarthritis of knees [id number] 79180 M17.0 [id number] Lloyd Suarez PA-C [facility] - [facility] [address] [place] [address] 11/21/2024 12:53:09 12/03/2024 14:47:58 Bilateral osteoarthritis of knees 4991270053 12186 M17.0 [id number] Lloyd Suarez PA-C [facility] - [facility] [address] [place] [address] 03/27/2025 09:18:09 04/14/2025 10:47:22 Bilateral osteoarthritis of knees 7665897485 89589 M17.0 Health Concerns Section Related Observation LastModified by Organization Detai ls LastModified Time None Recorded Concern Status LastModified by Organization Details LastModified Time None Recorded Advance Directives Directive None Recorded Payers Insurance Date Sequence Insurance Name Policy Number Policy Pandya Covered Member ID Pandya Member ID Guarantor Name 04/14/2025 1 [facility] [employer] [facility] (MEDICAID HMO) [id number] Alex Powell [id number] Alex Powell OBGyn Episode No OBEpisode recorded.
--- OUTSIDE RECORDS SUMMARY | 2025-08-13 08:56 | XMS_ITS | Clinical Summary ---
Author Organization [facility] Address [address] [place] [address] Care Team Providers Care Physician Office Assistant Name Role Phone Unavailable Primary Care Provider [...] Drug Screen 11/12/2024 Depression Annual Screen 11/12/2024 [id number] ( season) 2025 09/06/2022, 09/26/2021, 03/01/2021, Additional [...] Most Recently Relevant to Health Maintenance Insurance [facility] MEDICA[place] D[place] [facility] [place] [id number]
== END 2025-08-13 10:02 | disposition home or self-care (01) ==
LOC: HO.HSMS 08:37
PROVIDERS: Visit Provider Nurse Practitioner Family
DX: R51.9 Headache, unspecified (principal); R29.810 Facial weakness; G43.009 Migraine without aura, not intractable, without status migrainosus
CPT/HCPCS: 99214; G2211

== ENCOUNTER → 2025-08-13 08:36 | Outpatient (BNVA) | payer OTHER, SELFPAY | PROVIDERS: Visit Provider Nurse Practitioner Family | DX: G43.009 Migraine without aura, not intractable, without status migrainosus (principal); R29.810 Facial weakness; E66.01 Morbid (severe) obesity due to excess calories | CPT/HCPCS: 99212 ==

== ENCOUNTER → 2025-09-09 10:32 | Outpatient (BNV) | payer OTHER, SELFPAY | PROVIDERS: Visit Provider Radiology Diagnostic Radiology | DX: R29.810 Facial weakness (principal) | CPT/HCPCS: 70553 ==

== ENCOUNTER 2025-09-09 10:34 | Outpatient (REF) | payer OTHER, SELFPAY ==
--- NOTE | ~2025-09-09 | MR_ITS ---
EXAMINATION: MR BRAIN WITHOUT AND WITH CONTRAST CLINICAL INFORMATION: R29.810. Facial weakness. Castanon's palsy, bilaterally.. COMPARISON: Correlated to noncontrast CT dated April 09, 2024. TECHNIQUE: Multiplanar, multisequence MRI of the brain was obtained before and after the intravenous administration of 10.0 mL gadolinium based (Gadavist) without reported immediate complications. FINDINGS: No restricted diffusion. No acute intracranial hemorrhage, mass effect, midline shift, hydrocephalus or herniation. Kendall-white matter differentiation is normal. Posterior cranial fossa contents demonstrated no gross signal abnormality or mass effect. Borderline position cerebellar tonsils in the foramen magnum. No signal abnormality in the facial nerves. There is symmetric homogeneous enhancement of the tympanic and mastoid segments of the facial nerves. Cochlear and vestibular components of the 8th cranial nerves demonstrate no signal abnormality or enhancing mass. No enhancing lesion in the cerebellopontine angle cistern. Flow-void signal within the main cerebral vessels is normal. Sellar/suprasellar region is normal. Prominent palatine tonsils with restricted diffusion MR/MR head/brain wo/w con IMPRESSION: No abnormal enhancing lesion. No acute stroke. Probable physiologic enhancement of the tympanic and mastoid segments of the facial nerves. Borderline position cerebellar tonsils. Inflammatory versus infectious processes, palatine tonsil. Lymphoproliferative disorder cannot be excluded. Electronically signed by: Roland Ortega MD 09/09/2025 11:52 AM EDT
== END 2025-09-09 10:35 | disposition home or self-care (01) ==
LOC: HO.MRI 10:34
PROVIDERS: Visit Provider Nurse Practitioner Family
DX: R51.9 Headache, unspecified (principal); G51.0 Bell's palsy
CPT/HCPCS: 70553; A9585

== ENCOUNTER 2025-09-10 15:07 | Outpatient (AMB) | payer OTHER, SELFPAY ==
[2025-09-10 15:10] VITALS: BP 112/64; PULSE 62; BMI 41.5
--- NOTE | 2025-09-10 15:10 | A.OFFVIS_ITS ---
Vital Signs 09/10/25 15:10 Height 5 ft 7 in Weight 264 lb 15.93 oz BMI 41.5 BP 112/64 Blood Pressure Location Lt brachial Position Sitting Pulse 62 Pulse Source Pulse Oximeter Intake Visit Reasons: follow up s/p testing Park Keeper Required: Yes Park Keeper Services: Park Keeper Present Park Keeper Name: larisa easton [id number] Accompanied by: Self / Same As Patient Allergies morphine Allergy (Intermediate, Verified 09/10/25 15:14) Unknown HPI Comments Details: This is a 40-year-old female patient coming in for a follow-up visit. Patient was seen in the office previously for low blood pressures and chest discomfort for which patient was supposed to get stress testing and Holter study done but was never completed. Recently patient returned with reports of shortness of breath, palpitations, and low blood pressures for which patient was emphasized the need to complete the Holter study, stress test, and an echocardiogram. Patient is here to review the results for these and is otherwise reporting feeling well overall without any cardiac symptoms of exertional chest pain, shortness of breath, palpitations, dizziness, orthopnea, PND, leg edema, presyncope or syncope. [facility] Medical History Chronic post-traumatic stress disorder (PTSD) MDD (major depressive disorder), recurrent episode, moderate Otoole's palsy Adjustment disorder with mixed anxiety and depressed mood Surgical History History of foot surgery History of bariatric surgery Family History Father No problems noted. Mother Pacemaker Hypertension Brother Hypertension Social History Household Members: Children Housing: Apartment Do you presently have visiting nurse or other home services: No Patient Tobacco Use Status: Never used Tobacco e-Cigarette/Vaping Use: Never Used Substance Use Type: Marijuana service: No Sexual orientation: Straight/Heterosexual Review of Systems Const Denies daytime sleepiness, Denies difficulty sleeping, Denies snoring, Denies stops breathing during sleep and Denies weakness Card Denies chest pain, Denies rapid heart rate, Denies irregular heart rhythm, Denies claudication, Denies leg edema, Denies lightheadedness, Denies palpitations, Denies dyspnea, Denies dyspnea on exertion, Denies orthopnea, Denies paroxysmal nocturnal dyspnea and Denies slow heart rate Resp Denies cough, Denies dyspnea, Denies dyspnea on exertion and Denies snoring GI Reports no additional complaints, Denies hematochezia, Denies change in stool character and Denies dyspepsia Musc Denies abnormal gait, Denies muscle weakness and Denies numbness Neuro Denies abnormal gait, Denies numbness and Denies weakness Endo Denies palpitations Physical Exam Vital Signs: Last Vital Signs Pulse 62 09/10/25 15:10 BP 112/64 09/10/25 15:10 BMI result Body Mass Index 41.5 Const General: cooperative, healthy appearing, comfortable and no acute distress Orientation/consciousness: patient oriented x3 HEENT Head: Yes normal to inspection Neck Neck: Yes normal visual inspection, Yes trachea midline and Yes supple Chest Chest palpation & inspection: normal inspection of the chest Resp Effort & Inspection: normal respiratory effort Auscultation: clear to auscultation bilaterally, no crackles, no rales, no rhonchi and no wheezes Cardio Jugular venous distension: no JVD Palpation: normal PMI Rate: regular rate Rhythm: regular rhythm Heart sounds: S1 normal heart sound present, S2 normal heart sound present, no click, no gallops, no murmurs and no rubs Peripheral pulses: Peripheral pulses 2+ throughout GI Inspection: Yes normal to inspection Palpation (GI): Soft to palpation Auscultation: normal bowel sounds Skin General skin exam: no rashes or lesions noted Neuro General: patient oriented x3 Extrem General: Yes normal to inspection, No no pedal edema and No calf tenderness Psych Appearance: grossly normal Mental Status: mental status grossly normal Speech and movement: Normal speech and movement present Assessment & Plan Assessment & Plan (1) SOB (shortness of breath) on exertion: Code(s): R06.02 - Shortness of breath Category: Medical (2) Palpitations: Code(s): R00.2 - Palpitations Category: Medical Plan 08/07/2025-echo study showed a normal LV systolic function with an ejection f raction between 55-60% with no wall motion abnormalities. 08/07/2025-Holter study showed underlying normal sinus rhythm with no arrhythmia or pauses noted. 08/10/2025-patient also underwent stress echocardiogram where patient only lasted for 2 minutes 7 seconds on the treadmill due to trouble walking on a treadmill, shortness of breath, and fatigue. Patient had no chest pain or ischemic changes at the achieve workload. Echo study at the at the achieved workload was normal. Given her resolution of symptoms, no further testing indicated at this time. Patient understands that if she gets the chest pains and shortness of breath again then we can pursue further testing with a coronary CTA. Blood pressure today is well-controlled. Advised monitoring at home with a goal less than 130/80. Patient denies any recurrence of neurological symptoms. Given her history of otoole palsy, patient has follow up with neurology. Advised on heart healthy diet, regular exercise, losing weight, adequate hydra tion, and management of vascular risk factors. Patient will follow up in the office on an as-needed basis. In the interim, patient will call the office with any concerns or change in symptoms. Advised to seek ER care in case of exertional chest pain not resolved with rest. This note was generated using voice recognition software. While every effort has been made to ensure accuracy and proper retail warehouse supervisor, there may be occasional errors that could affect the content or meaning of the described symptoms. Coding Level of Care Code Est Pt Level 3 (31483) Diagnoses SOB (shortness of breath) on exertion R06.02 Palpitations R00.2 Time Spent (min) 29 Comment Time spent in reviewing the chart, test results, assessment, counseling and documentation.
--- OUTSIDE RECORDS SUMMARY | 2025-09-10 17:56 | XMS_ITS | Clinical Summary ---
Author Organization Patient Business Ser [facility] Address [address] [place] [address] Care Team Providers Care Legal Administrative Assistant Name Role Phone Christian Villaseñor MD Primary Care Provider [phone] Allergies Active Allergy Reactions Criticality Noted Date Comments Morphine 07/01/2019 Medications ALBUTEROL SULFATE ORAL Take by mouth. Ac tive UNABLE TO FIND Inhale into the lungs. Active ETONOGESTREL SDRM Inject into the skin. Active GABAPENTIN, BULK, MISC Take by mouth. Acti ve fluticasone propionate (FLONASE) 50 mcg/actuation nasal spray Administer 1 spray into each nostril 2 (two) times a day. 2 Active ONDANSETRON ORAL Take 4 mg by mouth every 8 hours as needed (nausea). 2 Active OXCARBAZEPINE ORAL Take by mouth. Activ e WHEAT DEXTRIN ORAL Take 4 g by mouth daily. 2 Active acetaminophen (TYLENOL) 500 mg tablet Take 2 Tablets by mouth every 8 hours for 30 days. 2 Active amitriptyline (ELAVIL) 100 mg tablet TAKE 1 TABLET BY MOUTH EVERY NIGHT AT BEDTIME WITH 25 MG TABLET 2 Active amitriptyline (ELAVIL) 25 mg tablet TAKE 1 TABLET BY MOUTH EVERY DAY ALONG WITH 100MG 2 Active busPIRone (BUSPAR) 10 mg tablet TAKE 1 TABLET BY MOUTH THREE TIMES DAILY 2 Active cetirizine (ZyrTEC) 10 mg tablet Take 10 mg by mouth. 1 Active cholecalciferol (VITAMIN D-3) 1,250 mcg (50,000 unit) capsule TAKE 1 CAPSULE BY MOUTH 1 TIME A WEEK 3 Active ferrous sulfate 325 mg (65 mg iron) EC tablet Take 1 tablet (325 mg total) by mouth 1 (one) time each day. 3 Active HYDROmorphone (DILAUDID) 2 mg tablet Take 1 tablet every 4 hours as needed moderate pain. 2 Active lidocaine (LIDODERM) 5 % patch APPLY 1 PATCH TOPICALLY TO THE SKIN DAILY NEEDED FOR MILD PAIN REMOVE AFTER 12 HOURS 2 Active medroxyPROGESTE Cr (PROVERA) 10 mg tablet TAKE 1 TABLET BY MOUTH DAILY FOR FIRST 10 DAYS EACH MONTH 2 Active ondansetron (ZOFRAN) 4 mg tablet Take 1 tablet (4 mg total) by mouth every 8 (eight) hours if needed. 2 Active peg 400-hypromellos e-glycerin 1-0.2-0.2 % drops USE 1 DROP IN BOTH EYES TWICE DAILY NEEDED FOR DRY EYES 2 Active polyethylene glycol (MIRALAX) 17 gram packet Take 1 Packet by mouth daily as needed for Constipation for up to 14 days. 2 Active rivaroxaban (Xarelto) 10 mg tablet Take 10 mg by mouth daily. Take with food. 2 Active sertraline (ZOLOFT) 100 mg tablet Take 100 mg by mouth daily. Active simethicone (MYLICON) 80 mg chewable tablet Take 1 Tablet by mouth every 6 hours as needed for Flatulence for up to 30 days. 3 Active traZODone (DESYREL) 50 mg tablet Take 1 tablet (50 mg total) by mouth at bedtime as needed. 2 Active ursodioL (ACTIGALL) 300 mg capsule Take 2 Capsules by mouth daily for 180 days. 2 Active topiramate (Topamax) 50 mg tabletIndicatio ns:Class 3 severe obesity due to excess calories with body mass index (BMI) of 40.0 to 44.9 in adult, unspecified whether serious comorbidity present (CMS/HCC V24, CMS/HCC V28) Take 1 tablet (50 mg total) by mouth at bedtime. 30 each 2 5 025 Active phentermine 15 mg capsuleIndicati ons:Class 3 severe obesity due to excess calories with body mass index (BMI) of 40.0 to 44.9 in adult, unspecified whether serious comorbidity present ([facility], [facility] V28) Take 1 capsule (15 mg total) by mouth 1 (one) time each day before breakfast. Max Daily Amount: 15 mg 30 each 5 025 Active pantoprazole (PROTONIX) 40 mg EC tabletIndicatio ns:Gastroesopha geal reflux disease, unspecified whether esophagitis present Take 1 tablet (40 mg total) by mouth 1 (one) time each day. 30 each 2 5 025 Active Problems Problem Noted Date Diagnosed Date Arthritis 09/30/2024 SARITA (obstructive sleep apnea) 09/30/2024 Class 3 severe obesity due t o excess calories with body mass index (BMI) of 50.0 to 59.9 in adult ([facility] V[facility], [facility] V28) 09/30/2024 Fibromyalgia 08/06/2020 Iron deficiency 07/12/2019 Vitamin D deficiency 07/12/2019 Encounters Date Type Department Care Team Description 07/14/2025 Telephone Bariatric Surgery [address] [address] Alpa Curiel MD 07/01/2025 Telephone Bariatric Surgery [address] [address] Alpa Curiel MD 06/12/2025 Telephone Bariatric Surgery [address] [address] Corry Casas [place] 06/11/2025 9:45 AM EDT Office Visit Bariatric Surgery [address] [address] Alpa Curiel MD Class 3 severe obesity due to excess calories with body mass index (BMI) of 40.0 to 44.9 in adult, unspecified whether serious comorbidity present ([facility] V[facility], [facility] V28) (Primary Dx); Nausea and vomiting, unspecified [...] Anxiety DX:Anxiety Depression DX:Depression Insomnia DX:Insomnia Diabetes ([facility] V[facility], [facility] V28) DX:Diabetes ([facility]) Constipation DX:Constipation Asthma DX:Asthma SARITA (obstructive sleep [...] Care Team (Late st Contact Info) Description 09/28/2025 8:30 AM EST Appointment [facility] X[facility] [address] [place] [address] 09/29/2025 9:15 AM EST Office Visit Bariatric Surgery - [address] [place] [address] Alpa Curiel MD [facility] [address] Health Maintenance Due Date Last [...] mg/dL Blood Venous blood specimen / Unknown [facility] Provider LAB BLOOD ORDERABLES Claire l Result from Last 3 Months or Most Recently Relevant to Health Maintenance Insurance [facility] MEDICAID ADVANTAGE Care Teams Legal Administrative Assistant Relationship Specialty Start Date End Date Christian Villaseñor MD [address] [place] [phone] PCP - General 01/26/18
== END 2025-09-10 15:34 | disposition home or self-care (01) ==
LOC: HO.HCS 15:08
DX: R06.02 Shortness of breath (principal); R00.2 Palpitations
CPT/HCPCS: 99213

== ENCOUNTER → 2025-09-10 15:07 | Outpatient (BNVA) | payer OTHER, SELFPAY | DX: R06.02 Shortness of breath (principal); R00.2 Palpitations | CPT/HCPCS: 99212 ==

== ENCOUNTER → 2025-10-16 19:30 | Outpatient (REF) | payer OTHER, SELFPAY | LOC: HO.SL 19:30 | PROVIDERS: Visit Provider Nurse Practitioner Family | DX: G47.33 Obstructive sleep apnea (adult) (pediatric) (principal); G47.19 Other hypersomnia; E66.01 Morbid (severe) obesity due to excess calories | CPT/HCPCS: 95810 ==

== ENCOUNTER → 2025-10-16 19:42 | Outpatient (BNV) | payer OTHER, SELFPAY | PROVIDERS: Visit Provider Psychiatry & Neurology Neurology | DX: G47.10 Hypersomnia, unspecified (principal); R06.83 Snoring | CPT/HCPCS: 95810 ==